=== PATIENT | female | born 1950 | race Caucasian/White ===

== ENCOUNTER 2021-10-18 13:36 | Outpatient (CLI) | payer MEDICARE, OTHER, SELFPAY ==
[2021-10-18 15:29] LABS: Basophils # 0.1 10^3/uL (0.0-0.1); Basophils % 1.8 %; Eosinophils # 0.2 10^3/uL (0.0-0.8); Eosinophils % 2.5 %; Hematocrit 45.6 % (37.0-47.0); Hemoglobin 14.1 g/dL (11.5-15.3); Lymphocytes # 1.3 10^3/uL (0.8-4.8); Lymphocytes % 17.1 %; Mean Corpuscular HGB Conc 30.9 g/dL (30.0-36.0); Mean Corpuscular Hemoglobin 31.9 pg (28.0-34.0); Mean Corpuscular Volume 103.2 fl (81-99); Mean Platelet Volume 10.1 fL (7.4-10.4); Monocytes # 0.5 10^3/uL (0.2-0.9); Monocytes % 6.7 %; Neutrophils % 71.4 %; Nucleated Red Blood Cells % 0 %; Platelet Count 576 10^3/cmm (130-400); Red Blood Count 4.42 10^6/uL (4.1-5.3); Red Cell Distribution Width 16.9 % (12.1-15.1); White Blood Count 7.3 10^3/uL (4.0-10.0)
[2021-10-18 15:57] LABS: Alanine Aminotransferase 7 U/L (0-33); Albumin Level 3.9 g/dL (3.5-5.2); Alkaline Phosphatase 90 IU/L (35-105); Blood Urea Nitrogen 27 mg/dL (8-23); Calcium 8.7 mg/dL (8.5-10.5); Carbon Dioxide 26 mmol/L (22-29); Chloride 100 mmol/L (98-107); Globulin 1.9 g/dL (1.3-4.6); Glucose 89 mg/dL (65-115); Osmolality Calculated 293 mOsm/kg (285-295); Sodium 139 mmol/L (136-145); Total Bilirubin 0.2 mg/dL (0.15-1.2); Total Protein 5.8 g/dL (6.6-8.7)
[2021-10-18 16:06] LABS: Anion Gap 18.4 (5-19); Aspartate Amino Transferase 15 U/L (0-32); Lactate Dehydrogenase 263 U/L (135-214); Potassium 5.4 mmol/L (3.5-5.1)
--- NOTE | 2021-10-18 18:36 | ONC CON_ITS ---
Dr. Mistry New Patient Note Patient: Yina Mata Unit #: [id number]: [id number] Dicatated By: Ap Mistry M.D.Date of Visit: Oct 18, 2021 Onc MED New Patient/Consult Referring Physician: Dr. TORRIE CHOI D.O. Chief Complaint: Essential thrombocythemia. History of Present Illness: This is a 71-year-old woman with a known diagnosis of essential thrombocythemia, JAK2 mutation positive. She had moved here from [place], [place] in June 2021. She had been under the care of a rehab aid for essential thrombocythemia. According to the available records, it was initially diagnosed in 2005. It appears that at that time she had pancytosis. Molecular analysis on the bone marrow confirmed presence of the JAK2 V617F mutation. It was negative for BCR/abl. She initially began treatment with hydroxyurea, but she did not tolerate it well. She was then treated with anagrelide until 2019, when it was no longer available. In December 2019 she restarted hydroxyurea. She has been able to tolerate it taking 1000 mg on Mondays, Wednesdays, and Fridays, 500 mg on Tuesdays and , and no treatment on weekends. With that dosage, she has been able to maintain a platelet count in the range of 500,000-600,000. Her history is also significant for having been hospitalized for a bleeding ulcer sometime in 2018 or early 2019. As of November 2019 she had become mildly anemic with her serum iron studies consistent with iron deficiency, and she was given parenteral iron infusion. Over the next year her hemoglobin increased from 11.2 g up to 16.7 g in November 2020. Her white blood cell count at that time was 11,100 and her platelet count was 557,000. She continued hydroxyurea at the same dosage. She says she feels pretty good generally, though she does have limited activity due to pretty severe arthritis pain in her knees. She has been reluctant to have a knee replacement due to a very complicated left total hip arthroplasty back in 2011. She is able to do light work. ECOG score is 1. She has good appetite and she has gained a little weight. She has not had fever. She occasionally has sweating at night. She occasionally has mouth sores with the hydroxyurea. She has not had sore throat or difficulty swallowing. She occasionally has cough. She says her breathing is pretty good, though she does have COPD. She does not complain of chest pain. She has occasional acid reflux symptoms. She has constipation off and on. She has no complaints. She also has joint pain in her hands and she has chronic low back pain. She does not complain of headache or dizziness. She has numbness in her feet due to peripheral neuropathy. Past Medical History: Her medical history includes anxiety, chronic obstructive pulmonary disease, degenerative arthritis, depression, dyslipidemia, history of bleeding ulcer in 2019, history of pulmonary embolism in 2018, macular degeneration, peripheral neuropathy, and valvular heart disease and congestive heart failure. Past Surgical History: Her surgical/procedural history includes left total hip arthroplasty in 2011 with multiple subsequent procedures on the left hip, ORIF for right ankle fracture in 2004, and tonsillectomy. Medications: Gabapentin 1 Capsule (of 400 mg) Oral four times a day, Hydroxyurea 1 Capsule (of 500 mg) Oral, Ibuprofen 1 - 4 Tablet (of 200 mg) Oral daily PRN, Mirtazapine 1 Tablet (of 15 mg) Oral daily, Multi Vitamin/Minerals 2 Tablet Oral daily, Omeprazole 1 Capsule (of 20 mg) Capsule Delayed Release Oral daily, oxyCODONE HCl 1 Tablet (of 15 mg) Oral four times a day PRN, Rivaroxaban 1 Tablet (of 20 mg) Oral daily, Spiriva HandiHaler 1 Capsule (of 18 mcg) Inhalation daily, Turmeric 1 Tablet (of 500 mg) Oral daily Allergies: No Known Allergies. Social History: Ms. Mata is . She has a history of smoking 1 pack of cigarettes daily for 50 years. She quit smoking in 2019. She has since then been chewing nicotine pouches. She had heavy alcohol use while she was in her 40s. Since 2019 she has been drinking just very occasionally. Family History: Ms. Mata's mother at age 95. Ms. Mata's father at age 40: cirrhosis. Father at age 40 with liver cirrhosis due to alcohol. Mother with natural causes at age 95. She has 1 sister who is in good health. Review Of Symptoms: Constitutional - Her energy is pretty good but she is a little slow and her activity is limited due to knee problems. She has good appetite and she has gained a little weight. She has not had fever. She occasionally has sweating at night. ECOG score is 1, Eyes - No change in vision, but she has glaucoma and macular degeneration, ENMT - She has hearing loss and tinnitus. No sinus congestion/drainage. No mouth sores. No sore throat or difficulty swallowing, Hematologic/Lymphatic - She bleeds easily from minor cuts. She does not have abnormal bruising, Respiratory - She says her breathing is pretty good. She has just occasional cough. No pleuritic pain or hemoptysis, Cardiovascular - No angina pain. No palpitations, Gastrointestinal - No nausea or vomiting. She occasionally has acid reflux. She has constipation off and on. No blood in the stool or black stools, Genitourinary (F) - No dysuria or hematuria. She has urinary frequency and nocturia. No urgency or incontinence, Musculoskeletal - She has pretty severe arthritis pain in her knees, left worse than right. She also has pain in her hands, and she has low back pain, Integumentary - No skin rash or other skin changes, Neurologic - No headache or dizziness. She has numbness in her feet, Psychiatric - She has had depression. No insomnia. Vital Signs: Performed on Oct 18, 2021 14:41: 3, 6, 21.86, 1.74 sq.m, 67 in, 92 % (LOW), 65 /min, 16 /min, 110/63 mm(hg), 98.2 F (LOW), and 139.6 lbs (HIGH). Physical Examination: Constitutional - She has limited mobility. She does not appear acutely ill, Eyes - Sclerae nonicteric. Conjunctivae clear, ENMT - No lesions noted in the oral cavity, Neck - No mass or thyromegaly, Hematologic/Lymphatic - No cervical, clavicular, or axillary adenopathy, Respiratory - Lungs are clear with diminished air movement bilaterally, Cardiovascular - Heart rhythm is regular. There is no murmur, gallop, or rub noted, Abdomen - Soft and non-tender. Liver is not enlarged. I am not able to palpate the spleen. There is no abdominal mass or ascites noted and there is no inguinal adenopathy, Back/Spine - No spine or CVA tenderness noted, Extremities - Slight edema. She has good dorsalis pedis pulses bilaterally, Integumentary - No rashes. No suspicious skin lesions noted, Neurologic - No focal neurologic deficits noted. Problem List: 1. Essential thrombocythemia, JAK2 mutation positive. 2. Degenerative arthritis with debilitating knee pain. 3. COPD. 4. GERD with history of bleeding ulcer in 2019. 5. History of pulmonary embolism in 2019, on chronic anticoagulation. 6. Valvular heart disease and history of congestive heart failure. 7. Dyslipidemia. 8. Peripheral neuropathy. 9. Macular degeneration. 10. Anxiety/depression. Problems Addressed with this Encounter and Plan: 1. Patient with longstanding history of essential thrombocythemia, JAK2 mutation positive. She had pancytosis at initial diagnosis, and it is unclear to me why she was labeled as essential thrombocythemia as opposed to polycythemia rubra vera. It is of no practical importance other than with polycythemia we would add phlebotomy to keep her hematocrit at 42% or less. However, as long as her other blood counts are adequately controlled and she is stable clinically, I will just have her continue the hydroxyurea at the same dosage. I will check baseline laboratory studies today to include CBC, comprehensive metabolic profile, and LDH level. Given her long-term stability, I will just plan to monitor her at 3-month intervals. 2. She has a history of pulmonary embolism in 2019. In the setting of an underlying myeloproliferative disorder, she should be on long-term anticoagulation. She will continue rivaroxaban 20 mg daily. Signed By: Ap Mistry M.D. <<Signature on File>>
== END 2021-10-18 13:37 | disposition home or self-care (01) ==
LOC: ONCMED 13:50
PROVIDERS: PCP Family Medicine; Visit Provider Internal Medicine Medical Oncology
DX: D47.3 Essential (hemorrhagic) thrombocythemia (principal); F41.9 Anxiety disorder, unspecified; J44.9 Chronic obstructive pulmonary disease, unspecified; F32.A Depression, unspecified; I50.9 Heart failure, unspecified; E78.5 Hyperlipidemia, unspecified; Z79.899 Other long term (current) drug therapy; Z86.711 Personal history of pulmonary embolism
CPT/HCPCS: 36415; 80053; 83615; 85025; 99205

== ENCOUNTER 2021-11-30 06:00 | Outpatient (RCR) | payer MEDICARE, OTHER, SELFPAY | END 2021-12-27 23:59 | disposition home or self-care (01) | LOC: SPT 06:00 | PROVIDERS: PCP Family Medicine; Referring Provider Family Medicine; Visit Provider Family Medicine | DX: M43.07 Spondylolysis, lumbosacral region (principal) | CPT/HCPCS: 97110; 97161 ==

== ENCOUNTER 2021-12-20 16:11 | Outpatient (CLI) | payer MEDICARE, OTHER, SELFPAY ==
--- NOTE | 2021-12-20 16:00 | MR_ITS ---
WS: [id number] MRI LEFT KNEE HISTORY: chronic left knee pain COMPARISON: None available. Anterior cruciate ligament: Small amount increased signal and loss of the normal contour of the dista l ACL. Suspect there is probably a partial tear which may be chronic along the distal anterior bundle . No full-thickness tear. Posterior cruciate ligament: Intact. Medial collateral ligament: Intact but mildly displaced from the joint line. Posterior lateral corner structures: Probably intact. Displaced from the joint line by osteophytes an d fluid. Medial menisci: Intact. Normal signal, size and shape. Lateral meniscus: No identifiable anterior or posterior horns of the lateral meniscus. Posterior horn location is filled with fluid. The anterior horn appears subluxed from the joint and abnormal signal . Extensor mechanism: Distal quadriceps tendon and patellar tendons are intact. Fluid and soft tissue: There is a large joint effusion. There is extensive soft tissue edema surround ing the knee. No Justice's cyst. Osseous and articular structures: Patellofemoral compartment: Moderate narrowing of the patellofemoral joint space with near complete l oss of cartilage. There is very slight lateral subluxation of the patella. No marrow edema or fractur e. Medial compartment: Mild narrowing of the medial compartment. There is complete loss of cartilage wit h osteophytes along the joint line. Lateral compartment: Marked narrowing of the lateral compartment. Complete loss of cartilage with asy mmetric widening of the joint space. The posterior joint space is widened and there is near bone upon bone involving the anterior compartment. Subchondral cystic changes and marrow edema in the femoral condyle and tibial plateau. 16 mm bone lesion at the femoral metaphysis is probably enchondroma. Margins are slightly lobulated a nd there is mixed signal on the T2 and proton density sequences. MR/MR knee LT con* [id number] IMPRESSION: 1. Moderate to severe multicompartment changes of osteoarthritis and degenerat yanely joint disease. 2. Severe lateral compartment internal degeneration with loss of cartilage, jemal ne upon bone, marrow edema and diffusely abnormal meniscus. 3. Partial tear anterior distal ACL. 4. Large joint effusion and soft tissue edema. 5. Mild narrowing medial compartment with complete loss of cartilage and joint line osteophytes. 6. Moderate patellofemoral joint space osteoarthritis and chondromalacia.
== END 2021-12-20 16:12 | disposition home or self-care (01) ==
LOC: RAD 16:15
PROVIDERS: PCP Family Medicine; Visit Provider Family Medicine
DX: S83.512A Sprain of anterior cruciate ligament of left knee, initial encounter (principal); X58.XXXA Exposure to other specified factors, initial encounter; M25.462 Effusion, left knee; R60.0 Localized edema; M94.262 Chondromalacia, left knee
CPT/HCPCS: 73721

== ENCOUNTER 2021-12-28 06:00 | Outpatient (RCR) | payer MEDICARE, OTHER, SELFPAY | END 2022-01-01 23:59 | disposition home or self-care (01) | LOC: SPT 06:00 | PROVIDERS: PCP Family Medicine; Referring Provider Family Medicine; Visit Provider Family Medicine | DX: M43.07 Spondylolysis, lumbosacral region (principal) | CPT/HCPCS: 97110 ==

== ENCOUNTER 2022-01-21 12:02 | Outpatient (CLI) | payer MEDICARE, OTHER, SELFPAY ==
[2022-01-21 12:33] LABS: Basophils # 0.1 10^3/uL (0.0-0.1); Basophils % 1.6 %; Eosinophils # 0.2 10^3/uL (0.0-0.8); Eosinophils % 2.2 %; Hematocrit 44.6 % (37.0-47.0); Hemoglobin 13.9 g/dL (11.5-15.3); Lymphocytes # 1.1 10^3/uL (0.8-4.8); Lymphocytes % 14.8 %; Mean Corpuscular HGB Conc 31.2 g/dL (30.0-36.0); Mean Corpuscular Hemoglobin 31.5 pg (28.0-34.0); Mean Corpuscular Volume 101.1 fl (81-99); Mean Platelet Volume 10.3 fL (7.4-10.4); Monocytes # 0.7 10^3/uL (0.2-0.9); Monocytes % 8.6 %; Neutrophils # 5.55 10^3/uL (1.8-7.7); Neutrophils % 71.9 %; Nucleated Red Blood Cells % 0 %; Platelet Count 657 10^3/cmm (130-400); Red Blood Count 4.41 10^6/uL (4.1-5.3); Red Cell Distribution Width 15.5 % (12.1-15.1); White Blood Count 7.7 10^3/uL (4.0-10.0)
[2022-01-21 13:06] LABS: Alanine Aminotransferase 9 U/L (0-33); Albumin Level 4.2 g/dL (3.5-5.2); Alkaline Phosphatase 99 IU/L (35-105); Anion Gap 15.9 (5-19); Aspartate Amino Transferase 13 U/L (0-32); Blood Urea Nitrogen 23 mg/dL (8-23); Calcium 8.8 mg/dL (8.5-10.5); Carbon Dioxide 29 mmol/L (22-29); Chloride 98 mmol/L (98-107); Globulin 2.3 g/dL (1.3-4.6); Glucose 110 mg/dL (65-115); Osmolality Calculated 290 mOsm/kg (285-295); Potassium 4.9 mmol/L (3.5-5.1); Sodium 138 mmol/L (136-145); Total Bilirubin 0.3 mg/dL (0.15-1.2); Total Protein 6.5 g/dL (6.6-8.7)
[2022-01-21 14:16] LABS: Lactate Dehydrogenase 424 U/L (135-214)
--- NOTE | 2022-01-24 12:47 | ONC FU_ITS ---
Lisa Bansal Progress Note Patient: Yina Mata Unit #: [id number]: [id number] Dicatated By: Lisa Bansal N.P.Date of Visit:Jan 21, 2022 Onc MED Follow-up/Prog Note Chief Complaint: Essential thrombocythemia. History of Present Illness: This is a 71-year-old woman with a known diagnosis of essential thrombocythemia, JAK2 mutation positive. She had moved here from [place], [place] in June 2021. She had been under the care of a park interpretive ranger for essential thrombocythemia. According to the available records, it was initially diagnosed in 2005. It appears that at that time she had pancytosis. Molecular analysis on the bone marrow confirmed presence of the JAK2 V617F mutation. It was negative for BCR/abl. She initially began treatment with hydroxyurea, but she did not tolerate it well. She was then treated with anagrelide until 2019, when it was no longer available. In December 2019 she restarted hydroxyurea. She has been able to tolerate it taking 1000 mg on Mondays, Wednesdays, and Fridays, 500 mg on Tuesdays and , and no treatment on weekends. With that dosage, she has been able to maintain a platelet count in the range of 500,000-600,000. Her history is also significant for having been hospitalized for a bleeding ulcer sometime in 2018 or early 2019. As of November 2019 she had become mildly anemic with her serum iron studies consistent with iron deficiency, and she was given parenteral iron infusion. Over the next year her hemoglobin increased from 11.2 g up to 16.7 g in November 2020. Her white blood cell count at that time was 11,100 and her platelet count was 557,000. She continued hydroxyurea at the same dosage. Patient presents today for follow-up. She states that she is feeling pretty good. She just has very mild fatigue. Her ECOG is 1. Her appetite has been good. No fever, chills, night sweats. No sinus drainage or mouth sores. She has some mild shortness of breath with activity. No cough or chest pain. No GI or problem did she does have bilateral knee pain that makes it a little difficult for ambulation at times. She also has peripheral neuropathy in her bilateral lower extremities. Review Of Symptoms: See above. Past Medical History: Anxiety Chronic obstructive pulmonary disease Degenerative arthritis Depression Dyslipidemia History of bleeding ulcer in 2019 History of pulmonary embolism in 2018 Macular degeneration Peripheral neuropathy Valvular heart disease and congestive heart failure Past Surgical History: Left total hip arthroplasty in 2011 with multiple subsequent procedures on the left hip ORIF for right ankle fracture in 2004 Tonsillectomy Covid vaccine booster Pfizer in 2020 Covid vaccine #2 Pfizer in 2020 Covid vaccine #1 Pfizer in 2020 Allergies: No Known Allergies. Medications: Gabapentin 1 Capsule (of 400 mg) Oral four times a day Hydroxyurea 1 Capsule (of 500 mg) Oral Ibuprofen 1 - 4 Tablet (of 200 mg) Oral daily PRN Mirtazapine 1 Tablet (of 15 mg) Oral daily Multi Vitamin/Minerals 2 Tablet Oral daily Omeprazole 1 Capsule (of 20 mg) Capsule Delayed Release Oral daily oxyCODONE HCl 1 Tablet (of 15 mg) Oral four times a day PRN Rivaroxaban 1 Tablet (of 20 mg) Oral daily Spiriva HandiHaler 1 Capsule (of 18 mcg) Inhalation daily Turmeric 1 Tablet (of 500 mg) Oral daily Family History: Ms. Mata's mother at age 95. Ms. Mata's father at age 40: cirrhosis. Father at age 40 with liver cirrhosis due to alcohol. Mother with natural causes at age 95. She has 1 sister who is in good health. Social History: Ms. Mata is . Ms. Mata no longer smokes. She has no history of drinking. She has indicated exposure to the following products: chewing tobacco. She has a history of smoking 1 pack of cigarettes daily for 50 years. She quit smoking in 2019. She has since then been chewing nicotine pouches. She had heavy alcohol use while she was in her 40s. Since 2019 she has been drinking just very occasionally. Physical Examination: Performed on Jan 21, 2022 13:36: Height - 67.00 in, Weight - 137.0 lbs (LOW), BSA - 1.72 sq.m, BMI - 21.46, Temperature - 98.6 F, Pulse - 68 /min, Respiration - 18 /min, BP - 116/75 mm(hg), O2 Sat - 99 %, Pain - 5, and Fatigue - 3. Performance Status: 1 - No physically strenuous activity, but ambulatory and able to carry out light or sedentary work (e.g. office work, light house work). (ECOG) Constitutional Alert, cooperative, oriented. Mood and affect appropriate. Appears close to chronological age. Well nourished. Well developed. Head Normocephalic; no scars. Respiratory Lungs are clear to auscultation without rhonchi or wheezing. Cardiovascular Regular rate and rhythm of heart without murmurs, gallops or rubs. Abdomen Non-tender, non-distended, no masses, ascites or hepatosplenomegaly. Good bowel sounds. No guarding or rebound tenderness. Musculoskeletal No tenderness or swelling, normal range of motion without obvious weakness. Psychiatric Alert and oriented times three. Coherent speech. Verbalizes understanding of our discussions today. Laboratory: Test performed on Jan 21, 2022 12:22 LDH (Total) 424 U/L Sodium 138 mmol/L Potassium 4.9 mmol/L Chloride 98 mmol/L CO2 29 mmol/L Anion Gap 15.9 BUN 23 mg/dL Creatinine 0.8 mg/dL Cr Clearance (Est) 61.4400 mL/min Glucose 110 mg/dL Osmolality - Calculated 290 mOsm/kg Calcium 8.8 mg/dL Protein, Total 6.5 g/dL Albumin 4.2 g/dL Globulin 2.3 g/dL Bilirubin, Total 0.3 mg/dL ALT (SGPT) 9 U/L AST (SGOT) 13 U/L Alkaline Phosphatase 99 IU/L WBC 7.7 10 3/uL RBC 4.41 10 6/uL HGB 13.9 g/dL HCT 44.6 % MCV 101.1 fl MCH 31.5 pg MCHC 31.2 g/dL RDW 15.5 % Platelet Count 657 10 3/cmm MPV 10.3 fL Neutrophils 5.55 10 3/uL Lymphocytes 1.1 10 3/uL Monocytes 0.7 10 3/uL Eosinophils 0.2 10 3/uL Basophils 0.1 10 3/uL Neutrophil % 71.9 % Lymphocyte % 14.8 % Monocyte % 8.6 % Eosinophil % 2.2 % Basophils % 1.6 % NRBC % 0 % Impression: 1. Essential thrombocythemia, JAK2 mutation positive. 2. Degenerative arthritis with debilitating knee pain. 3. COPD. 4. GERD with history of bleeding ulcer in 2019. 5. History of pulmonary embolism in 2019, on chronic anticoagulation. 6. Valvular heart disease and history of congestive heart failure. 7. Dyslipidemia. 8. Peripheral neuropathy. 9. Macular degeneration. 10. Anxiety/depression. Plan: 1. Patient with longstanding history of essential thrombocythemia, JAK2 mutation positive. She had pancytosis at initial diagnosis, and it is unclear to me why she was labeled as essential thrombocythemia as opposed to polycythemia rubra vera. It is of no practical importance other than with polycythemia we would add phlebotomy to keep her hematocrit at 42% or less. However, as long as her other blood counts are adequately controlled and she is stable clinically, we will just have her continue the hydroxyurea at the same dosage. Baseline laboratory studies were checked at last visit. Given her long-term stability, we will just plan to monitor her at 3-month intervals. She presents today for follow-up. She is currently on hydroxyurea 5 days a week. She takes 2 tabs 3 days a week and 1 tab 2 days a week. She has been on this dose for quite some time and has tolerated it well. Her labs remained stable. We will not change her dosing at this time. She will return to the clinic in 3 months with CBC CMP and LDH. 2. She has a history of pulmonary embolism in 2019. In the setting of an underlying myeloproliferative disorder, she should be on long-term anticoagulation. She will continue rivaroxaban 20 mg daily. Signed By: Lisa aBnsal N.P. <<Signature on File>>
== END 2022-01-21 12:03 | disposition home or self-care (01) ==
LOC: ONCMED 12:07
PROVIDERS: Internal Medicine Medical Oncology; Visit Provider Nurse Practitioner Family
DX: D69.3 Immune thrombocytopenic purpura (principal); Z86.711 Personal history of pulmonary embolism; Z79.01 Long term (current) use of anticoagulants
CPT/HCPCS: 36415; 80053; 83615; 85025; 99214

== ENCOUNTER → 2022-01-22 11:05 | Outpatient (BNVA) | payer MEDICARE, OTHER, SELFPAY | PROVIDERS: Referring Provider Family Medicine; Visit Provider Orthopaedic Surgery | DX: M17.12 Unilateral primary osteoarthritis, left knee (principal); F17.200 Nicotine dependence, unspecified, uncomplicated | CPT/HCPCS: 73560; 73565; 99203; 99204 ==

== ENCOUNTER → 2022-01-28 10:52 | Outpatient (BNVA) | payer MEDICARE, OTHER, SELFPAY | PROVIDERS: Visit Provider Family Medicine | DX: Z13.6 Encounter for screening for cardiovascular disorders (principal); B00.2 Herpesviral gingivostomatitis and pharyngotonsillitis; M17.12 Unilateral primary osteoarthritis, left knee; G47.00 Insomnia, unspecified; Z72.0 Tobacco use; M43.07 Spondylolysis, lumbosacral region | CPT/HCPCS: 80061 ==

== ENCOUNTER 2022-02-10 12:24 | Inpatient (IN) | payer MEDICARE, OTHER, SELFPAY ==
[2022-02-10] VITALS (8 sets, daily range): BP systolic 97–124; BP diastolic 59–80; PULSE 63–78; RESP 14–19; TEMP 36.7–37; O2SAT 90–96; BMI 21.9; BMI 21.8
--- NOTE | 2022-02-10 12:35 | XRR_ITS ---
PROCEDURE INFORMATION: Exam: XR Right Hip Exam date and time: 02/10/2022 1:05 PM Age: 71 years old Clinical indication: Injury or trauma; Blunt trauma (contusions or hematomas); Right; Patient HX: C/O R hip pain after falling 8 days ago; Additional info: Fall with R hip pain TECHNIQUE: Imaging protocol: XR Right hip. Views: 1 view hip with pelvis when performed. COMPARISON: No relevant prior studies available. FINDINGS: Bones/joints: No fracture. No dislocation. Minimal axial joint space narrowing with tiny osteophyte off of the posterior femoral head articular margin. Soft tissues: No acute soft tissue abnormality. XR/XR hip RT 2-3V wo/w pel* [id number] IMPRESSION: 1. No acute osseous abnormality. 2. Mild osteoarthritis.
[2022-02-10] MEDS: morphine 4 mg/mL SDV 1 mL IM (13:11)
--- NOTE | 2022-02-10 13:20 | ED_ITS ---
HPI - General Adult General: Chief complaint: General Medical Stated complaint: Injured right hip from fall Time Seen by Provider: 02/10/22 12:56 History of Present Illness: Patient is a 71-year-old female with history of Xarelto for PE, pression, hyperlipidemia, COPD who presents the emergency room for evaluation of right-sided hip pain x8 days. Patient tells me that he was standing a days ago while tying her shoes and fell onto her right hip. Patient denies hitting her head. Patient has since then has had right-sided hip pain. Patient reports inner groin pain and muscle pain with range of motion. Patient is a walker at home for ambulation. Because the pain has not improved patient said to come to the emergency room for further evaluation. Patient denies any other injury or pain. Denies any chest pain, shortness breath, palpitation, lightheadedness, nausea/vomiting, fever/chill, abdominal pain around the time of fall. Onset: 8 days ago Duration:8 days Location:home Severity:moderate Associated symptoms: Deny chest pain, dyspnea, nausea, rash, palpitations or vomiting Review of Systems Const: Denies: fever(s) or chills Eyes: Denies: change in vision ENMT: Denies: mouth pain Card: Denies: chest pain or palpitations Resp: Denies: dyspnea or non-productive cough GI: Denies: abdominal pain, nausea, vomiting or diarrhea : Denies: dysuria Musc: Denies: extremity pain Skin/Breast: Denies: rash or new lesions Neuro: Reports: other (+R hip pain); Denies: weakness in extremities Psych: Reports: other (Normal mood) Fidel/Lymph: Denies: easy bruising PFSH ED PFSH: Medical History Chronic pain syndrome COPD (chronic obstructive pulmonary disease) Depression Dyslipidemia Essential thrombocythemia Former smoker Heart failure Hx of pulmonary embolus Lumbosacral spondylolysis Macular degeneration of both eyes Osteoarthritis Peptic ulcer disease Pulmonary HTN Scoliosis Surgical History History of ankle surgery History of total left hip replacement Hx of tonsillectomy Family History Father Alcoholic cirrhosis of liver Social History (Updated 02/10/22 @ 17:52 by Daryl Parikh MD) Smoking and tobacco status: current every day smoker (former tobacco smoker. current vape usage) e-cigarettes E-Cigarette Details: vaporizer device Alcohol intake: never Substance/Drug Use: never Lives independently: Yes Household members: none Marital status: / Current occupational status: retired Physical Exam Const: COMMON NORMALS: alert HENMT: COMMON NORMALS: atraumatic HEAD & SCALP: atraumatic MOUTH: moist mucous membranes not abnormal Eye: COMMON NORMALS: EOMs intact bilaterally and conjunctivae normal CONJUNCTIVA: Yes conjunctivae normal Neck/C-Spine: COMMON NORMALS: full ROM and supple Resp: COMMON NORMALS: normal respiratory effort and clear to auscultation bilaterally AUSCULTATION: clear to auscultation bilaterally Cardio: COMMON NORMALS: regular rate RATE: regular rate GI: COMMON NORMALS: Soft to palpation and non-tender PALPATION: Yes Soft to palpation Extremity: COMMON NORMALS: full ROM OTHER: + Pain with range of motion of the right hip, strength 5 out 5 in the right lower extremity, sensation intact in the right lower extremity, 2+ DP/PT pulses in the right lower extremity Neuro: SENSORIUM/ORIENTATION: Yes alert MOTOR EXAM: No Abnormal motor strength present and Other motor observations present (no focal motor deficits) Psych: COMMON NORMALS: speech normal SPEECH: Yes normal speech MOOD & AFFECT: Yes euthymic mood Course Vital Signs: Vital signs: Vital Signs Temperature 97.5 F L 02/11/22 07:18 Pulse Rate 78 02/11/22 08:26 Respiratory Rate 20 H 02/11/22 09:33 Blood Pressure 103/65 02/11/22 07:18 Pulse Oximetry 93 02/11/22 08:25 MDM - General Adult Medical Decision Making 71-year-old female with a history of Xarelto use for PE, CHF, hypertension, hyperlipidemia presenting to the emergency room with concerns for persistent right-sided hip pain x8 days. Rx was given, patient has pain with range of mot ion, otherwise intact range of motion. Neurovascular exam intact in the right lower extremity. X-ray did not show any focal findings. CT of the hip showed R greater trochantric fracture non displaced. S/p morphine and dilaudid. Case was discussed with Dr. Castillo who recommended conservative management for now. She still has significant pain inability to ambulate, will admit patient for observation. Disposition: admission Lab Data : 02/10/22 15:15 02/11/22 04:29 Radiology Impressions Hip/Pelvis X-Ray 02/10/22 12:35 IMPRESSION: 1. No acute osseous abnormality. 2. Mild osteoarthritis. ADDENDUM: 02/10/22 4256 The patient had a subsequent CT scan which showed a nondisplaced fracture of the right femoral greater trochanter. See that separate report. Hip CT 02/10/22 13:48 IMPRESSION: Nondisplaced right femoral greater trochanter fracture. Imaging Data Other Imaging: Radiologist's impression: [address] [address] XRay Report Signed Patient: Yina Mata Unit #: [id number] : 1950 Age/Sex: 71 / F ADM Date: 02/10/22 Loc: ER Room/Bed: Attending Dr: Ordering Provider/Ordering MD: Keren Smith Date of Service: 02/10/22 Procedure(s): XR hip RT 2-3V wo/w pel* [id number] Accession Number(s): [id number] Report Number: [id number] PROCEDURE INFORMATION: Exam: XR Right Hip Exam date and time: 02/10/2022 1:05 PM Age: 71 years old Clinical indication: Injury or trauma; Blunt trauma (contusions or hematomas); Right; Patient HX: C/O R hip pain after falling 8 days ago; Additional info: Fall with R hip pain TECHNIQUE: Imaging protocol: XR Right hip. Views: 1 view hip with pelvis when performed. COMPARISON: No relevant prior studies available. FINDINGS: Bones/joints: No fracture. No dislocation. Minimal axial joint space narrowing with tiny osteophyte off of the posterior femoral head articular margin. Soft tissues: No acute soft tissue abnormality. XR/XR hip RT 2-3V wo/w pel* [id number] IMPRESSION: 1. No acute osseous abnormality. 2. Mild osteoarthritis. ? Dictated By: Issac George Signed By: Issac George Signed Date/Time: 02/10/22 1345 DD/ [address] [address] [address] Scan Report Signed Patient: Yina Mata Unit #: [id number] : 1950 Age/Sex: 71 / F ADM Date: 02/10/22 Loc: ER Room/Bed: Attending Dr: Ordering Provider/Ordering MD: Torin Haynes MD Date of Service: 02/10/22 Procedure(s): CT hip RT wo con* [id number] Accession Number(s): [id number] Report Number: [id number] PROCEDURE INFORMATION: Exam: CT Right Lower Extremity Without Contrast, Hip Exam date and time: 02/10/2022 2:02 PM Age: 71 years old Clinical indication: Injury or trauma; Fall; Blunt trauma; Hip; Right; Additional info: Hip pain TECHNIQUE: Imaging protocol: CT of the Right lower extremity without contrast was performed. Exam focused on the hip. Radiation optimization: All CT scans at this facility use at least one of these dose optimization techniques: automated exposure control; mA and/or kV adjustment per patient size (includes targeted exams where dose is matched to clinical indication); or iterative reconstruction. COMPARISON: CR (PELVIS, ) 02/10/2022 1:05 PM RADIATION DOSE METRICS: Total DLP (mGy-cm): 1360.62 FINDINGS: Bones/joints: There is a nondisplaced fracture of the right femoral greater trochanter. No femoral neck fracture. No hip dislocation. Minimal hip joint degeneration. Soft tissues: There is increased attenuation and stranding in the subcutaneous fat lateral to the proximal right femur compatible with a superficial soft tissue contusion. CT/CT hip RT wo con* [id number] IMPRESSION: Nondisplaced right femoral greater trochanter fracture. ? Dictated By: Issac George Signed By: Issac George Signed Date/Time: 02/10/22 1434 DD/ 1402 Discharge Plan Discharge Patient Disposition: Admitted As Inpatient Admit Provider: Daryl Parikh Clinical Impression: Acute hip pain, Closed trochanteric fracture of hip Condition: Stable Discharge Diet: Advance as tolerated Discharge Activity: Increase activity as tolerated Coding Level of Care Code ED Transliterator for [place] Fwd Exam Comprehensive
[2022-02-10] MEDS: acetaminophen 500 mg Tablet PO (13:45)
[2022-02-10] MEDS: lidocaine 5% Patch 1 PATCH TOPICAL ×2 (13:46→20:52)
--- NOTE | 2022-02-10 13:48 | CTR_ITS ---
PROCEDURE INFORMATION: Exam: CT Right Lower Extremity Without Contrast, Hip Exam date and time: 02/10/2022 2:02 PM Age: 71 years old Clinical indication: Injury or trauma; Fall; Blunt trauma; Hip; Right; Additional info: Hip pain TECHNIQUE: Imaging protocol: CT of the Right lower extremity without contrast was performed. Exam focused on the hip. Radiation optimization: All CT scans at this facility use at least one of these dose optimization techniques: automated exposure control; mA and/or kV adjustment per patient size (includes targeted exams where dose is matched to clinical indication); or iterative reconstruction. COMPARISON: CR (PELVIS, ) 02/10/2022 1:05 PM RADIATION DOSE METRICS: Total DLP (mGy-cm): 1360.62 FINDINGS: Bones/joints: There is a nondisplaced fracture of the right femoral greater trochanter. No femoral neck fracture. No hip dislocation. Minimal hip joint degeneration. Soft tissues: There is increased attenuation and stranding in the subcutaneous fat lateral to the proximal right femur compatible with a superficial soft tissue contusion. CT/CT hip RT wo con* [id number] IMPRESSION: Nondisplaced right femoral greater trochanter fracture.
--- NOTE | 2022-02-10 14:59 | ECG_ITS ---
[facility] Test Date: 2022-02-10 Pat Name: Yina Mata Department: Room: Gender: Female Manager Organizational: : 1950 Requested By: Torin Haynes Order Number: [id number] Yashira MD: Renate Sanchez M.D. Measurements Intervals [place] Rate: 64 P: 54 UT: 180 QRS: 55 QRSD: 82 T: 45 QT: 411 QTc: 425 Interpretive Statements SINUS RHYTHM No previous ECG available for comparison Electronically Signed On 02-11-2022 17:39:31 CDT by Renate Sanchez M.D. [id number]
[2022-02-10 15:23] LABS: Basophils # 0.1 10^3/uL (0.0-0.1); Basophils % 1.4 %; Eosinophils # 0.1 10^3/uL (0.0-0.8); Eosinophils % 1.4 %; Hematocrit 43.1 % (37.0-47.0); Hemoglobin 13.6 g/dL (11.5-15.3); Lymphocytes # 1.4 10^3/uL (0.8-4.8); Lymphocytes % 16.4 %; Mean Corpuscular HGB Conc 31.6 g/dL (30.0-36.0); Mean Corpuscular Hemoglobin 31.5 pg (28.0-34.0); Mean Corpuscular Volume 99.8 fl (81-99); Mean Platelet Volume 10.6 fL (7.4-10.4); Monocytes # 0.6 10^3/uL (0.2-0.9); Monocytes % 7.5 %; Neutrophils # 6.08 10^3/uL (1.8-7.7); Neutrophils % 72.6 %; Nucleated Red Blood Cells % 0 %; Platelet Count 565 10^3/cmm (130-400); Red Blood Count 4.32 10^6/uL (4.1-5.3); Red Cell Distribution Width 15.9 % (12.1-15.1); White Blood Count 8.4 10^3/uL (4.0-10.0)
[2022-02-10] MEDS: HYDROmorphone 1 mg/mL INJ 1 mL 0.5 MG IVP (15:30)
[2022-02-10 15:45] LABS: Blood Urea Nitrogen 26 mg/dL (8-23); Calcium 9.6 mg/dL (8.5-10.5); Carbon Dioxide 26 mmol/L (22-29); Chloride 102 mmol/L (98-107); Creatinine Clr Calc Pharmacy 61.6575; Glucose 94 mg/dL (65-115); Osmolality Calculated 293 mOsm/kg (285-295); Sodium 139 mmol/L (136-145)
[2022-02-10 15:48] LABS: Partial Thromboplastin Time 33.3 SECONDS (23.9-36.7)
[2022-02-10 16:08] LABS: Anion Gap 16.6 (5-19)
[2022-02-10 16:09] LABS: Potassium 5.6 mmol/L (3.5-5.1)
--- NOTE | 2022-02-10 17:50 | PM.HP ---
Providers/Chief Complaint Admitting Physician: Daryl Parikh Chief Complaint: Injured right hip from fall History of Present Illness Very pleasant 71-year-old lady presented to the hospital after tripping on a loose rug and falling down, with persistent pain in the right hip, despite outpatient medications, limiting movement. Hip CT showed nondisplaced right femoral greater trochanteric fracture. Orthopedic surgery is consulted in ER. Request is made for observation for pain management, initiation of conservative measures, and assessment and discussion with orthopedics. Review of Systems Const: Denies: fever(s), chills, body aches or malaise Eyes: Denies: change in vision, eye discomfort or eye redness ENMT: Denies: throat pain, oral sores or ear or mastoid pain Card: Denies: chest pain, edema, pre-syncope or dyspnea on exertion Resp: Denies: dyspnea, productive cough, change in phlegm color or hemoptysis GI: Denies: abdominal pain, nausea, vomiting, diarrhea, constipation, hematochezia or melena : Denies: flank pain, urinary frequency or hematuria Musc: Reports: joint pain (R hip); Denies: back pain, joint swelling or joint redness Skin/Breast: Denies: rash or new lesions Neuro: Denies: headache(s), numbness in extremities, weakness in extremities, dizziness, confusion or seizure-like activity Endo: Denies: polyuria or polydipsia Fidel/Lymph: Denies: easy bleeding or tender lymph nodes All/Imm: Denies: urticaria or tongue swelling Medications/Allergies Home Medications Medication Instructions Recorded Confirmed Last Taken Type cholecalciferol (vitamin D3) 25 25 mcg PO DAILY 08/20/21 02/10/22 02/10/22 History mcg (1,000 unit) capsule magnesium carb,citrate,oxide 300 mg PO DAILY 08/20/21 02/10/22 02/10/22 History (Magnesium Complex) milk thistle seed extract 300 mg PO DAILY 08/20/21 02/10/22 02/10/22 History htntaovqmpvp-qwdgugib-ikygod tablet 1 tab PO DAILY tab 08/20/21 02/10/22 02/10/22 History vitamins A,C,P-jvnq-uxaqbh 14,320 1 cap PO BID 08/20/21 02/10/22 02/10/22 History unit-226 mg-200 unit capsule (PreserVision AREDS) hydroxyurea 500 mg capsule 500 mg PO .COMPLEX 90 Days #96 cap 11/05/21 02/10/22 02/08/22 Rx 500 mg oxycodone 15 mg tablet 15 mg PO QID PRN 30 Days #120 tab 11/05/21 02/10/22 Unknown Rx rivaroxaban 20 mg tablet (Xarelto) 20 mg PO DAILY 90 Days #90 tab 12/06/21 02/10/22 02/10/22 Rx tiotropium bromide 18 mcg capsule 1 cap INHALATION DAILY 30 Days #30 12/10/21 02/10/22 02/10/22 Rx with inhalation device (Spiriva inh with HandiHaler) omeprazole 20 mg capsule,delayed 20 mg PO DAILY #30 cap 01/15/22 02/10/22 02/10/22 Rx release acyclovir 800 mg tablet 800 mg PO TID PRN 02/10/22 02/10/22 Unknown History gabapentin 400 mg capsule 400 mg PO .5 TIMES DAILY 02/10/22 02/10/22 02/10/22 History mirtazapine 30 mg tablet 15 mg PO BEDTIME 02/10/22 02/10/22 02/09/22 History Allergies Allergy/AdvReac Type Severity Reaction Status Date / Time No Known Allergies Allergy Verified 01/28/22 10:12 PFSH Acute PFSH: Medical History Chronic pain syndrome COPD (chronic obstructive pulmonary disease) Depression Dyslipidemia Essential thrombocythemia Former smoker Heart failure Hx of pulmonary embolus Lumbosacral spondylolysis Macular degeneration of both eyes Osteoarthritis Peptic ulcer disease Pulmonary HTN Scoliosis Surgical History History of ankle surgery History of total left hip replacement Hx of tonsillectomy Family History Father Alcoholic cirrhosis of liver Social History (Updated 02/10/22 @ 17:52 by Daryl Parikh MD) Smoking and tobacco status: current every day smoker (former tobacco smoker. current vape usage) e-cigarettes E-Cigarette Details: vaporizer device Alcohol intake: never Substance/Drug Use: never Lives independently: Yes Household members: none Marital status: / Current occupational status: retired Vitals/I&O/Wt Last Vital Signs Temp 98.0 F 02/10/22 12:38 Pulse 68 02/10/22 16:05 Resp 16 02/10/22 16:05 BP 109/72 02/10/22 16:05 Pulse Ox 90 02/10/22 16:05 Weight last 48 hrs Weight 63.14 kg Weight 63.503 kg Physical Exam Narrative: Antalgic positioning in bed, has difficulty repositioning for examination due to pain Const: COMMON NORMALS: alert GENERAL APPEARANCE: cooperative ORIENTATION/CONSCIOUSNESS: Yes awake HENMT: COMMON NORMALS: normocephalic, EAC's normal, Normal external nose present and moist oral mucous membranes HEAD & SCALP: normocephalic NOSE: Normal external nose present EXTERNAL AUDITORY CANAL: EAC's normal Neck/C-Spine: COMMON NORMALS: no meningeal signs Chest: CHEST: Yes Symmetrical chest wall rise Resp: COMMON NORMALS: clear to auscultation bilaterally AUSCULTATION: clear to auscultation bilaterally Cardio: COMMON NORMALS: regular rate, regular rhythm and No murmurs present (Cardio) RATE: regular rate RHYTHM: regular rhythm GI: COMMON NORMALS: Normal to inspection, nondistended, normoactive bowel sounds present, Soft to palpation and non-tender PALPATION: Yes Soft to palpation Extremity: COMMON NORMALS: no pedal edema OTHER: No swelling or fluactuance R hip. Limb perfused, no loss of sensation. Neuro: COMMON NORMALS: moves all extremities SENSORIUM/ORIENTATION: Yes alert MENINGEAL SIGNS: Yes no meningeal signs Psych: COMMON NORMALS: mental status grossly normal Skin: COMMON NORMALS: no wounds RASHES: no rashes Data : 02/10/22 15:15 02/10/22 15:15 A&P Assessment and plan (1) Acute hip pain: Severe pain limiting repositioning, transfers, ambulation. Close greater trochanteric fracture of right hip after a mechanical fall. Pain control, add lidocaine patch, continue oxycodone, morphine for breakthrough, adjust depending on response. PT. Attempted mobilization with walker. Orthopedic assessment. Disposition planning depending on response. Status: Acute (2) Closed trochanteric fracture of hip: Pending additional orthopedic assessment. Prescription for now continue Xarelto. Status: Acute (3) Hyperkalemia: Low potassium diet, follow-up chemistry. Status: Acute Plan History of PE: On chronic anticoagulation Essential thrombocythemia COPD CHF Pulmonary hypertension Initially PUD Chronic pain Depression Other comorbidities Attestations Medical Necessity Statement*: Place in observation due to severe pain without improvement in right hip with greater trochanteric fracture, limiting repositioning, transfers, ambulation. Coding Level of Care Code Acute Catapult And Arresting Gear Officer for [facility] Fwd Exam Comprehensive Diagnoses Acute hip pain M25.559 Closed trochanteric fracture of hip S72.109A Hyperkalemia E87.5
[2022-02-10] MEDS: gabapentin 400 mg Capsule PO ×2 (19:02→21:39)
[2022-02-10] MEDS: oxyCODONE 5 mg IR Tab/Cap 15 MG PO (20:51)
[2022-02-10] MEDS: mirtazapine 30 mg Tablet 15 MG PO (21:39)
[2022-02-11] VITALS (12 sets, daily range): BP systolic 103–118; BP diastolic 64–73; PULSE 70–93; RESP 13–20; TEMP 36.1–36.9; O2SAT 90–97
[2022-02-11] MEDS: oxyCODONE 5 mg IR Tab/Cap 15 MG PO ×4 (03:29→22:14)
[2022-02-11 05:08] LABS: Anion Gap 13.3 (5-19); Blood Urea Nitrogen 25 mg/dL (8-23); Calcium 9.5 mg/dL (8.5-10.5); Carbon Dioxide 28 mmol/L (22-29); Chloride 103 mmol/L (98-107); Glucose 108 mg/dL (65-115); Osmolality Calculated 295 mOsm/kg (285-295); Potassium 4.3 mmol/L (3.5-5.1); Sodium 140 mmol/L (136-145)
[2022-02-11] MEDS: gabapentin 400 mg Capsule PO ×5 (05:49→22:12)
--- NOTE | 2022-02-11 08:35 | PM.CONSULT ---
Providers/Reason For Consult Consulting Physician/Specialty*: Neyda Castillo MD Reason for Consult*: Right hip pain and greater trochanteric fracture Requesting Physician: Dr. Rob Haynes Attending Physician: Daryl Parikh History of Present Illness History of Present Illness Yina Mata is a 71 year old female who was in her usual state of health when she tripped on a throw rug at her home. This caused her to fall onto her right hip. This injury occurred approximately 8 days ago. She states that she decided to come to the ER yesterday as it did not seem to be getting better. It was not however getting any worse. I was requested to give opinion as to appropriate treatment and also to see the patient in consultation. Upon my initial discussion with the patient, she notes that she has been having pain in the hip, and queries proceeding directly to total hip arthroplasty. I advised her that this would not be an appropriate plan as she would need to have her fracture healed first. Review of Systems Const: Denies: fever(s), chills, body aches or malaise Eyes: Denies: change in vision, eye discomfort or eye redness ENMT: Denies: throat pain, mouth pain, oral sores or ear or mastoid pain Card: Denies: chest pain, palpitations, edema, pre-syncope or dyspnea on exertion Resp: Denies: dyspnea, productive cough, non-productive cough, change in phlegm color or hemoptysis GI: Denies: abdominal pain, nausea, vomiting, diarrhea, constipation, hematochezia or melena : Denies: flank pain, dysuria, urinary frequency or hematuria Musc: Reports: joint pain (R hip); Denies: back pain, extremity pain, joint swelling or joint redness Skin/Breast: Denies: rash or new lesions Neuro: Reports: other (+R hip pain); Denies: headache(s), numbness in extremities, weakness in extremities, dizziness, confusion or seizure-like activity Psych: Reports: other (Normal mood) Endo: Denies: polyuria or polydipsia Fidel/Lymph: Denies: easy bruising, easy bleeding or tender lymph nodes All/Imm: Denies: urticaria or tongue swelling Medications/Allergies Home Medications Medication Instructions Recorded Confirmed Last Taken Type cholecalciferol (vitamin D3) 25 25 mcg PO DAILY 08/20/21 02/10/22 02/10/22 History mcg (1,000 unit) capsule magnesium carb,citrate,oxide 300 mg PO DAILY 08/20/21 02/10/22 02/10/22 History (Magnesium Complex) milk thistle seed extract 300 mg PO DAILY 08/20/21 02/10/22 02/10/22 History onogcdhsehwr-zsmckdbx-ndnssb tablet 1 tab PO DAILY tab 08/20/21 02/10/22 02/10/22 History vitamins A,C,I-niql-dzpjdc 14,320 1 cap PO BID 08/20/21 02/10/22 02/10/22 History unit-226 mg-200 unit capsule (PreserVision AREDS) hydroxyurea 500 mg capsule 500 mg PO .COMPLEX 90 Days #96 cap 11/05/21 02/10/22 02/08/22 Rx 500 mg oxycodone 15 mg tablet 15 mg PO QID PRN 30 Days #120 tab 11/05/21 02/10/22 Unknown Rx rivaroxaban 20 mg tablet (Xarelto) 20 mg PO DAILY 90 Days #90 tab 12/06/21 02/10/22 02/10/22 Rx tiotropium bromide 18 mcg capsule 1 cap INHALATION DAILY 30 Days #30 12/10/21 02/10/22 02/10/22 Rx with inhalation device (Spiriva inh with HandiHaler) omeprazole 20 mg capsule,delayed 20 mg PO DAILY #30 cap 01/15/22 02/10/22 02/10/22 Rx release acyclovir 800 mg tablet 800 mg PO TID PRN 02/10/22 02/10/22 Unknown History gabapentin 400 mg capsule 400 mg PO .5 TIMES DAILY 02/10/22 02/10/22 02/10/22 History mirtazapine 30 mg tablet 15 mg PO BEDTIME 02/10/22 02/10/22 02/09/22 History Allergies Allergy/AdvReac Type Severity Reaction Status Date / Time No Known Allergies Allergy Verified 01/28/22 10:12 Current Medications Generic Name Dose Route Start Last Admin Trade Name Freq PRN Reason Stop Dose Admin Gabapentin 400 mg 02/10/22 17:45 02/11/22 05:49 Gabapentin 400 Mg Capsule PO 400 mg 5XD KIMBERLY Administration Lidocaine 1 patch 02/10/22 21:00 02/10/22 20:52 Lidocaine 5% Patch TOPICAL 1 patch [id number] KIMBERLY Administration Mirtazapine 15 mg 02/10/22 21:00 02/10/22 21:39 Mirtazapine 30 Mg Tablet PO 15 mg BEDTIME KIMBERLY Administration Oxycodone HCl 15 mg 02/10/22 17:41 02/11/22 03:29 Oxycodone 5 Mg Ir Tab/Cap PO 15 mg QID PRN Administration pain Rivaroxaban 20 mg 02/10/22 18:00 02/10/22 19:03 Rivaroxaban 10 Mg Tablet PO Not Given SUPPER KIMBERLY Tiotropium [place] 18 mcg 02/11/22 09:00 02/11/22 08:23 Tiotropium 18 Mcg Mdi INHALATION 1 inhalation DAILY KIMBERLY Administration PFSH Acute PFSH: Medical History Chronic pain syndrome COPD (chronic obstructive pulmonary disease) Depression Dyslipidemia Essential thrombocythemia Former smoker Heart failure Hx of pulmonary embolus Lumbosacral spondylolysis Macular degeneration of both eyes Osteoarthritis Peptic ulcer disease Pulmonary HTN Scoliosis Surgical History History of ankle surgery History of total left hip replacement Hx of tonsillectomy Family History Father Alcoholic cirrhosis of liver Social History (Updated 02/10/22 @ 17:52 by Daryl Parikh MD) Smoking and tobacco status: current every day smoker (former tobacco smoker. current vape usage) e-cigarettes E-Cigarette Details: vaporizer device Alcohol intake: never Substance/Drug Use: never Lives independently: Yes Household members: none Marital status: / Current occupational status: retired Vitals/I&O/Wt Last Vital Signs Temp 97.5 F L 02/11/22 07:18 Pulse 78 02/11/22 08:26 Resp 18 02/11/22 08:25 BP 103/65 02/11/22 07:18 Pulse Ox 93 02/11/22 08:25 02/10/22 02/11/22 02/11/22 22:59 06:59 14:59 Intake Total 240 / 240 Output Total 1200 / 1200 Balance 240 / 240 -1200 / -960 Weight last 48 hrs Weight 139 lb 3.2 oz Weight 140 lb Physical Exam Const: COMMON NORMALS: no acute distress, average body habitus, patient oriented x3 and alert GENERAL APPEARANCE: cooperative and comfortable ORIENTATION/CONSCIOUSNESS: Yes awake HENMT: COMMON NORMALS: normocephalic and atraumatic HEAD & SCALP: normocephalic and atraumatic Eye: GENERAL EYE: appearance normal, both eyes and all related structures Chest: COMMONS NORMALS: normal inspection of the chest Resp: COMMON NORMALS: normal respiratory effort EFFORT & INSPECTION: Yes able to speak in complete sentences and Yes symmetric chest movement Extremity: RIGHT LOWER EXTREMITY: Yes hip joint Right hip: Yes inspection (No ecchymosis over the greater trochanter), Yes palpation (Tender), Yes ROM (Not evaluated due to fracture) and Yes neurovascular exam (Intact distally) Neuro: COMMON NORMALS: patient oriented x3 SENSORIUM/ORIENTATION: Yes alert Psych: COMMON NORMALS: mental status grossly normal APPEARANCE: Yes grossly normal ATTITUDE: Yes calm and Yes engaged ATTENTION/CONCENTRATION: Yes attention grossly intact Skin: COMMON NORMALS: no rashes or lesions noted GENERAL SKIN EXAM: no rashes or lesions noted Data : 02/10/22 15:15 02/11/22 04:29 Xray Ortho: My impression: Patient's right hip imaging demonstrates a comminuted greater trochanteric hip fracture with no obvious extension. There is no displacement. Other CT: My impression: CT scan of the right hip was obtained. I have personally reviewed these imaging studies. There is the previously noted comminuted greater trochanteric hip fracture with minimal to no displacement. I do have concern of possible extension into the intertrochanteric area and will recommend an MRI A&P Assessment and plan (1) Fracture of greater trochanter of right femur: On both x-ray and CT, the patient has an obvious greater trochanteric fracture with no displacement. There is significant comminution. She suffered this injury approximately 8 days ago in her home. She elected to come to the emergency department for further evaluation as she states the hip was not getting any better. She does note it was not getting any worse. Upon evaluation in the emergency department she was found to have a comminuted greater trochanteric fracture. On CT imaging there is question of a possible extension into the intertrochanteric area. For this reason, I have ordered an MRI. If the MRI is negative for extension into the intertrochanteric area, the patient may be discharged home with touchdown weightbearing. If there is extension into the intertrochanteric area, this would require open reduction internal fixation. I have discussed this with the hospitalist team. They will hold Eliquis in case we need to proceed with a surgical intervention. The patient notes that she might want to go straight to total hip arthroplasty, and I advised her that that is not appropriate treatment for this fracture. Status: Acute Qualifiers: Encounter type: initial encounter Fracture type: closed Fracture alignment: nondisplaced Qualified Code(s): S72.114A - Nondisplaced fracture of greater trochanter of right femur, initial encounter for closed fracture Consult Attestations Medical Necessity Statement: Ongoing right hip pain following a fall. 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
[2022-02-11] MEDS: pantoprazole DR 40 mg Tablet PO (08:38)
--- NOTE | 2022-02-11 09:03 | MR_ITS ---
WS: [id number] MRI RIGHT HIP without CONTRAST. COMPARISON: RIGHT hip radiograph 02/10/[address] 02/10/2022. Multiplanar, multisequence imaging is performed without contrast. There is a large amount of edema in the muscle surrounding the RIGHT hip including the gluteus medius , veronique and minimus. There is also increased fluid signal involving the distal psoas muscle. There is a soft tissue hematoma in the gluteus medius. Again noted is a mildly comminuted but nondisplaced fracture through the greater and lesser trochante rs. There is also edema extending through the intertrochanteric portion of the femur. There is low si gnal on the T1 sequences and mildly increased on the T2 sequence. After reviewing the CT I do believe there is very minimally and probably impacted fracture extending intertrochanteric. Intertrochanteri c is where the greatest amount of edema is and abnormal T1 signal. MR/MR hip RT wo con* [id number] IMPRESSION: 1. Abnormal signal extending intertrochanteric through the RIGHT hip. Also abn ormal signal in the subcapital region. I had the recent CT reformatted with thi nner cuts and I do believe there is a subcapital hip fracture also. 2. Nondisplaced fractures through the greater and lesser trochanters are uncha nged. 3. Large amount of edema in the soft tissues surrounding the hip. Notified Neyda Castillo MD at 02/11/2022 2:13 PM. Message was left with nursing in the office for Dr. Castillo.
--- NOTE | 2022-02-11 13:31 | P.PN_ITS ---
Subjective Subjective: Patient was seen this morning, she sitting up beside the bed, she is awaiting her MRI, tells me that the pain is well controlled, currently her pain is a 6 out of 10 she is waiting for her morphine Vitals/I&O/Wt Last Vital Signs Temp 98.5 F 02/11/22 11:30 Pulse 73 02/11/22 11:30 Resp 16 02/11/22 11:30 BP 111/67 02/11/22 11:30 Pulse Ox 91 02/11/22 11:30 02/10/22 02/11/22 02/11/22 22:59 06:59 14:59 Intake Total 240 / 240 Output Total 1200 / 1200 Balance 240 / 240 -1200 / -960 Weight last 48 hrs Weight 63.14 kg Weight 63.503 kg Physical Exam Const: COMMON NORMALS: no acute distress and patient oriented x3 Resp: COMMON NORMALS: normal respiratory effort, No retractions, No use of accessory muscles and clear to auscultation bilaterally AUSCULTATION: clear to auscultation bilaterally Cardio: COMMON NORMALS: regular rate, regular rhythm, S1 normal heart sound present and S2 normal heart sound present RATE: regular rate RHYTHM: regular rhythm HEART SOUNDS: S1 normal heart sound present and S2 normal heart sound present GI: COMMON NORMALS: Normal to inspection, nondistended, normoactive bowel sounds present, Soft to palpation and non-tender PALPATION: Yes Soft to palpation Extremity: COMMON NORMALS: no pedal edema Neuro: COMMON NORMALS: patient oriented x3 Psych: COMMON NORMALS: mental status grossly normal Data : 02/10/22 15:15 02/11/22 04:29 A&P Assessment and plan (1) Acute hip pain: Severe pain limiting repositioning, transfers, ambulation. Close greater trochanteric fracture of right hip after a mechanical fall. Pain control, add lidocaine patch, continue oxycodone, morphine for breakthrough, adjust depending on response. PT. Attempted mobilization with walker. Orthopedic assessment. Awaiting MRI to see if extends into intertrochanteric area Hold Xarelto just in case she needs surgical intervention Disposition planning depending on response. Status: Acute (2) Closed trochanteric fracture of hip: Pending additional orthopedic assessment. Prescription for now continue Xarelto. Status: Acute (3) Hyperkalemia: Resolved Status: Acute Plan History of PE: On chronic anticoagulation Essential thrombocythemia COPD CHF Pulmonary hypertension Initially PUD Chronic pain Depression Other comorbidities Attestations Medical Necessity Statement*: Patient requires hospitalization for hip pain Coding Level of Care Code Acute Data Acquisition Technician for [facility] Diagnoses Acute hip pain M25.559 Closed trochanteric fracture of hip S72.109A Hyperkalemia E87.5
[2022-02-11] MEDS: HYDROmorphone 1 mg/mL INJ 1 mL 0.4 MG IVP (15:00)
[2022-02-11] MEDS: hydroxyurea 500 mg Capsule 1000 MG PO (16:30)
--- NOTE | 2022-02-11 17:27 | PM.MISC ---
Miscellaneous Note Purpose of Documentation: Documentation for Surgery Note: Patient had MRI which demonstrated Intertrochanteric extension of her greater trochanteric fracture. There may also be a subcapital nondisplaced fracture. Plan is for ORIF intertrochanteric fracture right hip tomorrow. Due to rivaroxaban use, surgery will be in the afternoon to allow maximum time following her last dose. Further discussion of surgery will be had with the patient tomorrow.
--- NOTE | 2022-02-11 18:22 | PC.PT ---
PT evaluation on hold awaiting patient to have hip surgery. Will follow
[2022-02-11] MEDS: lidocaine 5% Patch 1 PATCH TOPICAL (22:12)
[2022-02-11] MEDS: mirtazapine 30 mg Tablet 15 MG PO (22:13)
[2022-02-12] VITALS (30 sets, daily range): BP systolic 86–156; BP diastolic 48–133; PULSE 66–95; RESP 16–22; TEMP 36.3–37; O2SAT 90–98
--- NOTE | 2022-02-12 | SCC_ITS ---
Procedure done: Internal fixation of right intertrochanteric hip fracture with associated subcapital hip fracture utilizing the Gaby gamma nail 122.5 seconds of fluoroscopic guidance, for a cumulative dose of 12.05 mGy, was provided to Dr. Castillo by the radiology department. C-arm images of the RIGHT hip were saved for the patient's permanent record. [facility]
--- NOTE | 2022-02-12 | XR_ITS ---
WS: [id number] C-ARM RADIOGRAPHS RIGHT HIP; 3 IMAGES HISTORY: injured right hip from fall COMPARISON: 02/10/2022 Intraoperative fixation of an intertrochanteric hip fracture. There is a gamma nail and a short intra medullary yaritza in good position. No displacement of the fracture. Normal alignment. XR/XR hip RT 2-3V wo/w pel* [id number] IMPRESSION: Intraoperative ORIF RIGHT intertrochanteric hip fracture.
[2022-02-12 05:25] LABS: Basophils # 0.1 10^3/uL (0.0-0.1); Eosinophils # 0.1 10^3/uL (0.0-0.8); Eosinophils % 1.3 %; Hematocrit 42.4 % (37.0-47.0); Hemoglobin 13.2 g/dL (11.5-15.3); Lymphocytes % 12.7 %; Mean Corpuscular HGB Conc 31.1 g/dL (30.0-36.0); Mean Corpuscular Hemoglobin 31.3 pg (28.0-34.0); Mean Corpuscular Volume 100.5 fl (81-99); Mean Platelet Volume 10.4 fL (7.4-10.4); Monocytes # 0.7 10^3/uL (0.2-0.9); Monocytes % 7.9 %; Neutrophils # 6.27 10^3/uL (1.8-7.7); Neutrophils % 76.7 %; Nucleated Red Blood Cells % 0 %; Platelet Count 404 10^3/cmm (130-400); Red Blood Count 4.22 10^6/uL (4.1-5.3); White Blood Count 8.2 10^3/uL (4.0-10.0)
[2022-02-12 05:50] LABS: Alanine Aminotransferase 6 U/L (0-33); Albumin Level 3.7 g/dL (3.5-5.2); Alkaline Phosphatase 115 IU/L (35-105); Anion Gap 15.1 (5-19); Aspartate Amino Transferase 9 U/L (0-32); Blood Urea Nitrogen 26 mg/dL (8-23); Calcium 9.6 mg/dL (8.5-10.5); Carbon Dioxide 23 mmol/L (22-29); Chloride 104 mmol/L (98-107); Globulin 2.2 g/dL (1.3-4.6); Glucose 105 mg/dL (65-115); Osmolality Calculated 291 mOsm/kg (285-295); Phosphorus 4.7 mg/dL (2.5-4.5); Potassium 4.1 mmol/L (3.5-5.1); Sodium 138 mmol/L (136-145); Total Bilirubin 0.3 mg/dL (0.15-1.2); Total Protein 5.9 g/dL (6.6-8.7)
[2022-02-12] MEDS: gabapentin 400 mg Capsule PO ×3 (05:57→21:48)
[2022-02-12] MEDS: oxyCODONE 5 mg IR Tab/Cap 15 MG PO ×3 (05:58→20:35)
[2022-02-12] MEDS: CELEcoxib 200 mg Capsule 400 MG PO (10:11)
[2022-02-12] MEDS: sodium chloride 0.9% 1,000 ML 30 ML IV (10:12)
--- NOTE | 2022-02-12 10:21 | ANES.PREANE2 ---
Pre-Anesthetic Assessment Height/Weight: Height 1.7 m Weight 63.14 kg Temp Pulse Resp BP Pulse Ox 97.6 F 71 18 104/67 93 02/12/22 04:00 02/12/22 08:18 02/12/22 08:17 02/12/22 07:25 02/12/22 08:17 Preop Diagnosis: Right intertrochanteric hip fracture Operation Date: 02/12/22 11:00 Proposed Procedures p Trochanteric Femoral Nail (short nail)(Right) - Neyda Castillo MD Familial anesthetic complications: None Was Beta Liane taken within 24 hours: N/A Was Clonidine taken within 24 hours: N/A Last intake: Intake Last Liquid Date 02/11/22 Last Liquid Time 23:30 Last Solid Date 02/11/22 Last Solid Time 17:30 Social Tobacco (Vapes) and No alcohol Exam alert, oriented x 3, clear to auscultation bilaterally and regular rate & rhythm Airway Submandibular: within normal limits Cervical ROM: within normal limits Mallampati: Class II Dentition: chipped Pulmonary Chronic Obstructive Pulmonary Disease CV/HEM Deep Vein Thrombosis DVT/PE--Xeralto (last taken on 02/09) GI Gastroesophageal Reflux Disease Anesthetic Plan ASA status: 2 Anesthesia: Regional (specify below) (SAB) Medications/Allergies Home Medications Medication Instructions Recorded Confirmed Last Taken Type cholecalciferol (vitamin D3) 25 25 mcg PO DAILY 08/20/21 02/10/22 02/10/22 History mcg (1,000 unit) capsule magnesium carb,citrate,oxide 300 mg PO DAILY 08/20/21 02/10/22 02/10/22 History (Magnesium Complex) milk thistle seed extract 300 mg PO DAILY 08/20/21 02/10/22 02/10/22 History bilqokdkeglr-eerpjqzk-irmfuw tablet 1 tab PO DAILY tab 08/20/21 02/10/22 02/10/22 History vitamins A,C,T-kigl-xnrpiq 14,320 1 cap PO BID 08/20/21 02/10/22 02/10/22 History unit-226 mg-200 unit capsule (PreserVision AREDS) hydroxyurea 500 mg capsule 500 mg PO .COMPLEX 90 Days #96 cap 11/05/21 02/10/22 02/08/22 Rx 500 mg oxycodone 15 mg tablet 15 mg PO QID PRN 30 Days #120 tab 02/07/22 05/15/22 Unknown Rx rivaroxaban 20 mg tablet (Xarelto) 20 mg PO DAILY 90 Days #90 tab 12/06/21 02/10/22 02/10/22 Rx tiotropium bromide 18 mcg capsule 1 cap INHALATION DAILY 30 Days #30 12/10/21 02/10/22 02/10/22 Rx with inhalation device (Spiriva inh with HandiHaler) omeprazole 20 mg capsule,delayed 20 mg PO DAILY #30 cap 01/15/22 02/10/22 02/10/22 Rx release acyclovir 800 mg tablet 800 mg PO TID PRN 02/10/22 02/10/22 Unknown History gabapentin 400 mg capsule 400 mg PO .5 TIMES DAILY 02/10/22 02/10/22 02/10/22 History mirtazapine 30 mg tablet 15 mg PO BEDTIME 02/10/22 02/10/22 02/09/22 History oxycodone 5 mg tablet 5 mg PO Q6H PRN 7 Days #28 tab 02/11/22 Unknown Rx Allergies Allergy/AdvReac Type Severity Reaction Status Date / Time No Known Allergies Allergy Verified 01/28/22 10:12 Current Medications Generic Name Dose Route Start Last Admin Trade Name Freq PRN Reason Stop Dose Admin Gabapentin 400 mg 02/10/22 17:45 02/12/22 09:21 Gabapentin 400 Mg Capsule PO Not Given 5XD KIMBERLY Hydromorphone HCl 0.4 mg 02/11/22 14:21 02/11/22 15:00 Hydromorphone 1 Mg/Ml Inj 1 Ml IVP 0.4 mg Q4H PRN Administration PAIN Hydroxyurea 1,000 mg 02/11/22 14:00 02/11/22 16:30 Hydroxyurea 500 Mg Capsule PO 1,000 mg QMWF KIMBERLY Administration Sodium Chloride 1,000 mls @ 30 mls/hr 02/12/22 10:00 02/12/22 10:12 Sodium Chloride 0.9% IV 02/13/22 09:59 30 mls/hr .Q24H KIMBERLY Administration Lidocaine 1 patch 02/10/22 21:00 02/11/22 22:12 Lidocaine 5% Patch TOPICAL 1 patch [id number] KIMBERLY Administration Mirtazapine 15 mg 02/10/22 21:00 02/11/22 22:13 Mirtazapine 30 Mg Tablet PO 15 mg BEDTIME KIMBERLY Administration Oxycodone HCl 15 mg 02/10/22 17:41 02/12/22 05:58 Oxycodone 5 Mg Ir Tab/Cap PO 15 mg QID PRN Administration pain Pantoprazole Sodium 40 mg 02/11/22 09:00 02/12/22 09:[address] 40 Mg Tablet PO Not Given DAILY KIMBERLY Rivaroxaban 20 mg 02/10/22 18:00 02/10/22 19:03 Rivaroxaban 10 Mg Tablet PO Not Given SUPPER KIMBERLY Tiotropium [place] 18 mcg 02/11/22 09:00 02/12/22 08:11 Tiotropium 18 Mcg Mdi INHALATION 1 inhalation DAILY KIMBERLY Administration [facility] Anesthesia Medical History Chronic pain syndrome COPD (chronic obstructive pulmonary disease) Depression Dyslipidemia Essential thrombocythemia Former smoker Heart failure Hx of pulmonary embolus Lumbosacral spondylolysis Macular degeneration of both eyes Osteoarthritis Peptic ulcer disease Pulmonary HTN Scoliosis Surgical History History of ankle surgery History of total left hip replacement Hx of tonsillectomy Family History Father Alcoholic cirrhosis of liver Social History (Updated 02/10/22 @ 17:52 by Daryl Parikh MD) Smoking and tobacco status: current every day smoker (former tobacco smoker. current vape usage) e-cigarettes E-Cigarette Details: vaporizer device Alcohol intake: never Substance/Drug Use: never Lives independently: Yes Household members: none Marital status: / Current occupational status: retired Data Anesthesia : 02/12/22 04:59 02/12/22 04:59 Short CBC 02/10/22 02/12/22 Range/Units 15:15 04:59 WBC 8.4 8.2 (4.0-10.0) 10^3/uL Hgb 13.6 13.2 (11.5-15.3) g/dL Hct 43.1 42.4 (37.0-47.0) % MCV 99.8 H 100.5 H (81-99) fl Plt Count 565 H 404 H (130-400) 10^3/cmm Neut % (Auto) 72.6 76.7 % Neut # (Auto) 6.08 6.27 (1.8-7.7) 10^3/uL BMP 02/10/22 02/11/22 02/12/22 15:15 04:29 04:59 Sodium 139 140 138 Potassium 5.6 H 4.3 4.1 Chloride 102 103 104 Carbon Dioxide 26 28 23 BUN 26 H 25 H 26 H Creatinine 0.7 0.8 0.7 Glucose 94 108 105 Calcium 9.6 9.5 9.6 Liver Function 02/12/22 Range/Units 04:59 Total Bilirubin 0.3 (0.15-1.2) mg/dL AST 9 (0-32) U/L ALT 6 (0-33) U/L Alkaline Phosphatase 115 H (35-105) IU/L Albumin 3.7 (3.5-5.2) g/dL Coags 02/10/22 15:25 PT 14.50 INR 1.10 APTT 33.3 Cardiac Studies: No Data to Display
[2022-02-12] MEDS: acetaminophen 1,000 MG/100 ML PIGGYBACK 400 MG IV (10:32)
[2022-02-12] MEDS: vancomycin 1,000 MG in sodium chloride 0.9% 250 ML 250 MG IV (11:04)
[2022-02-12] MEDS: ceFAZolin 1,000 mg SDV 1000 MG (12:43)
[2022-02-12] MEDS: ceFAZolin 1,000 mg SDV 1000 MG IRRIGATION (13:30)
--- NOTE | 2022-02-12 14:51 | PM.DCS ---
Discharge Providers Date of Admission: 02/12/22 08:53 Date of Discharge: February 12, 2022 Attending Provider at Admission: Daryl Parikh Attending Provider at Discharge: Rogelio Castaneda MD Diagnoses at Discharge Discharge Diagnosis (1) Acute hip pain: Status: Acute (2) Closed trochanteric fracture of hip: Status: Acute (3) Hyperkalemia: Status: Acute Reason for Visit Reason for Visit: Injured right hip from fall Hospital Course Hospital Course This is a 71-year-old female with a past medical history of essential thrombocythemia, history of pulmonary embolus on Xarelto, osteoarthritis, depression, dyslipidemia who presents to [facility] after falling Patient was found to have a intertrochanteric extension of her greater trochanteric fracture was on Xarelto which was held, underwent open reduction internal fixation, discharged on 5 mg twice daily for breakthrough pain in addition to her home 15 mg 4 times daily as needed, discussed respiratory depression, risk of overdose, advised to use oxycodone sparingly, she voices any, all questions answered, discharged on Xarelto for DVT prophylaxis, follow-up with Dr. aGrcia as outpatient Physical Exam Const: COMMON NORMALS: no acute distress and patient oriented x3 Resp: COMMON NORMALS: normal respiratory effort, No retractions, No use of accessory muscles and clear to auscultation bilaterally AUSCULTATION: clear to auscultation bilaterally Cardio: COMMON NORMALS: regular rate, regular rhythm, S1 normal heart sound present and S2 normal heart sound present RATE: regular rate RHYTHM: regular rhythm HEART SOUNDS: S1 normal heart sound present and S2 normal heart sound present GI: COMMON NORMALS: Normal to inspection, nondistended, normoactive bowel sounds present, Soft to palpation, non-tender and No hepatosplenomegaly present PALPATION: Yes Soft to palpation and Yes No hepatosplenomegaly present Extremity: COMMON NORMALS: no pedal edema Neuro: COMMON NORMALS: patient oriented x3 Psych: COMMON NORMALS: mental status grossly normal Urinary Catheter Management: Melendez: Cath Placed During This Visit: yes Urinary Catheter Date of Insertion: 02/12/22 Urinary Catheter Time of Insertion: 13:00 Discharge Data Studies Completed and Pending Completed Studies During Hospitalization Category Date Time Status CT hip RT wo con* [id number] Urgent Cat Scan 02/10/22 13:48 Completed XR hip RT 2-3V wo/w pel* [id number] Stat Exams 02/10/22 12:35 Completed MR hip RT wo con* [id number] Urgent MRI 02/11/22 09:03 Completed Pending at discharge Category Date Time Status C-arm Fluoroscopy [id number] Routine Exams 02/12/22 09:56 Taken XR hip RT 2-3V wo/w pel* [id number] Routine Exams 02/12/22 Taken Complete Blood Count w/Auto AM LABS Lab 02/13/22 04:00 Ordered Complete Blood Count w/Auto AM LABS Lab 02/14/22 04:00 Ordered Comprehensive Metabolic Panel AM LABS Lab 02/13/22 04:00 Ordered Comprehensive Metabolic Panel AM LABS Lab 02/14/22 04:00 Ordered Magnesium AM LABS Lab 02/13/22 04:00 Ordered Magnesium AM LABS Lab 02/14/22 04:00 Ordered Phosphorus AM LABS Lab 02/13/22 04:00 Ordered Phosphorus AM LABS Lab 02/14/22 04:00 Ordered Radiology Impressions Hip CT 02/10/22 13:48 IMPRESSION: Nondisplaced right femoral greater trochanter fracture. Hip MRI 02/11/22 09:03 IMPRESSION: 1. Abnormal signal extending intertrochanteric through the RIGHT hip. Also abnormal signal in the subcapital region. I had the recent CT reformatted with thinner cuts and I do believe there is a subcapital hip fracture also. 2. Nondisplaced fractures through the greater and lesser trochanters are unchanged. 3. Large amount of edema in the soft tissues surrounding the hip. Notified Neyda Castillo MD at 02/11/2022 2:13 PM. Message was left with nursing in the office for Dr. Castillo. Laboratory Results WBC 8.2 10^3/uL (4.0-10.0) 02/12/22 04:59 RBC 4.22 10^6/uL (4.1-5.3) 02/12/22 04:59 Hgb 13.2 g/dL (11.5-15.3) 02/12/22 04:59 Hct 42.4 % (37.0-47.0) 02/12/22 04:59 MCV 100.5 fl (81-99) H 02/12/22 04:59 MCH 31.3 pg (28.0-34.0) 02/12/22 04:59 MCHC 31.1 g/dL (30.0-36.0) 02/12/22 04:59 RDW 16.0 % (12.1-15.1) H 02/12/22 04:59 Plt Count 404 10^3/cmm (130-400) H 02/12/22 04:59 MPV 10.4 fL (7.4-10.4) 02/12/22 04:59 Neut % (Auto) 76.7 % 02/12/22 04:59 Lymph % (Auto) 12.7 % 02/12/22 04:59 [place] % (Auto) 7.9 % 02/12/22 04:59 Eos % (Auto) 1.3 % 02/12/22 04:59 Baso % (Auto) 1.0 % 02/12/22 04:59 Neut # (Auto) 6.27 10^3/uL (1.8-7.7) 02/12/22 04:59 Lymph # (Auto) 1.0 10^3/uL (0.8-4.8) 02/12/22 04:59 [place] # (Auto) 0.7 10^3/uL (0.2-0.9) 02/12/22 04:59 Eos # (Auto) 0.1 10^3/uL (0.0-0.8) 02/12/22 04:59 Baso # (Auto) 0.1 10^3/uL (0.0-0.1) 02/12/22 04:59 Nucleated RBC % (auto) 0 % 02/12/22 04:59 Nucleated RBCs # 0.0 /100WBC 02/12/22 04:59 PT 14.50 SECONDS (12.1-14.9) 02/10/22 15:25 INR 1.10 (0.8-1.2) 02/10/22 15:25 APTT 33.3 SECONDS (23.9-36.7) 02/10/22 15:25 Sodium 138 mmol/L (136-145) 02/12/22 04:59 Potassium 4.1 mmol/L (3.5-5.1) 02/12/22 04:59 Chloride 104 mmol/L (98-107) 02/12/22 04:59 Carbon Dioxide 23 mmol/L (22-29) 02/12/22 04:59 Anion Gap 15.1 (5-19) 02/12/22 04:59 BUN 26 mg/dL (8-23) H 02/12/22 04:59 Creatinine 0.7 mg/dL (0.5-0.9) 02/12/22 04:59 GFR Calculation Not Reportable 02/12/22 04:59 Glucose 105 mg/dL (65-115) 02/12/22 04:59 Calculated Osmolality 291 mOsm/kg (285-295) 02/12/22 04:59 Calcium 9.6 mg/dL (8.5-10.5) 02/12/22 04:59 Phosphorus 4.7 mg/dL (2.5-4.5) H 02/12/22 04:59 Magnesium 2.0 mg/dL (1.7-2.3) 02/12/22 04:59 Total Bilirubin 0.3 mg/dL (0.15-1.2) 02/12/22 04:59 AST 9 U/L (0-32) 02/12/22 04:59 ALT 6 U/L (0-33) 02/12/22 04:59 Alkaline Phosphatase 115 IU/L (35-105) H 02/12/22 04:59 Total Protein 5.9 g/dL (6.6-8.7) L 02/12/22 04:59 Albumin 3.7 g/dL (3.5-5.2) 02/12/22 04:59 Globulin 2.2 g/dL (1.3-4.6) 02/12/22 04:59 Vitals Last Vital Signs Temp 98.6 F 02/12/22 10:27 Pulse 77 02/12/22 10:27 Resp 18 02/12/22 10:27 BP 112/73 02/12/22 10:27 Pulse Ox 94 02/12/22 10:27 Discharge Plan Discharge Patient Disposition: Home Condition: Stable Prescriptions: New oxycodone 5 mg tablet 5 mg PO BID PRN (Reason: pain) 7 Days Qty: 14 0RF Continued ggmnfncsdxjc-fchfomfi-[id number] Tablet 1 tab PO DAILY 0RF Magnesium Complex 300 mg magnesium tablet 300 mg PO DAILY 0RF cholecalciferol (vitamin D3) 25 mcg (1,000 unit) capsule 25 mcg PO DAILY 0RF milk thistle seed extract 300 mg PO DAILY 0RF PreserVision AREDS [id number] jsut-zz-[id number] capsule 1 cap PO BID 0RF hydroxyurea 500 mg capsule 500 mg PO .COMPLEX 90 Days Qty: 96 0RF Rx Instructions: 500 mg PO 2 caps on Mon, Weds, Fri 1 caps on Tu, Thurs None on Fri and Friday oxycodone 15 mg tablet 15 mg PO QID PRN (Reason: pain) 30 Days Qty: 120 0RF Rx Instructions: Do not fill before 11/25/2021 Xarelto 20 mg tablet 20 mg PO DAILY 90 Days Qty: 90 1RF Rx Instructions: must administer with evening meal Spiriva with HandiHaler 18 mcg capsule, w/inhalation device 1 cap inhalation DAILY 30 Days Qty: 30 2RF Rx Instructions: puncture 1 cap using device; one dose = 2 inhalations 340B omeprazole 20 mg capsule,delayed release(DR/EC) 20 mg PO DAILY Qty: 30 2RF gabapentin 400 mg capsule 400 mg PO .5 TIMES DAILY 0RF acyclovir 800 mg tablet 800 mg PO TID PRN (Reason: Cold Sores) 0RF mirtazapine 30 mg tablet 15 mg PO BEDTIME 0RF Discharge Orders: Discharge Order (Routine); Ordered 02/13/22 Ordered By: Rogelio Castaneda Referrals: [facility] ([facility]) [Outside] Neyda Castillo MD [Physician] - 2 weeks Discharge Diet: Advance as tolerated Discharge Activity: Increase activity as tolerated, Limit activity as instructed, Use walker/crutches as instructed and As per PT/OT instructions Patient Instructions: Opioid Safety Activity Restrictions/Additional Instructions: You may be weightbearing as tolerated on your right leg. Please use crutches or a walker as per physical therapy instruction. Range of motion and gait training per physical therapy. Please keep dressing in place until it peels off on its own. Follow-up with me, Dr. Castillo, in approximately 2 weeks. -Please use 5 mg oxycodone sparingly for pain, use for breakthrough pain, in addition to your home oxycodone 15 mg, do not drive or operate heavy machinery or drink while taking medication Discharge Attestations Time Spent in Discharge Care*: less than 30 min Quality Metrics Clinical Quality Measures [ No reported AMI, CVA or VTE this stay] Coding Level of Care Code Acute Chg FW DC note Exam Detailed Diagnoses Acute hip pain M25.559 Closed trochanteric fracture of hip S72.109A Hyperkalemia E87.5
[2022-02-12] MEDS: fentaNYL 50 mcg/mL INJ 2mL IVP ×2 (14:52→15:15)
--- NOTE | 2022-02-12 15:54 | PM.OP ---
Operative Report Date of procedure: February 12, 2022 Pre-op diagnosis: Right intertrochanteric hip fracture with associated subcapital hip fracture Post-op diagnosis: Right intertrochanteric hip fracture with associated subcapital hip fracture Procedure done: Internal fixation of right intertrochanteric hip fracture with associated subcapital hip fracture utilizing the Gaby gamma nail Implants: The Gaby gamma nail system with a size 11 mm x 180 mm x 125 degree gamma 3 trochanteric nail, a 10.5 mm x 90 mm lag screw into the femoral head, and a 5 mm x 32.5 mm distal locking screw Pathology: none sent Surgeon: Neyda Castillo Medical Imaging Technologist: None Anesthesia: General (Per LMA, ASA 3) Estimated blood loss (mL): 50 IV fluids (mL): 800 Urine output (mL): 300 (Melendez removed at end of case) Complications: None Condition: stable Disposition: PACU (Then to floor for postoperative rehabilitation and pain management) Brief History: Yina Mata is a 71 year old female who was in her usual state of health when she tripped on a throw rug at her home.? This caused her to fall onto her right hip.? This injury occurred approximately 8 days ago.? She states that she decided to come to the ER yesterday as it did not seem to be getting better.? It was not however getting any worse.? I was requested to give opinion as to appropriate treatment and also to see the patient in consultation.? Upon my initial discussion with the patient, she notes that she has been having pain in the hip, and queries proceeding directly to total hip arthroplasty.? I advised her that this would not be an appropriate plan as she would need to have her fracture healed first. Procedure: Patient is brought to the operating theater. After undergoing adequate general anesthesia with LMA, the patient was transferred to the fracture table, positioned on the table and fluoroscopic guidance obtained throughout the surgical procedure. Prior to the commencement of the surgical procedure, a surgical pause was performed. At the time of the surgical pause, we confirmed the site and side of surgery as well as preoperative surgical markings and appropriate and timely administration of IV antibiotics, Ancef 2 g. Availability of equipment was also confirmed. Fluoroscopy was used to confirm the fracture was appropriately reduced in both AP and lateral planes. An incision was then made slightly above the greater trochanter to allow access to the greater trochanter. An awl was used to enter the greater trochanter and a guidewire was subsequently placed. Once the guidewire was confirmed to be in appropriate position in AP and lateral planes, reaming was accomplished over this to allow for the proximal diameter of the nail. Guidewire was then removed. An 11 mm x 180 mm x 125 degree gamma 3 trochanteric nail was placed into appropriate position with positioning being confirmed in AP and lateral planes on the x-ray. It passed without difficulty. Guidewire was then passed through the jigging system into the femoral head. We wanted to be center or slightly inferior and posterior to center. Guidewire was placed into appropriate position. Once the guidewire was in appropriate position and this position was confirmed by x-ray. This was then measured and we chose a 90 mm lag screw. We reamed to allow for the lag screw to be placed. The 90 mm lag screw was then passed into the femoral head through the trochanteric nail. This was passed uneventfully and again position was confirmed in AP and lateral planes. Compression was obtained under fluoroscopic guidance. The set screw was then placed in position, tightened completely, and subsequently backed off one-eighth turn. The construct was left in position and attention was directed distally. Cannulas were again used to determine appropriate placement for the distal screw. This was placed in position without difficulty. It was measured off of the drill. The appropriate length screw was then obtained and placed in position without difficulty. Once the screw was in position, we confirmed appropriate placement of the components, and we removed the jigging system. Attention was then directed to closure. The hip was copiously irrigated with normal saline with antibiotics. Following this it was dried and closed. Tensor fascia chase was closed proximally with 0 Vicryl in an interrupted fashion. Subcutaneous tissues were closed with 2-0 Monocryl, and the skin was closed with a continuous 3-0 Monocryl subcuticular stitch. This was then covered with Dermabond, Steri-Strips, and OpSite's. The patient was removed from the fracture table and returned to recovery in satisfactory condition. The patient will be discharged to the floor for postoperative rehabilitation and pain management. There were no specimens obtained. Related Problem List Diagnoses (1) Closed intertrochanteric fracture of right hip: (2) Closed subcapital fracture of right femur:
--- NOTE | 2022-02-12 16:32 | ANE.PACU2 ---
Inpatient post-anesthesia follow up: Airway intact: Yes Vital signs: Temperature 97.4 F Pulse Rate 80 Respiratory Rate 18 Blood Pressure 117/66 Pulse Oximetry 98 Oxygen Delivery Me thod Nasal Cannula Oxygen Flow Rate 3 Fraction of Inspir ed Oxygen Hydration adequate: Yes Nausea and vomiting: No Pain level: 3 Mental status: Baseline
[2022-02-12] MEDS: CELEcoxib 200 mg Capsule PO (17:17)
[2022-02-12] MEDS: rivaroxaban 10 mg Tablet 20 MG PO (17:17)
--- NOTE | 2022-02-12 18:50 | P.PN_ITS ---
Subjective Subjective: Patient was seen this morning, she has multiple questions about her surgery, her pain is well controlled Vitals/I&O/Wt Last Vital Signs Temp 98.1 F 02/12/22 16:15 Pulse 77 02/12/22 16:44 Resp 20 H 02/12/22 16:44 BP 115/74 02/12/22 16:15 Pulse Ox 96 02/12/22 16:44 02/12/22 02/12/22 02/12/22 06:59 14:59 22:59 Intake Total 700 / 700 150 / 850 Output Total 300 / 2240 350 / 350 300 / 650 Balance -300 / -1480 350 / 350 -150 / 200 Physical Exam Const: COMMON NORMALS: no acute distress and patient oriented x3 Resp: COMMON NORMALS: normal respiratory effort, No retractions, No use of accessory muscles and clear to auscultation bilaterally AUSCULTATION: clear to auscultation bilaterally Cardio: COMMON NORMALS: regular rate, regular rhythm, S1 normal heart sound present and S2 normal heart sound present RATE: regular rate RHYTHM: regular rhythm HEART SOUNDS: S1 normal heart sound present and S2 normal heart sound present GI: COMMON NORMALS: Normal to inspection, nondistended, normoactive bowel sounds present and Soft to palpation PALPATION: Yes Soft to palpation Extremity: COMMON NORMALS: no pedal edema Neuro: COMMON NORMALS: patient oriented x3 Psych: COMMON NORMALS: mental status grossly normal Urinary Catheter Management: Melendez: Cath Placed During This Visit: yes, but has since been removed by the nurse Reason for Continuing Indwelling Catheter: Decision to DC Catheter Urinary Catheter Date of Insertion: 02/12/22 Urinary Catheter Time of Insertion: 13:00 Date Urinary Catheter Removed: 02/12/22 Time Urinary Catheter Discontinued: 15:00 Data : 02/12/22 04:59 02/12/22 04:59 A&P Assessment and plan (1) Acute hip pain: Severe pain limiting repositioning, transfers, ambulation. Close greater trochanteric fracture of right hip after a mechanical fall. Pain control, add lidocaine patch, continue oxycodone, morphine for breakthrough, adjust depending on response. PT. Attempted mobilization with walker. Orthopedic assessment. MRI shows extension to the intertrochanteric area Resume Xarelto Undergoing surgery today Status: Acute (2) Closed trochanteric fracture of hip: Pending additional orthopedic assessment. Prescription for now continue Xarelto. Status: Acute (3) Hyperkalemia: Resolved Status: Acute Plan History of PE: On chronic anticoagulation Essential thrombocythemia COPD CHF Pulmonary hypertension Initially PUD Chronic pain Depression Other comorbidities Attestations Medical Necessity Statement*: Patient requires right hip surgery Coding Level of Care Code Acute Electronic Console Display Operator for Davon Chavez Diagnoses Acute hip pain M25.559 Closed trochanteric fracture of hip S72.109A Hyperkalemia E87.5
[2022-02-12] MEDS: acetaminophen 325 mg Tablet 650 MG PO (19:26)
[2022-02-12] MEDS: mirtazapine 30 mg Tablet 15 MG PO (21:48)
[2022-02-13] VITALS (8 sets, daily range): BP systolic 85–96; BP diastolic 48–62; PULSE 75–82; RESP 16–18; TEMP 36.4–36.7; O2SAT 92–99
[2022-02-13] MEDS: oxyCODONE 5 mg IR Tab/Cap 15 MG PO ×2 (02:21→08:44)
[2022-02-13] MEDS: gabapentin 400 mg Capsule PO ×2 (05:07→09:42)
[2022-02-13] MEDS: acetaminophen 325 mg Tablet 650 MG PO (05:13)
[2022-02-13 06:10] LABS: Basophils # 0.1 10^3/uL (0.0-0.1); Eosinophils # 0.1 10^3/uL (0.0-0.8); Eosinophils % 0.5 %; Hematocrit 41.1 % (37.0-47.0); Hemoglobin 12.7 g/dL (11.5-15.3); Lymphocytes # 0.8 10^3/uL (0.8-4.8); Lymphocytes % 7.9 %; Mean Corpuscular HGB Conc 30.9 g/dL (30.0-36.0); Mean Corpuscular Hemoglobin 31.4 pg (28.0-34.0); Mean Corpuscular Volume 101.5 fl (81-99); Mean Platelet Volume 10.2 fL (7.4-10.4); Monocytes # 0.8 10^3/uL (0.2-0.9); Monocytes % 7.3 %; Neutrophils # 8.45 10^3/uL (1.8-7.7); Neutrophils % 82.7 %; Nucleated Red Blood Cells % 0 %; Platelet Count 477 10^3/cmm (130-400); Red Blood Count 4.05 10^6/uL (4.1-5.3); Red Cell Distribution Width 16.2 % (12.1-15.1); White Blood Count 10.2 10^3/uL (4.0-10.0)
[2022-02-13 06:24] LABS: Alanine Aminotransferase 7 U/L (0-33); Alkaline Phosphatase 126 IU/L (35-105); Anion Gap 16.7 (5-19); Aspartate Amino Transferase 13 U/L (0-32); Blood Urea Nitrogen 24 mg/dL (8-23); Calcium 8.5 mg/dL (8.5-10.5); Carbon Dioxide 24 mmol/L (22-29); Chloride 103 mmol/L (98-107); Globulin 1.7 g/dL (1.3-4.6); Glucose 120 mg/dL (65-115); Magnesium 1.8 mg/dL (1.7-2.3); Osmolality Calculated 293 mOsm/kg (285-295); Phosphorus 4.4 mg/dL (2.5-4.5); Potassium 4.7 mmol/L (3.5-5.1); Sodium 139 mmol/L (136-145); Total Bilirubin 0.4 mg/dL (0.15-1.2); Total Protein 5.7 g/dL (6.6-8.7)
[2022-02-13] MEDS: aspirin 325 mg EC Tablet PO (08:39)
[2022-02-13] MEDS: CELEcoxib 200 mg Capsule PO (08:40)
[2022-02-13] MEDS: pantoprazole DR 40 mg Tablet PO (08:40)
[2022-02-13] MEDS: oxyCODONE 5 mg IR Tab/Cap PO (09:29)
--- NOTE | 2022-02-13 10:53 | P.PN_ITS ---
Subjective Subjective: Patient is seen and evaluated this morning, and she is in great spirits doing well. She has minimal complaints of pain. She feels ready for discharge to home at this point in time. Medications: Reviewed: Yes Vitals/I&O/Wt Last Vital Signs Temp 97.8 F 02/13/22 07:35 Pulse 82 02/13/22 07:38 Resp 18 02/13/22 09:29 BP 94/57 02/13/22 07:35 Pulse Ox 92 02/13/22 07:38 02/12/22 02/13/22 02/13/22 22:59 06:59 14:59 Intake Total 450 / 1150 300 / 1450 Output Total 300 / 650 750 / 1400 Balance 150 / 500 -450 / 50 Physical Exam Const: COMMON NORMALS: no acute distress, average body habitus, patient oriented x3 and alert GENERAL APPEARANCE: cooperative and comfortable ORIENTATION/CONSCIOUSNESS: Yes awake HENMT: COMMON NORMALS: normocephalic and atraumatic HEAD & SCALP: normocephalic and atraumatic Eye: GENERAL EYE: appearance normal, both eyes and all related structures Chest: COMMONS NORMALS: normal inspection of the chest Resp: COMMON NORMALS: normal respiratory effort EFFORT & INSPECTION: Yes able to speak in complete sentences and Yes symmetric chest movement Extremity: RIGHT LOWER EXTREMITY: Yes hip joint (Dressing is intact. There is no drainage.) Right hip: Yes inspection (No swelling or significant ecchymosis.), Yes palpation (Minimal tenderness.), Yes ROM (Not evaluated.) and Yes neurovascular exam (Intact distally.) Neuro: COMMON NORMALS: patient oriented x3 SENSORIUM/ORIENTATION: Yes alert Psych: COMMON NORMALS: mental status grossly normal APPEARANCE: Yes grossly normal ATTITUDE: Yes calm and Yes engaged ATTENTION/CONCENTRATION: Yes attention grossly intact Skin: COMMON NORMALS: no rashes or lesions noted GENERAL SKIN EXAM: no rashes or lesions noted Urinary Catheter Management: Melendez: Cath Placed During This Visit: yes, but has since been removed by the nurse Reason for Continuing Indwelling Catheter: Decision to DC Catheter Urinary Catheter Date of Insertion: 02/12/22 Urinary Catheter Time of Insertion: 13:00 Date Urinary Catheter Removed: 02/12/22 Time Urinary Catheter Discontinued: 15:00 Data : 02/13/22 05:36 02/13/22 05:36 A&P Assessment and plan (1) Closed intertrochanteric fracture of right hip: Patient is postop day 1 following open reduction internal fixation of her right intertrochanteric hip fracture with associated subcapital fracture as well. She tolerated the procedure nicely, and today, she is not complaining of significant pain and is ready for discharge to home. She is neurologically intact with no evidence of DVT. Dressings are dry and intact with no evidence of drainage. Discharge instructions are discussed with her. She will be weightbearing as tolerated. She will follow-up with me in approximately 2 weeks. Status: Acute Qualifiers: Encounter type: initial encounter Fracture alignment: nondisplaced Qualified Code(s): S72.144A - Nondisplaced intertrochanteric fracture of right femur, initial encounter for closed fracture (2) Closed subcapital fracture of right femur: Status: Acute Qualifiers: Encounter type: initial encounter Qualified Code(s): S72.011A - Unspecified intracapsular fracture of right femur, initial encounter for closed fracture Attestations Medical Necessity Statement*: Inpatient hospitalization required secondary to right hip fracture. Coding Level of Care Code Acute Line Construction Engineer for Davon Chavez Diagnoses Closed intertrochanteric fracture of right hip S72.144A Encounter type: initial encounter Fracture alignment: nondisplaced Closed subcapital fracture of right femur S72.011A Encounter type: initial encounter
--- NOTE | 2022-02-13 10:59 | PC.CHAP ---
Pastoral Care Encounter/Spiritual Assessment Type of Contact [] Declined boiler water tester visit [] Patient/Family/Request visit [] Outpatient visit [] Follow-up visit [] Physician referral [] Code/Alert [x] Routine visit [] Staff referral [] Actively dying [] Patient sleeping [] Family support [] [] Out of room [] Palliative care [] [] Receiving care in room [] Pre-surgical visit [] Trauma [] Long length of stay [] ICU visit [] Other: Relational/Emotional Strength [x] Patient feels connected with others/family/visitors/staff [] Distress [] Loneliness/isolation [] Abandonment Spirituality of Patient [x] Person of Nidhi [] Attends Sikh of their Nidhi [] Believes in Prayer [] Reads Bible or Zoroastrian materials [] There are Spiritual issues to be addressed Print Line Inspector Interventions [x] Prayer [x] Active listening [] Non-anxious presence [] Spiritual/emotional support [] Crisis/trauma care [] Spiritual counseling [] Bereavement support [] Provided bereavement packet [] Provided Bible/devotional materials [] Provided toy/stuffed animal, coloring book to patient or family member [] Provided Communion [] Anointing/Burr [] Salvation [x] Completed spiritual assessment [] Other: Impact on Illness or Injury [] Angry [] Fearful [] Anxious [] Often cries [] Exhaustion [] Unable to work [] Unable to attend sabianist [] Unable to walk/stand [] Unable to read [] Unable to drive [] Unable to eat/drink [] Unable to sleep [] Unable to be with family [] Patient intubated [] Other: Summary Time spent with patient 10 min
== END 2022-02-13 14:49 | disposition home health service (06) | DRG 481 ==
LOC: ER 15:08 → MEDSURG 15:52
PROVIDERS: Specialist; Admitting Provider Internal Medicine; Emergency Provider Emergency Medicine; Visit Provider Family Medicine
PROC: 0QH606Z Insertion of Intramedullary Internal Fixation Device into Right Upper Femur, Open Approach (ICD-10-PCS; CPT 27245; principal; 2022-02-12 11:00)
DX: S72.144A Nondisplaced intertrochanteric fracture of right femur, initial encounter for closed fracture (principal); D69.3 Immune thrombocytopenic purpura; W01.0XXA Fall on same level from slipping, tripping and stumbling without subsequent striking against object, initial encounter; Z86.711 Personal history of pulmonary embolism; Z79.01 Long term (current) use of anticoagulants; F32.9 Major depressive disorder, single episode, unspecified; E78.5 Hyperlipidemia, unspecified; J44.9 Chronic obstructive pulmonary disease, unspecified; G89.4 Chronic pain syndrome; F17.290 Nicotine dependence, other tobacco product, uncomplicated; M47.817 Spondylosis without myelopathy or radiculopathy, lumbosacral region; I27.20 Pulmonary hypertension, unspecified; Z96.642 Presence of left artificial hip joint; M19.90 Unspecified osteoarthritis, unspecified site; E87.5 Hyperkalemia; Z79.51 Long term (current) use of inhaled steroids; Z79.891 Long term (current) use of opiate analgesic
CPT/HCPCS: 36415; 51702; 73502; 73700; 73721; 76000; 80048; 80053; 83735; 84100; 85025; 85610; 85730; 93005; 94640; 96372; 96374; 97110; 97116; 97161; 97165; 97530; 99285; C1713; G0378; J0690; J1100; J1170; J2270; J2405; J2704; J3010; J3370; J7030; J7050; J8999

== ENCOUNTER → 2022-02-27 10:38 | Outpatient (BNVA) | payer MEDICARE, OTHER, SELFPAY | PROVIDERS: Visit Provider Specialist | DX: S72.144A Nondisplaced intertrochanteric fracture of right femur, initial encounter for closed fracture (principal); X58.XXXA Exposure to other specified factors, initial encounter; S72.011A Unspecified intracapsular fracture of right femur, initial encounter for closed fracture | CPT/HCPCS: 73502 ==

== ENCOUNTER 2022-04-24 13:05 | Oncology outpatient (recurring) (ONCR) | payer MEDICARE, OTHER, SELFPAY ==
[2022-04-24 14:07] LABS: Basophils # 0.1 10^3/uL (0.0-0.1); Basophils % 1.6 %; Eosinophils # 0.2 10^3/uL (0.0-0.8); Eosinophils % 2.4 %; Hemoglobin 13.2 g/dL (11.5-15.3); Lymphocytes # 1.3 10^3/uL (0.8-4.8); Lymphocytes % 15.1 %; Mean Corpuscular Hemoglobin 29.9 pg (28.0-34.0); Mean Corpuscular Volume 99.8 fl (81-99); Mean Platelet Volume 10.4 fL (7.4-10.4); Monocytes # 0.7 10^3/uL (0.2-0.9); Neutrophils # 6.01 10^3/uL (1.8-7.7); Neutrophils % 72.2 %; Nucleated Red Blood Cells % 0 %; Platelet Count 653 10^3/cmm (130-400); Red Blood Count 4.41 10^6/uL (4.1-5.3); Red Cell Distribution Width 16.9 % (12.1-15.1); White Blood Count 8.3 10^3/uL (4.0-10.0)
[2022-04-24 14:47] LABS: Albumin Level 3.8 g/dL (3.5-5.2); Alkaline Phosphatase 84 IU/L (35-105); Blood Urea Nitrogen 28 mg/dL (8-23); Calcium 9.2 mg/dL (8.5-10.5); Carbon Dioxide 31 mmol/L (22-29); Chloride 102 mmol/L (98-107); Globulin 2.6 g/dL (1.3-4.6); Glucose 83 mg/dL (65-115); Osmolality Calculated 293 mOsm/kg (285-295); Sodium 139 mmol/L (136-145); Total Bilirubin 0.3 mg/dL (0.15-1.2); Total Protein 6.4 g/dL (6.6-8.7)
[2022-04-24 14:50] LABS: Anion Gap 13.2 (5-19); Potassium 7.2 mmol/L (3.5-5.1)
[2022-04-24 15:00] LABS: Alanine Aminotransferase < 5 U/L (0-33); Aspartate Amino Transferase 68 U/L (0-32)
== END 2022-04-28 23:59 | disposition home or self-care (01) ==
PROVIDERS: Nurse Practitioner Family; PCP Family Medicine; Referring Provider Family Medicine; Visit Provider Internal Medicine Medical Oncology
DX: D47.3 Essential (hemorrhagic) thrombocythemia (principal); Z79.899 Other long term (current) drug therapy; Z98.890 Other specified postprocedural states
CPT/HCPCS: 80053; 85025; 99214

== ENCOUNTER 2022-05-02 13:40 | Oncology outpatient (recurring) (ONCR) | payer MEDICARE, OTHER, SELFPAY ==
[2022-05-02 14:45] LABS: Anion Gap 13.7 (5-19); Blood Urea Nitrogen 29 mg/dL (8-23); Calcium 9.5 mg/dL (8.5-10.5); Carbon Dioxide 29 mmol/L (22-29); Chloride 100 mmol/L (98-107); Glucose 101 mg/dL (65-115); Osmolality Calculated 290 mOsm/kg (285-295); Potassium 5.7 mmol/L (3.5-5.1); Sodium 137 mmol/L (136-145)
== END 2022-05-29 23:59 | disposition home or self-care (01) ==
LOC: ONCMED 13:41
PROVIDERS: PCP Family Medicine; Visit Provider Internal Medicine Medical Oncology
DX: E87.5 Hyperkalemia (principal)
CPT/HCPCS: 36415; 80048

== ENCOUNTER → 2022-06-05 09:47 | Outpatient (BNVA) | payer MEDICARE, OTHER, SELFPAY | PROVIDERS: PCP Family Medicine; Visit Provider Specialist | DX: M17.12 Unilateral primary osteoarthritis, left knee (principal); M21.062 Valgus deformity, not elsewhere classified, left knee | CPT/HCPCS: 73560; 73565; 99214 ==

== ENCOUNTER → 2022-06-24 10:36 | Outpatient (BNVA) | payer MEDICARE, OTHER, SELFPAY | PROVIDERS: PCP Family Medicine; Visit Provider Specialist | DX: M17.12 Unilateral primary osteoarthritis, left knee (principal) | CPT/HCPCS: 99214 ==

== ENCOUNTER 2022-07-05 15:36 | Outpatient (CLI) | payer MEDICARE, OTHER, SELFPAY ==
--- NOTE | 2022-07-05 15:00 | CT_ITS ---
WS: [id number] NONCONTRAST CT LEFT LOWER LEG TECHNIQUE: Noncontrast CT LEFT lower leg with [facility] preoperative protocol CLINICAL INFORMATION: knee pain COMPARISON: Radiograph June 05, 2022 DLP: 987.[address] scans at [facility] use at least one of these dose optimization techniques: automated e xposure control; mA and/or kV adjustment per patient size (includes targeted exams where dose is matc hed to clinical indication); or iterative reconstruction. FINDINGS: Osteopenia. Advanced degenerative arthritis LEFT knee with [id number] articulation worse in the lat eral joint compartment with marginal sclerosis. Hypertrophic patella. Small to moderate suprapatellar effusion. Previous postoperative changes LEFT YO. CT/CT lower leg LT wo con* [id number] IMPRESSION: Noncontrast CT images obtained for [facility] preoperative protocol
== END 2022-07-05 15:37 | disposition home or self-care (01) ==
PROVIDERS: PCP Family Medicine; Visit Provider Specialist
DX: M25.562 Pain in left knee (principal)
CPT/HCPCS: 73700

== ENCOUNTER 2022-07-09 06:25 | Outpatient (CLI) | payer MEDICARE, OTHER, SELFPAY | END 2022-07-09 06:26 | disposition home or self-care (01) | LOC: RT 07-16 06:28 | PROVIDERS: PCP Family Medicine; Visit Provider Specialist | DX: Z01.818 Encounter for other preprocedural examination (principal) | CPT/HCPCS: 93005 ==

== ENCOUNTER 2022-07-16 14:51 | Observation (INO) | payer MEDICARE, OTHER, SELFPAY ==
[2022-07-09 10:18] VITALS: BMI 22.7
[2022-07-09 10:44] LABS: Basophils # 0.1 10^3/uL (0.0-0.1); Basophils % 1.9 %; Eosinophils # 0.1 10^3/uL (0.0-0.8); Eosinophils % 1.9 %; Hematocrit 42.9 % (37.0-47.0); Hemoglobin 13.1 g/dL (11.5-15.3); Lymphocytes # 1.2 10^3/uL (0.8-4.8); Lymphocytes % 19.3 %; Mean Corpuscular HGB Conc 30.5 g/dL (30.0-36.0); Mean Corpuscular Hemoglobin 28.1 pg (28.0-34.0); Mean Corpuscular Volume 91.9 fl (81-99); Mean Platelet Volume 10.5 fL (7.4-10.4); Monocytes # 0.5 10^3/uL (0.2-0.9); Monocytes % 7.9 %; Neutrophils # 4.25 10^3/uL (1.8-7.7); Neutrophils % 68.4 %; Nucleated Red Blood Cells % 0 %; Platelet Count 610 10^3/cmm (130-400); Red Blood Count 4.67 10^6/uL (4.1-5.3); Red Cell Distribution Width 17.3 % (12.1-15.1); White Blood Count 6.2 10^3/uL (4.0-10.0)
--- NOTE | 2022-07-09 10:44 | ANES.PREANE2 ---
Pre-Anesthetic Assessment Height/Weight: Height 1.7 m Weight 65.771 kg Preop Diagnosis: Right intertrochanteric hip fracture Operation Date: 07/16/22 07:00 Proposed Procedures p Total Knee Arthoplasty With Clovis 75983,M17.10(Left) - Neyda Castillo MD Familial anesthetic complications: None Social No alcohol and No tobacco Vapes Exam alert, oriented x 3, clear to auscultation bilaterally and regular rate & rhythm Airway Mallampati: Class II Dentition: full Pulmonary Chronic Obstructive Pulmonary Disease pulmonary HTN listed CV/HEM Hx pulmonary embolism in 2019 - now on blood thinners patient has essential thrombocythemia takes hydroxyurea GI Gastroesophageal Reflux Disease Anesthetic Plan ASA status: 3 Anesthesia: Regional (specify below) Other: Adductor Risk of > 500 ml blood loss (7ml/kg in children): Yes, adequate IV access and fluids planned Medications/Allergies Home Medications Medication Instructions Recorded Confirmed Last Taken Type cholecalciferol (vitamin D3) 25 25 mcg PO DAILY 08/20/21 07/09/22 02/10/22 History mcg (1,000 unit) capsule magnesium carb,citrate,oxide 300 mg PO DAILY 08/20/21 07/09/22 02/10/22 History (Magnesium Complex) milk thistle seed extract 300 mg PO DAILY 08/20/21 07/09/22 02/10/22 History dexmmliqifrl-mkpzxcsy-nunbkt tablet 1 tab PO DAILY 08/20/21 07/09/22 02/10/22 History vitamins A,C,K-hlsm-rljpau 14,320 1 cap PO BID 08/20/21 07/09/22 02/10/22 History unit-226 mg-200 unit capsule (PreserVision AREDS) rivaroxaban 20 mg tablet (Xarelto) 20 mg PO DAILY 90 days #90 tabs 12/06/21 07/09/22 02/10/22 Rx acyclovir 800 mg tablet 800 mg PO TID PRN Cold Sores #30 02/20/22 07/09/22 Unknown Rx tabs tiotropium bromide 18 mcg capsule 1 cap inhalation DAILY 30 days #30 04/18/22 07/09/22 Unknown Rx with inhalation device (Spiriva inhalations with HandiHaler) hydroxyurea 500 mg capsule 500 mg PO .COMPLEX 90 days #96 caps 04/24/22 07/09/22 Unknown Rx citalopram 20 mg tablet (Celexa) 20 mg PO DAILY #30 tabs 05/16/22 07/09/22 Unknown Rx mirtazapine 15 mg tablet 22.5 mg PO BEDTIME #45 tabs 05/16/22 07/09/22 Unknown Rx oxybutynin chloride 5 mg tablet See Rx Instructions PO BID #90 tabs 05/16/22 07/09/22 Unknown Rx oxycodone 10 mg tablet 10 mg PO Q6H PRN pain 30 days #120 05/16/22 07/09/22 Unknown Rx tabs gabapentin 400 mg capsule 400 mg PO .5 TIMES DAILY #150 caps 05/28/22 07/09/22 Unknown Rx famotidine 20 mg tablet (Pepcid) 20 mg PO DAILY 06/05/22 07/09/22 Unknown History omeprazole 20 mg capsule,delayed See Rx Instructions .Route 06/17/22 07/09/22 Unknown Rx release .COMPLEX #30 caps aripiprazole 2 mg tablet (Abilify) 2 mg PO DAILY #30 tabs 07/03/22 07/09/22 Unknown Rx Allergies Allergy/AdvReac Type Severity Reaction Status Date / Time No Known Allergies Allergy Verified 07/09/22 10:11 [facility] Anesthesia Medical History Chronic pain syndrome Congestive heart failure COPD (chronic obstructive pulmonary disease) Depression Dyslipidemia Essential thrombocythemia Hx of pulmonary embolus Lumbosacral spondylolysis Macular degeneration of both eyes Osteoarthritis Peptic ulcer disease Pulmonary HTN Scoliosis Valvular heart disease Surgical History History of ankle surgery ORIF for right ankle fracture History of total left hip replacement Hx of tonsillectomy S/P ORIF (open reduction internal fixation) fracture (02/12/22) ORIF for right intertrochanteric hip fracture with associated subcapital hip fracture Family History Father Alcoholic cirrhosis of liver Other Dementia Hyperlipidemia Denies family history of Diabetes CAD (coronary artery disease) Clotting disorder Psychiatric illness Chronic kidney disease (CKD) Suicide Anesthesia complication Bleeding disorder Lung disease Cancer Hypertension Stroke Social History Smoking and tobacco status: former smoker Alcohol intake: never Lives independently: Yes Household members: none Marital status: / Current occupational status: retired Data Anesthesia : 07/09/22 10:31 07/09/22 10:31 Cardiac Studies: No Data to Display
--- NOTE | 2022-07-09 10:53 | ECG_ITS ---
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 Measurements Intervals [place] Rate: 60 P: 47 AR: 167 QRS: 16 QRSD: 115 T: 38 QT: 439 QTc: 440 Interpretive Statements SINUS RHYTHM LOW QRS VOLTAGE IN PRECORDIAL LEADS [QRS DEFLECTION < 1.0 mV IN CHEST LEADS] MODERATE INTRAVENTRICULAR CONDUCTION DELAY [110+ ms QRS DURATION] Compared to ECG 02/10/2022 15:20:06 Low QRS voltage now present Intraventricular conduction delay now present Electronically Signed On 07-10-2022 8:20:36 CDT by Herman Chaney M.D. [id number]
[2022-07-09 11:10] LABS: Add Urine Microscopic? YES; Bilirubin Urine Neg (Negative); Blood Urine Neg (Negative); Glucose Urine UA Norm (Normal); Ketones Urine Negative (Negative); Leukocyte Esterase Urine 2+ (Negative); Nitrate Urine Negative (Negative); Protein Urine Neg (Negative); Urine Appearance Turbid (CLEAR); Urine Color Yellow (Yellow); Urobilinogen Urine Norm (Negative); pH Urine 7 (5-7)
[2022-07-09 11:11] LABS: Add Urine Culture? Yes; Bacteria Urine TRACE /hpf; RBC Urine 0-4 /hpf (0-2); Squamous Epithelial Cell Urine 0-4 /hpf (0-5); WBC Urine 40-55 /hpf (0-5)
[2022-07-09 11:50] LABS: Alanine Aminotransferase 9 U/L (0-33); Alkaline Phosphatase 93 U/L (35-105); Aspartate Amino Transferase 13 U/L (0-32); Blood Urea Nitrogen 22 mg/dL (8-23); Calcium 9.5 mg/dL (8.5-10.5); Carbon Dioxide 28 mmol/L (22-29); Chloride 99 mmol/L (98-107); Creatinine Clr Calc Pharmacy 61.6208; Globulin 2.3 g/dL (1.3-4.6); Glucose 74 mg/dL (65-115); Osmolality Calculated 288 mOsm/kg (285-295); Sodium 138 mmol/L (136-145); Total Bilirubin 0.3 mg/dL (0.15-1.2); Total Protein 6.3 g/dL (6.6-8.7)
[2022-07-16] VITALS (25 sets, daily range): BP systolic 90–149; BP diastolic 50–92; PULSE 67–95; RESP 12–18; TEMP 36.4–37.2; O2SAT 84–98; BMI 22.2
[2022-07-16] MEDS: CELEcoxib 200 mg Capsule 400 MG PO (06:11)
[2022-07-16] MEDS: sodium chloride 0.9% 1,000 ML 30 ML IV ×2 (06:13→10:00)
[2022-07-16] MEDS: acetaminophen 1,000 MG/100 ML PIGGYBACK 400 MG IV ×3 (06:15→22:05)
--- NOTE | 2022-07-16 06:50 | P.ANESUD_ITS ---
Pre-Anesthetic Update Pre-Anesthetic Assessment: Date of Surgery/Procedure: 07/16/22 Preop Alison gnosis: Degenerative osteoarthritis left knee Proposed Procedure: Operation Date: 07/16/22 07:00 Proposed Procedures p Total Knee Arthoplasty With Clovis 02133,M17.10(Left) - Neyda Castillo MD Any changes to Pre-Anesthetic Assessment?: No Last Intake: Intake Last Liquid Date 07/15/22 Last Liquid Time 22:00 Last Solid Date 07/15/22 Last Solid Time 20:30 Vitals: Temperature 98.8 F 07/16/22 06:03 Temperature Source Temporal Artery S can 07/16/22 06:03 Pulse Rate 82 07/16/22 06:03 Pulse Rhythm 07/16/22 05:51 Pulse Strength 3+ Normal 07/16/22 05:51 Respiratory Rate 18 07/16/22 06:03 Blood Pressure 135/72 07/16/22 06:03 Blood Pressure Yadira n 93 07/16/22 06:03 Pulse Oximetry 93 07/16/22 06:03 Oxygen Delivery Me thod 07/16/22 06:03 Exam: Pre-Anes Outpt Exam: alert, oriented x 3, clear to auscultation bilaterally and regular rate & rhythm Other Pertinent Information: Other Pertinent Information: Patient spoke with Dr Mistry regarding platelet function. He told her that platelets are functional. 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 This does not appear to be the case. Cardiac Studies: No Data to Display
--- NOTE | 2022-07-16 06:52 | ANES.PROC ---
Anesthesia Procedures Procedure/Date: 07/16/22 Nerve Block ^: Nerve Block 1: Main Anesthesia: spinal anesthesia block Time Out Performed: Yes Consent: requested by attending/covering physician, from patient, risks and benefits reviewed and patient agrees to proceed Nerve block location: adductor canal (L) Anesthesia monitors applied: pulse oximetry, EKG and BP cuff Nerve block position: supine Anesthetic Used: ropivicaine 0.5% (30) and with decadron (4 mg) Ultrasound used to: recognize landmarks and visualize and ID femerol nerve Nerve Stimulator Used?: No Interscalene/Femoral BLK: 4 stimuplex 21 g needle used for position and inplane approach, visualize local anesthetic spread and no vascular puncture identified Injection: neg aspiration of heme Patient Tolerated Procedure: well and no complications Complications: none
--- NOTE | 2022-07-16 06:56 | P.HPUD_ITS ---
Surgery/Procedure H&P Update DATE OF PROCEDURE: July 16, 2022 DATE H&P PERFORMED: 06/24/22 H&P UPDATE INFORMATION: I have reviewed H&P completed within last 30 days, I have examined patient prior to procedure, No changes to prior documentation and H[place] is [place] [facility] [place] date indicated PREOP DIAGNOSIS: Degenerative osteoarthritis left knee PLANNED PROCEDURE: Operation Date: 07/16/22 07:00 Proposed Procedures p Total Knee Arthoplasty With Clovis 75411,M17.10(Left) - Neyda Castillo MD Related Problem List Diagnoses (1) Osteoarthritis of left knee: Qualifiers: Osteoarthritis type: primary Qualified Code(s): M17.12 - Unilateral primary osteoarthritis, left knee (2) Valgus deformity, not elsewhere classified, left knee:
[2022-07-16] MEDS: ceFAZolin 2,000 MG in sodium chloride 0.9% (plus) 50 ML 100 MG IV ×3 (07:21→23:22)
[2022-07-16] MEDS: ceFAZolin 1,000 mg SDV 1000 MG IRRIGATION (08:16)
[2022-07-16] MEDS: vancomycin 1,000 MG SDV 1000 MG XX (08:16)
[2022-07-16] MEDS: sodium chloride 0.9% 100 mL Bag 50 ML XX (08:17)
[2022-07-16] MEDS: tranexamic acid 1,000 mg/10mL SDV 1000 MG IRRIGATION (08:19)
--- NOTE | 2022-07-16 10:44 | P.OP_ITS ---
Operative Report Date of procedure: July 16, 2022 Pre-op diagnosis: Severe degenerative osteoarthritis left knee with valgus deformity and slight flexion contracture Post-op diagnosis: Severe degenerative osteoarthritis left knee with valgus deformity and slight flexion contracture Post-op findings: Severe degenerative osteoarthritic in osteophytes. Procedure done: Clovis assisted left total knee arthroplasty Implants: The Gaby total knee system with a size 3 triathlon beaded cruciate retaining femur left, a triathlon titanium tibial component size 3 beaded, a triathlon X3 tibial bearing CS insert size 3 X 13 mm and a beaded triathlon titanium asymmetric patella size 35 x 10 mm Specimens removed/disposition: Bone, disposed of Surgeon: Neyda Castillo Youth Coordinator: Aden Shen Youth Coordinator: Surgeon financial planning assistant was required for use of the Clovis, including positioning, facilitating surgical visualization, retracting, and input of Clovis experience. Anesthesia: MAC (With spinal and adductor block, ASA 3) Estimated blood loss (mL): 25 Tourniquet time (min): 95 (At 250 mmHg) IV fluids (mL): 1,100 Urine output (mL): 900 Complications: None Findings: Severe degenerative osteoarthritis with valgus deformity, slight flexion contracture, large osteophytes, and significant cartilage loss Condition: stable Disposition: PACU (Then to floor for postop and pain management) Brief History: This is an established 72 year old female patient here today for left total knee Ean valgus deformity and severe degenerative osteoarthritis. Patient states that she has had pain to the knee for years. Patient describes the pain to the anterior knee. Patient states that the knee snaps, pop, grinds, gives out, feels unstable. Patient states that the pain and instability keeps her from doing her daily activities. Patient utilizes a cane for ambulation.? Preoperatively, consents were signed and questions were answered. Procedure: The patient was brought to the operating theater, and after undergoing adequate spinal anesthesia supplemented with adductor canal block and MAC, ASA 3, the left lower extremity was prepped with Dura-Prep and draped in usual fashion following placement of a tourniquet high on the leg. The leg was then draped free. Following prepping and draping, the leg was exsanguinated, and the tourniquet was elevated to 250 mmHg for a total tourniquet time of 95 minutes.? Prior to elevation of the tourniquet, but following exposure of the site of surgery, a surgical pause was performed. At the time of the surgical pause, we confirmed the site and side of surgery. Additionally, we confirmed the appropriate and timely administration of preoperative antibiotics, Ancef 2 g and Transexemic acid 1 g.? The availability of equipment was confirmed, and the patient's identity was verbalized as well.? An additional transexemic acid 1 g was given at the end of the surgical procedure as well. Following the surgical pause, an incision was made centering over the patella continuing proximally and distally as necessary to allow access to the knee joint. Dissection continued through skin and soft tissues using a scalpel. Hemostasis was obtained using electrocautery. The skin incision was followed by a median parapatellar arthrotomy. The leg was extended and the patella was able to be displaced laterally.? Appropriate arrays and markers were placed in approp riate position for use of the Clovis.? Preoperative planning had been accomplished and was discussed in detail between the 2 surgeons in this case and also the [facility] primary care sales representative.? Intraoperative mapping of the femur and tibia was accomplished after the arrays were placed.? Internal markers were also placed.? Once we had accomplished the Clvois mapping, we began the appropriate resections for placement of the prosthesis.? The plan was for a cruciate retaining left total knee arthroplasty. Once appropriate mapping had been accomplished retraction was established using manual retraction by Dr. Shen and also the [facility] leg positioner and retractors.? The knee was evaluated.? There was a significant valgus deformity with slight flexion contracture. There is also osteopenic changes.? There were large osteophytes circumferentially about the trochlear groove as well as the patella and medial tibial plateau.? Appropriate bone resection was accomplished using the Clovis.? This started with the femur and subsequently tibial resection was accomplished.? Osteophytes were removed prior to this portion of the procedure.? We had performed a minimal medial release at the beginning of the procedure to allow for placement of the array.? Proximal tibia was evaluated and it was felt that appropriate size for the tibia was a size 3 which matched the femoral component. A trial reduction was accomplished after osteophytes have been removed as well as the medial and lateral menisci.? We had removed the anterior cruciate ligament at the beginning of the case and preserved the posterior cruciate ligament.? Trial reduction was accomplished with a size 3 femoral cruciate retaining component and a size 3 CS tibial bearing insert which was 13 mm in thickness.? With this, we had excellent stability, full extension, and appropriate alignment.? Trial components were removed after the femur had been drilled.? Prior to removal of the tibial tray which had been pinned in position with appropriate rotation as determined by the Clovis plan, we broached the tibia.? Subsequently, the 4 drill holes were made for the prosthetic component.? All trial components had been removed, and the wound was irrigated.? Plans were made for insertion of the prosthetic components.? Prior to this, the patella was manually prepared.? After resection of the articular surface with the jogging system, it was measured and measured a 35 mm patella.? We resected approximately 9 mm of patella and patellar height was restored with the patellar component. Once again, the wound was irrigated.? The Tritanium tibia was impacted into position.? The beaded femur was then impacted into position in a cementless fashion. The CS tibial insert was placed prior to placement of the femoral component. The patella was pressed into position with a patellar clamp.? Exparel was injected about the components deep and superficially.? The knee was then copiously irrigated with betadine and saline and suctioned dry. Attention was then directed to closure. Closure was accomplished with 0 Vicryl in the fascial tissues.? This was followed by Surgiflo and vancomycin powder.? Following this, a 2-0 Monocryl was used in the subcutaneous tissues, and the skin was closed with skin keagan.? Care was taken to assure an excellent subcutaneous as well as skin closure.? A sterile dressing was then placed consisting of Dermabond Prineo, Telfa, OpSite, sterile soft roll including over the foot, and an Hubert wrap. The patient was returned the Recovery Room in a satisfactory condition. X- rays were obtained and reviewed there.? The patient will be discharged to the floor for postoperative rehabilitation and pain management. Related Problem List Diagnoses (1) Osteoarthritis of left knee: (2) Valgus deformity, not elsewhere classified, left knee:
--- NOTE | 2022-07-16 10:54 | XRR_ITS ---
PROCEDURE INFORMATION: Exam: XR Left Knee Exam date and time: 07/16/2022 10:59 AM Age: 72 years old Clinical indication: Device placement; Joint replacement hardware; Prior surgery; Surgery date: Post-operative (0-2 days); Surgery type: Knee replacement; Additional info: Status post total knee arthroplasty TECHNIQUE: Imaging protocol: Radiologic exam of the Left knee. Views: 1 or 2 views. COMPARISON: CR XR knees AP WB w LT lmt ORTH 06/05/2022 9:58 AM FINDINGS: Bones/joints: There has been a left knee replacement. Alignment appears anatomic. Soft tissues: There is gas in the soft tissues of the anterior left knee. There are anterior skin keagan. XR/XR knee LT 1-2V [id number] IMPRESSION: There has been a left knee replacement. Alignment appears anatomic.
[2022-07-16] MEDS: fentaNYL 50 mcg/mL INJ 2mL IVP (11:06)
[2022-07-16] MEDS: oxyCODONE 5 mg IR Tab/Cap 10 MG PO ×2 (12:14→18:24)
[2022-07-16] MEDS: citric acid-sodium citrate 30 mL UDC PO (14:12)
--- NOTE | 2022-07-16 14:29 | ANE.PACU2 ---
Inpatient post-anesthesia follow up: Airway intact: Yes Vital signs: Temperature 98.2 F Pulse Rate 71 Respiratory Rate 17 Blood Pressure 100/65 Pulse Oximetry 94 Oxygen Delivery Me thod Room Air Oxygen Flow Rate 2 Fraction of Inspir ed Oxygen Hydration adequate: Yes Nausea and vomiting: No Pain level: 1 Mental status: Baseline
--- NOTE | 2022-07-16 14:48 | SUR.EXTENDED ---
patient transported to 258. nurse livingston in room on arrival. patient transported in floor bed, awake and alert. patient on room air with sat at 94%. dressing to left knee dry and intact. patient has audelia hose and foot pump to right foot/leg. patient able to move both legs and toes and feet.
[2022-07-16] MEDS: TRAMadol 50 mg Tablet PO ×2 (15:31→20:58)
[2022-07-16] MEDS: ondansetron 2 mg/ML SDV 2 mL 4 MG IVP (15:31)
[2022-07-16] MEDS: chlorhexidine gluconate 0.12% Btl 473 mL 30 ML MUCOUS MEM ×3 (15:32→21:04)
[2022-07-16] MEDS: gabapentin 400 mg Capsule PO ×3 (15:46→20:59)
[2022-07-16] MEDS: calcium carbonate 500 mg Chew Tablet 1000 MG PO (17:59)
[2022-07-16] MEDS: iron polysaccharide complex 150 mg Capsule PO (18:00)
[2022-07-16] MEDS: mupirocin oint 22 gm 1 APPLIC NASAL (18:00)
[2022-07-16] MEDS: sennosides-docusate Tablet 2 TAB PO (18:00)
[2022-07-16] MEDS: oxybutynin 5 mg Tablet PO (20:59)
[2022-07-16] MEDS: mirtazapine 15 mg Tablet 22.5 MG PO (21:00)
[2022-07-16] MEDS: oxybutynin 5 mg Tablet 10 MG PO (21:01)
[2022-07-17] VITALS (7 sets, daily range): BP systolic 92–112; BP diastolic 56–61; PULSE 65–78; RESP 16–20; TEMP 36.4–36.8; O2SAT 93–97
[2022-07-17] MEDS: oxyCODONE 5 mg IR Tab/Cap 10 MG PO ×3 (00:28→13:02)
[2022-07-17] MEDS: TRAMadol 50 mg Tablet PO ×2 (03:40→11:18)
[2022-07-17] MEDS: gabapentin 400 mg Capsule PO ×2 (03:40→11:06)
[2022-07-17 03:45] LABS: Basophils # 0.1 10^3/uL (0.0-0.1); Basophils % 1.1 %; Eosinophils # 0.1 10^3/uL (0.0-0.8); Eosinophils % 0.9 %; Hematocrit 40.9 % (37.0-47.0); Hemoglobin 12.1 g/dL (11.5-15.3); Lymphocytes # 0.5 10^3/uL (0.8-4.8); Lymphocytes % 5.2 %; Mean Corpuscular HGB Conc 29.6 g/dL (30.0-36.0); Mean Corpuscular Volume 94.7 fl (81-99); Mean Platelet Volume 10.3 fL (7.4-10.4); Monocytes # 0.8 10^3/uL (0.2-0.9); Neutrophils # 7.43 10^3/uL (1.8-7.7); Neutrophils % 83.1 %; Nucleated Red Blood Cells % 0 %; Platelet Count 516 10^3/cmm (130-400); Red Blood Count 4.32 10^6/uL (4.1-5.3); White Blood Count 8.9 10^3/uL (4.0-10.0)
[2022-07-17 04:15] LABS: Chloride 103 mmol/L (98-107); Glucose 108 mg/dL (65-115); Sodium 140 mmol/L (136-145)
--- NOTE | 2022-07-17 04:47 | PC.NURSE ---
Melendez catheter removed, patient tolerated well.
[2022-07-17 04:59] LABS: Blood Urea Nitrogen 20 mg/dL (8-23); Calcium 9.2 mg/dL (8.5-10.5); Carbon Dioxide 28 mmol/L (22-29); Osmolality Calculated 293 mOsm/kg (285-295)
[2022-07-17 05:07] LABS: Anion Gap 14.4 (5-19); Potassium 5.4 mmol/L (3.5-5.1)
[2022-07-17] MEDS: acetaminophen 1,000 MG/100 ML PIGGYBACK 400 MG IV (06:09)
[2022-07-17] MEDS: ceFAZolin 2,000 MG in sodium chloride 0.9% (plus) 50 ML 100 MG IV (06:36)
[2022-07-17] MEDS: cholecalciferol (vitamin D3) 1,000 unit Tablet 1000 UNIT PO (09:02)
[2022-07-17] MEDS: calcium carbonate 500 mg Chew Tablet 1000 MG PO (09:02)
[2022-07-17] MEDS: ARIPiprazole 2 mg Tablet PO (09:03)
[2022-07-17] MEDS: rivaroxaban 10 mg Tablet 20 MG PO (09:03)
[2022-07-17] MEDS: CELEcoxib 200 mg Capsule PO (09:03)
[2022-07-17] MEDS: multivitamin therapeutic Tablet 1 TAB PO (09:03)
[2022-07-17] MEDS: citalopram 20 mg Tablet PO (09:03)
[2022-07-17] MEDS: famotidine 20 mg Tablet PO (09:03)
[2022-07-17] MEDS: pantoprazole DR 40 mg Tablet PO (09:03)
[2022-07-17] MEDS: iron polysaccharide complex 150 mg Capsule PO (09:04)
[2022-07-17] MEDS: chlorhexidine gluconate 0.12% Btl 473 mL 30 ML MUCOUS MEM ×2 (09:04→13:03)
[2022-07-17] MEDS: mupirocin oint 22 gm 1 APPLIC NASAL (09:06)
--- NOTE | 2022-07-17 10:22 | PC.CHAP ---
Pastoral Care Encounter/Spiritual Assessment Type of Contact [] Declined orthotic and prosthetic technician visit [] Patient/Family/Request visit [] Outpatient visit [] Follow-up visit [] Physician referral [] Code/Alert [x] Routine visit [] Staff referral [] Actively dying [] Patient sleeping [] Family support [] [] Out of room [] Palliative care [] [] Receiving care in room [] Pre-surgical visit [] Trauma [] Long length of stay [] ICU visit [] Other: Relational/Emotional Strength [] Patient feels connected with others/family/visitors/staff [] Distress [] Loneliness/isolation [] Abandonment Spirituality of Patient [x] Person of Nidhi [] Attends Zoroastrian of their Nidhi [x] Believes in Prayer [] Reads Bible or Jewish materials [] There are Spiritual issues to be addressed Tool And Die Maker Apprentice Interventions [x] Prayer [] Active listening [] Non-anxious presence [] Spiritual/emotional support [] Crisis/trauma care [] Spiritual counseling [] Bereavement support [] Provided bereavement packet [] Provided Bible/devotional materials [] Provided toy/stuffed animal, coloring book to patient or family member [] Provided Communion [] Anointing/Lindsay [] Salvation [x] Completed spiritual assessment [] Other: Impact on Illness or Injury [] Angry [] Fearful [] Anxious [] Often cries [] Exhaustion [] Unable to work [] Unable to attend mandaeism [] Unable to walk/stand [] Unable to read [] Unable to drive [] Unable to eat/drink [] Unable to sleep [] Unable to be with family [] Patient intubated [] Other: Summary Time spent with patient 10 min
--- NOTE | 2022-07-17 13:43 | PM.DCS ---
Discharge Providers Date of Admission: 07/16/22 14:51 Date of Discharge: July 17, 2022 Attending Provider at Admission: Neyda Castillo MD Attending Provider at Discharge: Neyda Castillo MD Primary Care Provider: Luli Anna DO Diagnoses at Discharge Discharge Diagnosis (1) Status post total left knee replacement not using cement: Status: Acute Permanent problem details: Diagnosis: Severe degenerative osteoarthritis left knee with valgus deformity and slight flexion contracture Procedure done: Clovis assisted left total knee arthroplasty Implants: The [employer]ractApps total knee system with a size 3 triathlon beaded cruciate retaining femur left, a triathlon titanium tibial component size 3 beaded, a triathlon X3 tibial bearing CS insert size 3 X 13 mm and a beaded triathlon titanium asymmetric patella size 35 x 10 mm (2) Osteoarthritis of left knee: Status: Acute Qualifiers: Osteoarthritis type: primary Qualified Code(s): M17.12 - Unilateral primary osteoarthritis, left knee (3) Valgus deformity, not elsewhere classified, left knee: Status: Acute Reason for Visit Reason for Visit: surgery Brief History: This is an established 72 year old female patient presenting for left total knee arthroplasty due to valgus deformity and severe degenerative osteoarthritis. Patient states that she has had pain to the knee for years. Patient describes the pain to the anterior knee. Patient states that the knee snaps, pop, grinds, gives out, feels unstable. Patient states that the pain and instability keeps her from doing her daily activities. Patient utilizes a cane for ambulation.? Preoperatively, consents were signed and questions were answered. Hospital Course Hospital Course The patient was admitted under observation status following her total knee arthroplasty for the left knee. The patient had a Clovis assisted total knee arthroplasty which was well-tolerated. She was brought to the floor postoperatively and had physical therapy. On the first postoperative day, she was up and walking in the falcon with minimal complaints of pain. Her wound was benign. Dressings were intact. There is no evidence of DVT. Physical therapy and nursing felt comfortable for her discharge home. The patient also felt comfortable and therefore was discharged home. She has a pain management physician, and he currently has her on oxycodone 10 mg 4/day. This is a decrease from having her take 15 mg tablets. She is not interested in increasing her oxycodone amount. She will be sent with tramadol to supplement for breakthrough pain as this is worked for her here in the hospital. Additionally, she is advised to continue her Bactrim which was prescribed prehospitalization. I have also given her some tramadol for breakthrough. Physical Exam Const: COMMON NORMALS: no acute distress, average body habitus, patient oriented x3 and alert GENERAL APPEARANCE: cooperative and comfortable ORIENTATION/CONSCIOUSNESS: Yes awake HENMT: COMMON NORMALS: normocephalic and atraumatic HEAD & SCALP: normocephalic and atraumatic Eye: GENERAL EYE: appearance normal, both eyes and all related structures Chest: COMMONS NORMALS: normal inspection of the chest Resp: COMMON NORMALS: normal respiratory effort EFFORT & INSPECTION: Yes able to speak in complete sentences and Yes symmetric chest movement Extremity: LEFT LOWER EXTREMITY: Yes knee joint (Dressing removed, wound benign) Left knee: Yes inspection (Minimal bruising), Yes palpation (Nontender), Yes ROM (Not evaluated) and Yes neurovascular exam (Intact with no evidence of DVT) Neuro: COMMON NORMALS: patient oriented x3 SENSORIUM/ORIENTATION: Yes alert Psych: COMMON NORMALS: mental status grossly normal APPEARANCE: Yes grossly normal ATTITUDE: Yes calm and Yes engaged ATTENTION/CONCENTRATION: Yes attention grossly intact Skin: COMMON NORMALS: no rashes or lesions noted GENERAL SKIN EXAM: no rashes or lesions noted Urinary Catheter Management: Melendez: Cath Placed During This Visit: yes, but has since been removed by the nurse Reason for Continuing Indwelling Catheter: Not indwelling catheter Urinary Catheter Date of Insertion: 07/16/22 Urinary Catheter Time of Insertion: 07:40 Date Urinary Catheter Removed: 07/17/22 Time Urinary Catheter Discontinued: 04:45 Discharge Data Studies Completed and Pending Completed Studies During Hospitalization Category Date Time Status XR knee LT 1-2V 03131 Urgent Exams 07/16/22 10:54 Completed Radiology Impressions Knee X-Ray 07/16/22 10:54 IMPRESSION: There has been a left knee replacement. Alignment appears anatomic. Laboratory Results WBC 8.9 10^3/uL (4.0-10.0) 07/17/22 03:01 RBC 4.32 10^6/uL (4.1-5.3) 07/17/22 03:01 Hgb 12.1 g/dL (11.5-15.3) 07/17/22 03:01 Hct 40.9 % (37.0-47.0) 07/17/22 03:01 MCV 94.7 fl (81-99) 07/17/22 03:01 MCH 28.0 pg (28.0-34.0) 07/17/22 03:01 MCHC 29.6 g/dL (30.0-36.0) L 07/17/22 03:01 RDW 18.0 % (12.1-15.1) H 07/17/22 03:01 Plt Count 516 10^3/cmm (130-400) H 07/17/22 03:01 MPV 10.3 fL (7.4-10.4) 07/17/22 03:01 Neut % (Auto) 83.1 % 07/17/22 03:01 Lymph % (Auto) 5.2 % 07/17/22 03:01 [place] % (Auto) 9.0 % 07/17/22 03:01 Eos % (Auto) 0.9 % 07/17/22 03:01 Baso % (Auto) 1.1 % 07/17/22 03:01 Neut # (Auto) 7.43 10^3/uL (1.8-7.7) 07/17/22 03:01 Lymph # (Auto) 0.5 10^3/uL (0.8-4.8) L 07/17/22 03:01 [place] # (Auto) 0.8 10^3/uL (0.2-0.9) 07/17/22 03:01 Eos # (Auto) 0.1 10^3/uL (0.0-0.8) 07/17/22 03:01 Baso # (Auto) 0.1 10^3/uL (0.0-0.1) 07/17/22 03:01 Nucleated RBC % (auto) 0 % 07/17/22 03:01 Nucleated RBCs # 0.0 /100WBC 07/17/22 03:01 Sodium 140 mmol/L (136-145) 07/17/22 03:01 Potassium 5.4 mmol/L (3.5-5.1) H 07/17/22 03:01 Chloride 103 mmol/L (98-107) 07/17/22 03:01 Carbon Dioxide 28 mmol/L (22-29) 07/17/22 03:01 Anion Gap 14.4 (5-19) 07/17/22 03:01 BUN 20 mg/dL (8-23) 07/17/22 03:01 Creatinine 1.1 mg/dL (0.5-0.9) H 07/17/22 03:01 GFR Calculation Not Reportable 07/17/22 03:01 Glucose 108 mg/dL (65-115) 07/17/22 03:01 Calculated Osmolality 293 mOsm/kg (285-295) 07/17/22 03:01 Calcium 9.2 mg/dL (8.5-10.5) 07/17/22 03:01 Total Bilirubin 0.3 mg/dL (0.15-1.2) 07/09/22 10:31 AST 13 U/L (0-32) 07/09/22 10:31 ALT 9 U/L (0-33) 07/09/22 10:31 Alkaline Phosphatase 93 U/L (35-105) 07/09/22 10:31 Total Protein 6.3 g/dL (6.6-8.7) L 07/09/22 10:31 Albumin 4.0 g/dL (3.5-5.2) 07/09/22 10:31 Globulin 2.3 g/dL (1.3-4.6) 07/09/22 10:31 Urine Color Yellow (Yellow) 07/09/22 10:35 Urine Appearance Turbid (CLEAR) A 07/09/22 10:35 Urine pH 7 (5-7) 07/09/22 10:35 Ur Specific [place] 1.000 (1.005-1.030) L 07/09/22 10:35 Urine Protein Neg (Negative) 07/09/22 10:35 Urine Glucose (UA) Norm (Normal) 07/09/22 10:35 Urine Ketones Negative (Negative) 07/09/22 10:35 Urine Blood Neg (Negative) 07/09/22 10:35 Urine Nitrate Negative (Negative) 07/09/22 10:35 Urine Bilirubin Neg (Negative) 07/09/22 10:35 Urine Urobilinogen Norm mg/dL (Negative) 07/09/22 10:35 Ur Leukocyte Esterase 2+ (Negative) H 07/09/22 10:35 Urine RBC 0-4 /hpf (0-2) H 07/09/22 10:35 Urine WBC 40-55 /hpf (0-5) H 07/09/22 10:35 Ur Squamous Epith Cells 0-4 /hpf (0-5) H 07/09/22 10:35 Amorphous Sediment Not Reportable 07/09/22 10:35 Urine Bacteria Trace /hpf (NONE) 07/09/22 10:35 Vitals Last Vital Signs Temp 98.3 F 07/17/22 10:59 Pulse 65 07/17/22 10:59 Resp 17 07/17/22 13:02 BP 92/56 07/17/22 10:59 Pulse Ox 94 07/17/22 10:59 O2 Del Method 07/17/22 10:59 O2 Flow Rate 2 07/16/22 12:24 Discharge Plan Discharge Patient Disposition: Home Health Service Condition: Stable Prescriptions: New celecoxib 200 mg Capsule 200 mg PO DAILY 30 Days Qty: 30 0RF tramadol 50 mg Tablet 50 - 100 mg PO Q6H PRN (Reason: Mild To Moderate Pain) 7 Days Qty: 56 0RF acetaminophen 500 mg Tablet 1,000 mg PO Q8H 15 Days Qty: 90 0RF Continued oozruwtgoaly-veyhrnoz-djggns Tablet 1 tab PO DAILY Magnesium Complex 300 mg magnesium tablet 300 mg PO DAILY cholecalciferol (vitamin D3) 25 mcg (1,000 unit) capsule 25 mcg PO DAILY milk thistle seed extract 300 mg PO DAILY PreserVision AREDS [id number],[id number] ktsm-xg-hixu capsule 1 cap PO BID acyclovir 800 mg tablet 800 mg PO TID PRN (Reason: Cold Sores) Qty: 30 2RF hydroxyurea 500 mg capsule 500 mg PO .COMPLEX 90 Days Qty: 96 0RF Rx Instructions: 500 mg PO 2 caps on Mon, Weds, Fri 1 caps on , Th None on Fri and Friday Spiriva with HandiHaler 18 mcg capsule, w/inhalation device 1 cap inhalation DAILY 30 Days Qty: 30 5RF Rx Instructions: puncture 1 cap using device; one dose = 2 inhalations 340B oxycodone 10 mg tablet 10 mg PO Q6H PRN (Reason: pain) 30 Days Qty: 120 0RF Rx Instructions: Do not fill until 05/24/2022 oxybutynin chloride 5 mg tablet See Rx Instructions PO BID Qty: 90 3RF Rx Instructions: Take one in the AM and 2 at night famotidine [Pepcid] 20 mg tablet 20 mg PO DAILY Xarelto 20 mg tablet 20 mg PO DAILY 90 Days Qty: 90 1RF Rx Instructions: must administer with evening meal gabapentin 400 mg capsule 400 mg PO .5 TIMES DAILY Qty: 150 2RF omeprazole 20 mg capsule,delayed release(DR/EC) See Rx Instructions .ROUTE .COMPLEX Qty: 30 2RF Dose Instruction: Take 1 capsule by mouth once daily Rx Instructions: Take 1 capsule by mouth once daily aripiprazole [Abilify] 2 mg tablet 2 mg PO DAILY Qty: 30 1RF sulfamethoxazole-trimethoprim [Bactrim DS] 800-160 mg tablet 1 tab PO BID Qty: 28 0RF citalopram [Celexa] 20 mg tablet 20 mg PO DAILY Qty: 30 1RF mirtazapine 15 mg tablet 22.5 mg PO BEDTIME Qty: 45 1RF Discharge Orders: Discharge Order (Routine); Ordered 07/17/22 Ordered By: Neyda Castillo Referrals: [facility] [place] Home Care ([facility]) [Outside] Neyda Castillo MD [Physician] - 07/31/22 8:30 am (This will be with nurse practitioner Farida Alvarez. You will see me at the following visit.) Discharge Diet: Advance as tolerated and Usual diet Discharge Activity: Increase activity as tolerated, Limit activity as instructed, Use walker/crutches as instructed and As per PT/OT instructions Patient Instructions: Tramadol (By mouth), Celecoxib (By mouth), Knee Replacement (DC), Opioid Safety Activity Restrictions/Additional Instructions: Ice to left knee. Elevation of left lower extremity. You may shower, but do not soak your knee. Maintain dressing, and if dressing is in place, cover wound. Home physical therapy for gait training, ambulation, strengthening, and range of motion. Discharge Attestations Time Spent in Discharge Care*: greater than 30 min Specific Discharge Activities: educating patient, educating and/or supporting family/caregiver, documenting/other paperwork and evaluating patient/reviewing data Quality Metrics Clinical Quality Measures [ No reported AMI, CVA or VTE this stay] Coding Level of Care Code Acute Chg FW DC note Diagnoses Status post total left knee replacement not using cement Z96.652 Osteoarthritis of left knee M17.12 Osteoarthritis type: primary Valgus deformity, not elsewhere classified, left knee M21.062
--- NOTE | 2022-07-17 14:21 | PC.NURSE ---
Addendum entered by Tay Toscano RN 07/17/22 14:22: Patient has them on bilaterally at this time. Original Note: This nurse just applied knee high audelia hose at this time.
--- NOTE | 2022-07-17 16:13 | PC.NURSE ---
Discharge Note Patient discharged to home via private vehicle accompanied by sister in law. Discharge instructions reviewed with patient and/or marketing sales representative. Mobile pharmacy medications and/or prescriptions provided. Belongings/home medications returned.
--- NOTE | 2022-07-17 16:18 | PC.NURSE ---
Iv removed at time of d/c completely intact.
== END 2022-07-17 14:35 | disposition home health service (06) ==
LOC: MEDSURG 14:51
PROVIDERS: Admitting Provider Specialist; PCP Family Medicine; Visit Provider Specialist
PROC: 8E0Y0CZ Robotic Assisted Procedure of Lower Extremity, Open Approach (ICD-10-PCS; CPT 27447; principal; 2022-07-16 07:00)
DX: M17.12 Unilateral primary osteoarthritis, left knee (principal); M21.062 Valgus deformity, not elsewhere classified, left knee; J44.9 Chronic obstructive pulmonary disease, unspecified; Z86.711 Personal history of pulmonary embolism; K21.9 Gastro-esophageal reflux disease without esophagitis; G89.29 Other chronic pain; Z79.891 Long term (current) use of opiate analgesic; F32.A Depression, unspecified; E78.5 Hyperlipidemia, unspecified; Z87.11 Personal history of peptic ulcer disease; Z87.891 Personal history of nicotine dependence
CPT/HCPCS: 27447; 36415; 51702; 73560; 80048; 80053; 81001; 85025; 87086; 94640; 97110; 97116; 97161; 97165; 97530; C1776; C9290; G0378; J0690; J1100; J2405; J2704; J2795; J3010; J3370; J3490; J7030

== ENCOUNTER 2022-07-29 14:33 | Oncology outpatient (recurring) (ONCR) | payer MEDICARE, OTHER, SELFPAY ==
[2022-07-29 15:34] LABS: Basophils # 0.1 10^3/uL (0.0-0.1); Basophils % 1.9 %; Eosinophils # 0.1 10^3/uL (0.0-0.8); Eosinophils % 1.1 %; Hematocrit 38.2 % (37.0-47.0); Hemoglobin 11.6 g/dL (11.5-15.3); Lymphocytes % 15.8 %; Mean Corpuscular HGB Conc 30.4 g/dL (30.0-36.0); Mean Corpuscular Hemoglobin 27.9 pg (28.0-34.0); Mean Corpuscular Volume 91.8 fl (81-99); Mean Platelet Volume 9.9 fL (7.4-10.4); Monocytes # 0.6 10^3/uL (0.2-0.9); Monocytes % 8.8 %; Neutrophils # 4.48 10^3/uL (1.8-7.7); Neutrophils % 71.3 %; Nucleated Red Blood Cells % 0 %; Platelet Count 606 10^3/cmm (130-400); Red Blood Count 4.16 10^6/uL (4.1-5.3); Red Cell Distribution Width 18.4 % (12.1-15.1); White Blood Count 6.3 10^3/uL (4.0-10.0)
[2022-07-29 16:00] LABS: Alanine Aminotransferase 6 U/L (0-33); Albumin Level 3.6 g/dL (3.5-5.2); Alkaline Phosphatase 137 U/L (35-105); Anion Gap 11.8 (5-19); Aspartate Amino Transferase 10 U/L (0-32); Blood Urea Nitrogen 22 mg/dL (8-23); Calcium 9.2 mg/dL (8.5-10.5); Carbon Dioxide 28 mmol/L (22-29); Chloride 94 mmol/L (98-107); Globulin 2.8 g/dL (1.3-4.6); Glucose 86 mg/dL (65-115); Lactate Dehydrogenase 288 U/L (135-214); Osmolality Calculated 271 mOsm/kg (285-295); Potassium 4.8 mmol/L (3.5-5.1); Sodium 129 mmol/L (136-145); Total Bilirubin 0.2 mg/dL (0.15-1.2); Total Protein 6.4 g/dL (6.6-8.7)
[2022-07-29] MEDS: pneumococcal (23 valent) SDV 0.5 mL IM (16:22)
== END 2022-07-29 23:59 | disposition home or self-care (01) ==
PROVIDERS: PCP Family Medicine; Referring Provider Family Medicine; Visit Provider Internal Medicine Medical Oncology
DX: D47.3 Essential (hemorrhagic) thrombocythemia (principal); D64.9 Anemia, unspecified; Z79.64 Long term (current) use of myelosuppressive agent; R19.7 Diarrhea, unspecified; Z23 Encounter for immunization; Z79.01 Long term (current) use of anticoagulants
CPT/HCPCS: 36415; 80053; 83615; 85025; 90471; 90732; 99214

== ENCOUNTER → 2022-07-31 08:33 | Outpatient (BNVA) | payer MEDICARE, OTHER, SELFPAY | PROVIDERS: PCP Family Medicine; Visit Provider Nurse Practitioner Family | DX: Z96.652 Presence of left artificial knee joint (principal) | CPT/HCPCS: 73560; 73565; 99024 ==

== ENCOUNTER 2022-08-07 13:33 | Outpatient (CLI) | payer MEDICARE, OTHER, SELFPAY | END 2022-08-07 13:34 | disposition home or self-care (01) | LOC: LAB 13:38 | PROVIDERS: PCP Family Medicine; Visit Provider Internal Medicine Medical Oncology | DX: R19.7 Diarrhea, unspecified (principal) | CPT/HCPCS: 87493 ==

== ENCOUNTER → 2022-08-28 15:26 | Outpatient (BNVA) | payer MEDICARE, OTHER, SELFPAY | PROVIDERS: PCP Family Medicine; Visit Provider Specialist | DX: Z96.652 Presence of left artificial knee joint (principal) | CPT/HCPCS: 73560; 73565; 99024 ==

== ENCOUNTER 2022-08-30 12:29 | Outpatient (CLI) | payer MEDICARE, OTHER, SELFPAY | END 2022-08-30 12:30 | disposition home or self-care (01) | LOC: LAB 12:32 | PROVIDERS: PCP Family Medicine; Visit Provider Family Medicine | DX: R19.7 Diarrhea, unspecified | CPT/HCPCS: 87493; 87506 ==

== ENCOUNTER 2022-09-04 14:58 | Outpatient (CLI) | payer MEDICARE, OTHER, SELFPAY ==
--- NOTE | 2022-09-04 14:30 | XR_ITS ---
WS: [id number] DEXA (DUAL ENERGY X-RAY ABSORPTIOMETRY) Bone mineral density was performed using a Entasso machine. HISTORY: post-menopausal COMPARISON: None available. Lumbar spine BMD (L1-L4): 1.363 g/cm2 T score: 1.5 Z score: 3.2 Left forearm BMD: 0.570 g/cm2. T score: -3.5 Z score: -1.3 Increased T score within the lumbar spine is probably falsely elevated due to the sclerosis. XR/XR DEXA axial skeleton* 14508 IMPRESSION: OSTEOPOROSIS based upon the WHO classification for females.
== END 2022-09-04 14:59 | disposition home or self-care (01) ==
LOC: RAD 15:00
PROVIDERS: PCP Family Medicine; Visit Provider Family Medicine
DX: Z78.0 Asymptomatic menopausal state (principal); M81.0 Age-related osteoporosis without current pathological fracture
CPT/HCPCS: 77080

== ENCOUNTER → 2022-10-30 11:09 | Outpatient (BNVA) | payer MEDICARE, OTHER, SELFPAY | PROVIDERS: PCP Family Medicine; Visit Provider Specialist | DX: M17.11 Unilateral primary osteoarthritis, right knee (principal); N39.41 Urge incontinence; M21.061 Valgus deformity, not elsewhere classified, right knee; Z96.652 Presence of left artificial knee joint | CPT/HCPCS: 73560; 73565; 99214 ==

== ENCOUNTER → 2022-11-01 11:51 | Outpatient (BNVA) | payer MEDICARE, OTHER, SELFPAY | PROVIDERS: PCP Family Medicine; Visit Provider Family Medicine | DX: N39.41 Urge incontinence (principal); J43.1 Panlobular emphysema | CPT/HCPCS: 81000 ==

== ENCOUNTER 2022-11-11 12:35 | Oncology outpatient (recurring) (ONCR) | payer MEDICARE, OTHER, SELFPAY ==
[2022-11-11 13:12] LABS: Basophils # 0.2 10^3/uL (0.0-0.1); Basophils % 1.9 %; Eosinophils # 0.1 10^3/uL (0.0-0.8); Eosinophils % 1.1 %; Hematocrit 40.2 % (37.0-47.0); Hemoglobin 11.9 g/dL (11.5-15.3); Lymphocytes # 1.5 10^3/uL (0.8-4.8); Lymphocytes % 13.9 %; Mean Corpuscular HGB Conc 29.6 g/dL (30.0-36.0); Mean Corpuscular Hemoglobin 26.9 pg (28.0-34.0); Mean Platelet Volume 10.5 fL (7.4-10.4); Monocytes # 0.8 10^3/uL (0.2-0.9); Monocytes % 6.9 %; Neutrophils # 8.25 10^3/uL (1.8-7.7); Neutrophils % 75.2 %; Nucleated Red Blood Cells % 0 %; Platelet Count 899 10^3/cmm (130-400); Red Blood Count 4.42 10^6/uL (4.1-5.3); Red Cell Distribution Width 18.6 % (12.1-15.1)
[2022-11-11 13:33] LABS: Alanine Aminotransferase 6 U/L (0-33); Albumin Level 4.1 g/dL (3.5-5.2); Alkaline Phosphatase 92 U/L (35-105); Anion Gap 16.4 (5-19); Aspartate Amino Transferase 19 U/L (0-32); Blood Urea Nitrogen 16 mg/dL (8-23); Calcium 9.1 mg/dL (8.5-10.5); Carbon Dioxide 25 mmol/L (22-29); Chloride 101 mmol/L (98-107); Globulin 2.2 g/dL (1.3-4.6); Glucose 84 mg/dL (65-115); Lactate Dehydrogenase 344 U/L (135-214); Osmolality Calculated 284 mOsm/kg (285-295); Potassium 5.4 mmol/L (3.5-5.1); Sodium 137 mmol/L (136-145); Total Bilirubin 0.3 mg/dL (0.15-1.2); Total Protein 6.3 g/dL (6.6-8.7)
[2022-11-11 17:27] LABS: Charge for UA Resulting for Rev
[2022-11-11 17:43] LABS: Bilirubin Urine Neg (Negative); Blood Urine Neg (Negative); Glucose Urine UA Norm (Normal); Ketones Urine Negative (Negative); Nitrate Urine Negative (Negative); Protein Urine Neg (Negative); Urine Appearance Clear (CLEAR); Urine Color Yellow (Yellow); pH Urine 8 (5-7)
[2022-11-11 17:44] LABS: Leukocyte Esterase Urine Negative (Negative); Urobilinogen Urine Neg (Negative)
[2022-11-11 18:10] LABS: Add Urine Microscopic? NO; Sulfosalicylic Acid Urine Negative (Negative)
== END 2022-11-26 23:59 | disposition home or self-care (01) ==
LOC: ONCMED 12:35
PROVIDERS: Nurse Practitioner Family; PCP Family Medicine; Visit Provider Internal Medicine Medical Oncology
DX: D47.3 Essential (hemorrhagic) thrombocythemia (principal); R30.0 Dysuria; R19.7 Diarrhea, unspecified; R12 Heartburn; J44.9 Chronic obstructive pulmonary disease, unspecified; M25.561 Pain in right knee; M54.50 Low back pain, unspecified; G89.29 Other chronic pain; K13.79 Other lesions of oral mucosa; Z87.891 Personal history of nicotine dependence; Z79.64 Long term (current) use of myelosuppressive agent; T45.1X5A Adverse effect of antineoplastic and immunosuppressive drugs, initial encounter
CPT/HCPCS: 36415; 80053; 81003; 83615; 85025; 99214

== ENCOUNTER 2022-11-12 11:34 | Outpatient (CLI) | payer MEDICARE, OTHER, SELFPAY ==
--- NOTE | 2022-11-12 11:30 | CT_ITS ---
WS: [id number] CT RIGHT KNEE, NONCONTRAST TECHNIQUE: Noncontrast CT of the RIGHT knee to include the RIGHT hip and ankle. [facility] CLINICAL INFORMATION: surgery DLP: 972.[address] scans at [facility] use at least one of these dose optimization techniques: automated e xposure control; mA and/or kV adjustment per patient size (includes targeted exams where dose is matc hed to clinical indication); or iterative reconstruction. FINDINGS: Intramedullary yaritza and screw fixation RIGHT hip. Plate and screw fixation distal RIGHT fibula. LEFT T NARANJO. LEFT TKA. Moderate degenerative arthritis RIGHT hip. Normal visualized RIGHT pubic rami. Advanced degenerative narrowing medial joint compartment with zskq-ol-baqf articulation. Hypertrophic changes along the christin nt line. Small moderate suprapatellar effusion. Vascular calcification. Hypertrophic patella. CT/CT knee RT wo con* 12917 IMPRESSION: Images obtained for preoperative purposes.
== END 2022-11-12 11:35 | disposition home or self-care (01) ==
LOC: RAD 11:35
PROVIDERS: PCP Family Medicine; Visit Provider Specialist
DX: M17.11 Unilateral primary osteoarthritis, right knee (principal)
CPT/HCPCS: 73700

== ENCOUNTER 2022-11-14 05:50 | Outpatient (CLI) | payer MEDICARE, OTHER, SELFPAY | END 2022-11-14 05:51 | disposition home or self-care (01) | LOC: RT 11-20 05:52 | PROVIDERS: PCP Family Medicine; Visit Provider Specialist | DX: Z13.6 Encounter for screening for cardiovascular disorders (principal); R94.31 Abnormal electrocardiogram [ECG] [EKG] | CPT/HCPCS: 93005 ==

== ENCOUNTER 2022-11-20 12:03 | Observation (INO) | payer MEDICARE, OTHER, SELFPAY ==
--- NOTE | 2022-11-14 13:17 | ECG_ITS ---
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 Measurements Intervals [place] Rate: 71 P: 64 NM: 158 QRS: 32 QRSD: 84 T: 48 QT: 405 QTc: 441 Interpretive Statements SINUS RHYTHM WITH FREQUENT SUPRAVENTRICULAR PREMATURE COMPLEXES LOW QRS VOLTAGE IN PRECORDIAL LEADS [QRS DEFLECTION < 1.0 mV IN CHEST LEADS] ABNORMAL RHYTHM ECG Compared to ECG 07/09/2022 10:53:52 Intraventricular conduction delay no longer present Electronically Signed On 11-14-2022 20:15:14 ARC CUTTER by William Ruffin M.D. [id number]
[2022-11-14 13:28] VITALS: BMI 22.7
--- NOTE | 2022-11-14 14:03 | P.ANESASSM_ITS ---
Pre-Anesthetic Assessment Height/Weight: Height 1.7 m Weight 65.771 kg Preop Diagnosis: Degenerative osteoarthritis left knee Operation Date: 11/20/22 07:00 Proposed Procedures p RIGHT TOTAL KNEE ARTHROPLAST WITH CLOVIS GUIDANCE 48212,M17.10(Right) - Neyda Castillo MD Familial anesthetic complications: none Was Beta Liane taken within 24 hours: N/A Was Clonidine taken within 24 hours: N/A Social No alcohol and No tobacco Exam alert, oriented x 3, clear to auscultation bilaterally and regular rate & rhythm Airway Submandibular: within normal limits Cervical ROM: within normal limits Mallampati: Class II Dentition: chipped Pulmonary Chronic Obstructive Pulmonary Disease PulmHTN CV/HEM Deep Vein Thrombosis (PE) Anticoagulated GI Gastroesophageal Reflux Disease and Peptic Ulcer Disease Metabolic Hyperlipidemia [facility] [place] Osteoarthritis/DJD Neuropsych Anxiety and Depression Anesthetic Plan ASA status: 3 Anesthesia: Regional (specify below) (SAB with adductor blk) Medications/Allergies Home Medications Medication Instructions Recorded Confirmed Last Taken Type cholecalciferol (vitamin D3) 25 25 mcg PO DAILY 08/20/21 11/14/22 11/14/22 H istory mcg (1,000 unit) capsule magnesium carb,citrate,oxide 300 mg PO DAILY 08/20/21 11/14/22 11/14/22 History (Magnesium Complex) milk thistle seed extract 300 mg PO DAILY 08/20/21 11/14/22 11/14/22 History utnwhejdabwp-qinrgsop-njtazh tablet 1 tab PO DAILY 08/20/21 11/14/22 11/14/22 History vitamins A,C,O-bqus-hgopvy 14,320 1 cap PO BID 08/20/21 11/14/22 11/14/22 History unit-226 mg-200 unit capsule (PreserVision AREDS) rivaroxaban 20 mg tablet (Xarelto) 20 mg PO DAILY 90 days #90 tabs 12/06/21 11/14/22 11/14/22 Rx tiotropium bromide 18 mcg capsule 1 cap inhalation DAILY 30 days #30 04/18/22 11/14/22 11/14/22 Rx with inhalation device (Spiriva inhalations with HandiHaler) hydroxyurea 500 mg capsule 500 mg PO .COMPLEX 90 days #96 caps 04/24/22 11/14/22 11/14/22 Rx oxycodone 10 mg tablet 10 mg PO Q6H PRN pain 30 days #120 05/16/22 11/14/22 11/14/22 Rx tabs DME: Jose #1 ea 07/31/22 11/01/22 Unknown Rx denosumab 60 mg/mL subcutaneous 60 mg SUBCUT .every 6 months #1 mL 09/06/22 11/14/22 Unknown Rx syringe (Prolia) bupropion HCl 150 mg 24 hr tablet, 150 mg PO QAM #90 tabs 09/12/22 11/14/22 11/14/22 Rx extended release (Wellbutrin XL) calcium carbonate 600 mg calcium 600 mg PO BID 09/12/22 11/14/22 11/14/22 History (1,500 mg) tablet (Calcium) citalopram 20 mg tablet (Celexa) 30 mg PO DAILY #45 tabs 10/01/22 11/14/22 11/14/22 Rx oxybutynin chloride 5 mg tablet See Rx Instructions PO BID #90 tabs 10/07/22 11/14/22 11/14/22 Rx mirtazapine 15 mg tablet See Rx Instructions .Route 10/30/22 11/14/22 11/13/22 Rx .COMPLEX #45 tabs fluticasone propionate 230 2 puff inhalation Q12H #12 grams 11/05/22 11/14/22 11/14/22 Rx mcg-salmeterol 21 mcg/actuation HFA inhaler (Advair HFA) acyclovir 800 mg tablet See Rx Instructions .Route 11/08/22 11/14/22 Unknown Rx .COMPLEX #30 tabs budesonide 3 mg 6 mg PO DAILY 11/11/22 11/14/22 11/14/22 History capsule,delayed,extended release gabapentin 400 mg capsule 400 mg PO TID 11/14/22 11/14/22 11/14/22 History pantoprazole 40 mg tablet,delayed 40 mg PO DAILY 11/14/22 11/14/22 11/14/22 History release Allergies Allergy/AdvReac Type Severity Reaction Status Date / Time No Known Allergies Allergy Verified 11/11/22 14:19 PFSH Anesthesia Medical History Chronic pain syndrome Congestive heart failure COPD (chronic obstructive pulmonary disease) Depression Dyslipidemia Essential thrombocythemia Hx of pulmonary embolus Lumbosacral spondylolysis Macular degeneration of both eyes Osteoarthritis Peptic ulcer disease Pulmonary HTN Scoliosis Valvular heart disease Surgical History History of ankle surgery ORIF for right ankle fracture History of total left hip replacement Hx of tonsillectomy S/P ORIF (open reduction internal fixation) fracture (02/12/22) ORIF for right intertrochanteric hip fracture with associated subcapital hip fracture Status post total left knee replacement not using cement Diagnosis: Severe degenerative osteoarthritis left knee with valgus deformity and slight flexion contracture Procedure done: Clovis assisted left total knee arthroplasty Implants: The Osper total knee system with a size 3 triathlon beaded cruciate retaining femur left, a triathlon titanium tibial component size 3 beaded, a triathlon X3 tibial bearing CS insert size 3 X 13 mm and a beaded triathlon titanium asymmetric patella size 35 x 10 mm Family History Father Alcoholic cirrhosis of liver Other Dementia Hyperlipidemia Denies family history of Diabetes CAD (coronary artery disease) Clotting disorder Psychiatric illness Chronic kidney disease (CKD) Suicide Anesthesia complication Bleeding disorder Lung disease Cancer Hypertension Stroke Social History Smoking and tobacco status: former smoker Alcohol intake: never Lives independently: Yes Household members: none Marital status: / Current occupational status: retired Data Anesthesia 11/14/22 13:42 11/14/22 13:42 Cardiac Studies: No Data to Display
[2022-11-14 14:06] LABS: Basophils # 0.2 10^3/uL (0.0-0.1); Basophils % 1.7 %; Eosinophils # 0.1 10^3/uL (0.0-0.8); Eosinophils % 1.2 %; Hematocrit 41.2 % (37.0-47.0); Hemoglobin 12.2 g/dL (11.5-15.3); Lymphocytes % 9.3 %; Mean Corpuscular HGB Conc 29.6 g/dL (30.0-36.0); Mean Corpuscular Hemoglobin 27.5 pg (28.0-34.0); Mean Corpuscular Volume 92.8 fl (81-99); Mean Platelet Volume 10.4 fL (7.4-10.4); Monocytes # 0.7 10^3/uL (0.2-0.9); Monocytes % 6.3 %; Neutrophils # 8.91 10^3/uL (1.8-7.7); Neutrophils % 80.7 %; Nucleated Red Blood Cells % 0 %; Platelet Count 808 10^3/cmm (130-400); Red Blood Count 4.44 10^6/uL (4.1-5.3)
[2022-11-14 14:31] LABS: Alanine Aminotransferase 7 U/L (0-33); Albumin Level 4.4 g/dL (3.5-5.2); Alkaline Phosphatase 91 U/L (35-105); Anion Gap 14.6 (5-19); Aspartate Amino Transferase 10 U/L (0-32); Blood Urea Nitrogen 23 mg/dL (8-23); Calcium 9.4 mg/dL (8.5-10.5); Carbon Dioxide 28 mmol/L (22-29); Chloride 98 mmol/L (98-107); Globulin 2.2 g/dL (1.3-4.6); Glucose 81 mg/dL (65-115); Osmolality Calculated 285 mOsm/kg (285-295); Potassium 4.6 mmol/L (3.5-5.1); Sodium 136 mmol/L (136-145); Total Bilirubin 0.4 mg/dL (0.15-1.2); Total Protein 6.6 g/dL (6.6-8.7)
[2022-11-20] VITALS (25 sets, daily range): BP systolic 86–124; BP diastolic 43–78; PULSE 60–78; RESP 14–18; TEMP 36.5–37.1; O2SAT 90–99; BMI 23.3
[2022-11-20] MEDS: acetaminophen 1,000 MG/100 ML PIGGYBACK 400 MG IV ×3 (06:12→22:18)
[2022-11-20] MEDS: sodium chloride 0.9% 1,000 ML 30 ML IV (06:12)
[2022-11-20] MEDS: CELEcoxib 200 mg Capsule 400 MG PO (06:13)
--- NOTE | 2022-11-20 06:37 | P.ANESUD_ITS ---
Pre-Anesthetic Update Pre-Anesthetic Assessment: Date of Surgery/Procedure: 11/20/22 Preop Alison gnosis: Primary osteoarthritis right knee with valgus Proposed Procedure: Operation Date: 11/20/22 07:00 Proposed Procedures p RIGHT TOTAL KNEE ARTHROPLAST WITH GURINDER GUIDANCE 28012,M17.10(Right) - Neyda Castillo MD Any changes to Pre-Anesthetic Assessment?: No Last Intake: Intake Last Liquid Date 11/19/22 Last Liquid Time 23:00 Last Solid Date 11/19/22 Last Solid Time 20:00 Vitals: Temperature 98.7 F 11/20/22 05:51 Temperature Source Temporal Artery S can 11/20/22 05:51 Pulse Rate 67 11/20/22 05:51 Pulse Rhythm 11/20/22 05:59 Pulse Strength 3+ Normal 11/20/22 05:59 Respiratory Rate 18 11/20/22 05:51 Blood Pressure 124/78 11/20/22 05:51 Blood Pressure Yadira n 93 11/20/22 05:51 Pulse Oximetry 95 11/20/22 05:51 Oxygen Delivery Me thod 11/20/22 05:59 Exam: Pre-Anes Outpt Exam: alert, oriented x 3, clear to auscultation bilaterally and regular rate & rhythm Cardiac Studies: No Data to Display
--- NOTE | 2022-11-20 07:00 | P.HPUD_ITS ---
Surgery/Procedure H&P Update DATE OF PROCEDURE: November 20, 2022 DATE H&P PERFORMED: 10/30/22 H&P UPDATE INFORMATION: I have reviewed H&P completed within last 30 days, I have examined patient prior to procedure, No changes to prior documentation and H&P is in [facility] EMR on date indicated PREOP DIAGNOSIS: Primary osteoarthritis right knee with valgus PLANNED PROCEDURE: Operation Date: 11/20/22 07:00 Proposed Procedures p RIGHT TOTAL KNEE ARTHROPLAST WITH GURINDER GUIDANCE 62945,M17.10(Right) - Neyda Castillo MD Related Problem List Diagnoses (1) Osteoarthritis of right knee: Qualifiers: Osteoarthritis type: primary Qualified Code(s): M17.11 - Unilateral primary osteoarthritis, right knee (2) Valgus deformity, not elsewhere classified, right knee:
--- NOTE | 2022-11-20 07:20 | ANES.PROC ---
Anesthesia Procedures Procedure/Date: 11/20/22 Nerve Block ^: Nerve Block 1: Main Anesthesia: spinal anesthesia block Time Out Performed: Yes Consent: requested by attending/covering physician, from patient, risks and benefits reviewed and patient agrees to proceed Nerve block location: adductor canal (R) Anesthesia monitors applied: pulse oximetry, EKG, BP cuff and oxygen Nerve block position: supine Anesthetic Used: ropivicaine 0.5% (30 ml) and with decadron ( 4 mg) Ultrasound used to: recognize landmarks and visualize and ID femerol nerve Nerve Stimulator Used?: No Interscalene/Femoral BLK: 4 stimuplex 21 g needle used for position and inplane approach, visualize local anesthetic spread and no vascular puncture identified Injection: neg aspiration of heme Patient Tolerated Procedure: well Complications: none Additional Comments: Performed by Salma Fuller CRNA
[2022-11-20] MEDS: ceFAZolin 2,000 MG in sodium chloride 0.9% (plus) 50 ML 100 MG IV ×3 (07:24→22:47)
--- NOTE | 2022-11-20 07:24 | ANES.PROC ---
Anesthesia Procedures Procedure/Date: 11/20/22 genicular, pop plexus nerve blocks Procedure Narrative: verbal communication maintained thrughout procedure. direct needle visualization via ultrasound. no injection resistance. patient tolerated well. Nerve Block ^: Nerve Block 1: Main Anesthesia: spinal anesthesia block Time Out Performed: Yes Consent: requested by attending/covering physician, risks and benefits reviewed and patient agrees to proceed Nerve block location: other (pop plexus, genicular) Anesthesia monitors applied: pulse oximetry, EKG and BP cuff Nerve block position: semi sitting Anesthetic Used: ropivicaine 0.5% and other (20 ml for pop plexus, 15 ml geniculars) Amount of anesthesia used (mL): 40 Ultrasound used to: recognize landmarks and visualize and ID femerol nerve Nerve Stimulator Used?: No Interscalene/Femoral BLK: 4 stimuplex 21 g needle used for position and inplane approach, visualize local anesthetic spread and no vascular puncture identified Injection: neg aspiration of heme Patient Tolerated Procedure: well and no complications Complications: none
[2022-11-20] MEDS: vancomycin 1,000 MG SDV 1000 MG XX (08:14)
[2022-11-20] MEDS: ceFAZolin 1,000 mg SDV 2000 MG IRRIGATION (08:16)
[2022-11-20] MEDS: tranexamic acid 1,000 mg/10mL SDV 1000 MG IV (09:41)
--- NOTE | 2022-11-20 09:56 | XR_ITS ---
WS: [id number] Exam: XR knee RT 1-2V [id number] Date/Time of Exam: 11/20/2022 9:56 AM Reason For Exam: S/P Right TKA Comparison 10/30/2022. Right total knee prosthesis is in place in excellent position. Postoperative changes in the adjacent soft tissues. Anterior surgical skin clips. XR/XR knee RT 1-2V [id number] IMPRESSION: 1. Right total knee replacement in excellent position.
--- NOTE | 2022-11-20 09:56 | PM.OP ---
Operative Report Date of procedure: November 20, 2022 Pre-op diagnosis: Severe degenerative osteoarthritis right knee with valgus deformity and slight flexion contracture Post-op diagnosis: Severe degenerative osteoarthritis right knee with valgus deformity and slight flexion contracture Post-op findings: Severe degenerative osteoarthritis with valgus and large osteophytes Procedure done: Clovis assisted left total knee arthroplasty Implants: The [place] total knee system with a size 3 triathlon beaded cruciate retaining femur right, a triathlon titanium tibial component size 3 beaded, a triathlon X3 tibial bearing CS insert size 3 X 11 mm and a beaded triathlon titanium asymmetric patella size 32 x 10 mm Pathology: Bone, disposed of Surgeon: Neyda Castillo Signal Operator Linguist[facility] Anesthesia: MAC (With spinal, ASA 3. Supplemental adductor and geniculate blocks.) Estimated blood loss (mL): 350 Tourniquet time (min): 0 IV fluids (mL): 1,200 Urine output (mL): 1,000 Complications: None Findings: Severe degenerative osteoarthritis with valgus deformity, slight flexion contracture, large osteophytes, and significant cartilage loss Condition: stable Disposition: PACU (Then to floor for postoperative rehabilitation and pain management) Brief History: This is an established 72 year old female patient here today for right total knee arthroplasty secondary to valgus deformity and severe degenerative osteoarthritis. Patient states that she has had pain to the knee for years. Patient describes the pain to the anterior knee. Patient states that the knee snaps, pop, grinds, gives out, feels unstable. Patient states that the pain and instability keeps her from doing her daily activities. Patient utilizes a cane for ambulation.? Patient previously had her left knee arthroplasty in June of last year. She is doing well from this and wishes to proceed. Questions were answered and consents were signed.. Procedure: The patient was brought to the operating theater, and after undergoing adequate spinal anesthesia supplemented with adductor canal and geniculate block and MAC, ASA 3, the right lower extremity was prepped with Dura-Prep and draped in usual fashion following placement of a tourniquet high on the leg. The leg was then draped free. Decision was made not to elevate tourniquet, but it was available.? A surgical pause was performed. At the time of the surgical pause, we confirmed the site and side of surgery. Additionally, we confirmed the appropriate and timely administration of preoperative antibiotics, Ancef 2 g and Transexemic acid 1 g.? The availability of equipment was confirmed, and the patient's identity was verbalized as well.? An additional transexemic acid 1 g was given at the end of the surgical procedure as well. Following the surgical pause, an incision was made centering over the patella continuing proximally and distally as necessary to allow access to the knee joint. Dissection continued through skin and soft tissues using a scalpel. Hemostasis was obtained using electrocautery. The skin incision was followed by a median parapatellar arthrotomy. The leg was extended and the patella was able to be displaced laterally.? Appropriate arrays and markers were placed in appropriate position for use of the Clovis.? Preoperative planning had been accomplished and discussed in detail with the [facility] home office representative.? Intraoperative mapping of the femur and tibia was accomplished after the arrays were placed.? Internal markers were also placed.? Once we had accomplished the Clovis mapping, we began the appropriate resections for placement of the prosthesis.? The plan was for a cruciate retaining left total knee arthroplasty. Once appropriate mapping had been accomplished retraction was established using the Clovis leg positioner and retractors.? The knee was evaluated.? There was a significant valgus deformity with slight flexion contracture.? There is also osteopenic changes.? There were large osteophytes circumferentially about the trochlear groove as well as the patella and medial tibial plateau.? Appropriate bone resection was accomplished using the Clovis.? This started with the femur and subsequently tibial resection was accomplished.? Osteophytes were removed prior to this portion of the procedure.? We had performed a minimal medial release at the beginning of the procedure to allow for placement of the array.? Proximal tibia was evaluated and it was felt that appropriate size for the tibia was a size 3 which matched the femoral component. A trial reduction was accomplished after osteophytes have been removed as well as the medial and lateral menisci.? We had removed the anterior cruciate ligament at the beginning of the case and preserved the posterior cruciate ligament.? Trial reduction was accomplished with a size 3 femoral cruciate retaining component and a size 3 CS tibial bearing insert which was 11 mm in thickness.? With this, we had excellent stability, full extension, and appropriate alignment.? Trial components were removed after the femur had been drilled.? Prior to removal of the tibial tray which had been pinned in position with appropriate rotation as determined by the Clovis plan, we broached the tibia.? Subsequently, the 4 drill holes were made for the prosthetic component.? All trial components had been removed, and the wound was irrigated.? Plans were made for insertion of the prosthetic components.? Prior to this, the patella was manually prepared.? After resection of the articular surface with the jogging system, it was measured and measured a 32 mm patella.? We resected approximately 9 mm of patella and patellar height was restored with the patellar component. Once again, the wound was irrigated.? The Tritanium tibia was impacted into position.? The beaded femur was then impacted into position in a cementless fashion. The CS tibial insert was placed prior to placement of the femoral component. The patella was pressed into position with a patellar clamp.? Exparel was injected about the components deep and superficially.? The knee was then copiously irrigated with betadine and saline and suctioned dry. Attention was then directed to closure. Closure was accomplished with 0 Vicryl in the fascial tissues.? This was followed by Surgiflo and vancomycin powder.? Following this, a 2-0 Monocryl was used in the subcutaneous tissues, and the skin was closed with skin keagan.? Care was taken to assure an excellent subcutaneous as well as skin closure.? A sterile dressing was then placed consisting of Dermabond Prineo, Telfa, OpSite, sterile soft roll including over the foot, and an Hubert wrap. The patient was returned the Recovery Room in a satisfactory condition. X-rays were obtained and reviewed there.? The patient will be discharged to the floor for postoperative rehabilitation and pain management. Related Problem List Diagnoses (1) Osteoarthritis of right knee: (2) Valgus deformity, not elsewhere classified, right knee:
[2022-11-20] MEDS: oxyCODONE 5 mg IR Tab/Cap 10 MG PO ×3 (12:33→20:14)
[2022-11-20] MEDS: chlorhexidine gluconate 0.12% Btl 473 mL 30 ML MUCOUS MEM ×3 (13:41→20:14)
--- NOTE | 2022-11-20 13:51 | ANE.PACU2 ---
Inpatient post-anesthesia follow up: Airway intact: Yes Vital signs: Temperature 98.3 F Pulse Rate 64 Respiratory Rate 18 Blood Pressure 108/71 Pulse Oximetry 97 Oxygen Delivery Me thod Room Air Oxygen Flow Rate 2 Fraction of Inspir ed Oxygen Hydration adequate: Yes Nausea and vomiting: No Pain level: 1 Mental status: Baseline
[2022-11-20] MEDS: gabapentin 400 mg Capsule PO ×2 (14:09→20:13)
[2022-11-20] MEDS: albuterol 2.5 mg/3 mL Neb INHALATION ×2 (15:12→19:43)
[2022-11-20] MEDS: ipratropium 0.5 mg/2.5 mL Neb INHALATION ×2 (15:13→19:43)
[2022-11-20] MEDS: calcium carbonate 500 mg Chew Tablet 1000 MG PO (17:09)
[2022-11-20] MEDS: iron polysaccharide complex 150 mg Capsule PO (17:09)
[2022-11-20] MEDS: sennosides-docusate Tablet 2 TAB PO (17:09)
[2022-11-20] MEDS: oxybutynin 5 mg Tablet 10 MG PO (17:10)
[2022-11-20] MEDS: mupirocin oint 22 gm 1 APPLIC NASAL (17:11)
[2022-11-20] MEDS: CELEcoxib 200 mg Capsule PO (17:11)
[2022-11-20] MEDS: budesonide 0.5 mg/2 mL Neb INHALATION (19:44)
[2022-11-20] MEDS: mirtazapine 15 mg Tablet PO (20:13)
[2022-11-21 03:00] VITALS: BP 105/65; PULSE 74; RESP 17; TEMP 36.6; O2SAT 93
[2022-11-21 04:58] VITALS: RESP 18; O2SAT 93
[2022-11-21] MEDS: oxyCODONE 5 mg IR Tab/Cap 10 MG PO ×2 (04:58→08:58)
[2022-11-21] MEDS: CELEcoxib 200 mg Capsule PO (05:01)
[2022-11-21] MEDS: acetaminophen 1,000 MG/100 ML PIGGYBACK 400 MG IV (05:01)
[2022-11-21] MEDS: buPROPion XL (24 HR) 150 mg Tablet PO (05:01)
[2022-11-21 05:07] LABS: Basophils # 0.1 10^3/uL (0.0-0.1); Basophils % 0.9 %; Eosinophils # 0.1 10^3/uL (0.0-0.8); Eosinophils % 1.1 %; Hemoglobin 9.9 g/dL (11.5-15.3); Lymphocytes # 0.4 10^3/uL (0.8-4.8); Lymphocytes % 5.7 %; Mean Corpuscular HGB Conc 29.1 g/dL (30.0-36.0); Mean Corpuscular Hemoglobin 27.7 pg (28.0-34.0); Monocytes # 0.6 10^3/uL (0.2-0.9); Monocytes % 9.1 %; Neutrophils # 5.33 10^3/uL (1.8-7.7); Neutrophils % 82.6 %; Nucleated Red Blood Cells % 0 %; Platelet Count 530 10^3/cmm (130-400); Red Blood Count 3.58 10^6/uL (4.1-5.3); Red Cell Distribution Width 19.6 % (12.1-15.1); White Blood Count 6.5 10^3/uL (4.0-10.0)
[2022-11-21 05:18] LABS: Anion Gap 13.9 (5-19); Blood Urea Nitrogen 21 mg/dL (8-23); Calcium 8.5 mg/dL (8.5-10.5); Carbon Dioxide 26 mmol/L (22-29); Chloride 103 mmol/L (98-107); Glucose 120 mg/dL (65-115); Osmolality Calculated 290 mOsm/kg (285-295); Potassium 4.9 mmol/L (3.5-5.1); Sodium 138 mmol/L (136-145)
[2022-11-21] MEDS: ceFAZolin 2,000 MG in sodium chloride 0.9% (plus) 50 ML 100 MG IV (08:03)
[2022-11-21] MEDS: aspirin 325 mg EC Tablet PO (08:11)
[2022-11-21] MEDS: sennosides-docusate Tablet 2 TAB PO (08:11)
[2022-11-21] MEDS: citalopram 20 mg Tablet 30 MG PO (08:11)
[2022-11-21] MEDS: cholecalciferol (vitamin D3) 1,000 unit Tablet 1000 UNIT PO (08:12)
[2022-11-21] MEDS: iron polysaccharide complex 150 mg Capsule PO (08:12)
[2022-11-21] MEDS: multivitamin therapeutic Tablet 1 TAB PO (08:12)
[2022-11-21] MEDS: pantoprazole DR 40 mg Tablet PO (08:12)
[2022-11-21] MEDS: rivaroxaban 10 mg Tablet 20 MG PO (08:12)
[2022-11-21] MEDS: oxybutynin 5 mg Tablet PO (08:12)
[2022-11-21] MEDS: gabapentin 400 mg Capsule PO (08:12)
[2022-11-21] MEDS: calcium carbonate 500 mg Chew Tablet 1000 MG PO (08:12)
[2022-11-21 08:21] VITALS: BP 106/65; PULSE 72; RESP 19; TEMP 36.6; O2SAT 95
[2022-11-21 08:58] VITALS: RESP 18
[2022-11-21] MEDS: chlorhexidine gluconate 0.12% Btl 473 mL 30 ML MUCOUS MEM (08:58)
[2022-11-21] MEDS: mupirocin oint 22 gm 1 APPLIC NASAL (09:00)
[2022-11-21] MEDS: ibuprofen 800 mg tablet PO (10:17)
[2022-11-21] MEDS: hydroxyurea 500 mg Capsule PO (10:18)
--- NOTE | 2022-11-21 12:09 | P.DS_ITS ---
Discharge Providers Date of Admission: 11/20/22 12:03 Date of Discharge: November 21, 2022 Attending Provider at Admission: Neyda Castillo MD Attending Provider at Discharge: Neyda Castillo MD Primary Care Provider: Luli Anna DO Diagnoses at Discharge Discharge Diagnosis (1) Osteoarthritis of right knee: Status: Acute Qualifiers: Osteoarthritis type: primary Qualified Code(s): M17.11 - Unilateral primary osteoarthritis, right knee Permanent problem details: Date of procedure: November 20, 2022 Diagnosis: Severe degenerative osteoarthritis right knee with valgus deformity and slight flexion contracture Procedure done: Clovis assisted left total knee arthroplasty Implants: The ebridge total knee system with a size 3 triathlon beaded cruciate retaining femur right, a triathlon titanium tibial component size 3 beaded, a triathlon X3 tibial bearing CS insert size 3 X 11 mm and a beaded triathlon titanium asymmetric patella size 32 x 10 mm (2) Valgus deformity, not elsewhere classified, right knee: Status: Acute Reason for Visit Reason for Visit: M17.10 Brief History: This is an established 72 year old female patient here today for right total knee arthroplasty secondary to valgus deformity and severe degenerative osteoarthritis. Patient states that she has had pain to the knee for years. Patient describes the pain to the anterior knee. Patient states that the knee snaps, pop, grinds, gives out, feels unstable. Patient states that the pain and instability keeps her from doing her daily activities. Patient utilizes a cane for ambulation.? Patient previously had her left knee arthroplasty in June of last year.? She is doing well from this and wishes to proceed.? Questions were answered and consents were signed. Hospital Course Hospital Course This patient was admitted following same-day surgery for right total knee arthroplasty with Clovis guidance. The patient was admitted under observation status, and on the first postoperative day, she was comfortable with good pain control. She was working with physical therapy. She was able to perform activities of daily living and was felt safe for discharge to home. Therefore, the patient was discharged home to follow-up with me in the office as scheduled. Physical Exam Const: COMMON NORMALS: no acute distress, average body habitus, patient oriented x3 and alert GENERAL APPEARANCE: cooperative and comfortable ORIENTATION/CONSCIOUSNESS: Yes awake HENMT: COMMON NORMALS: normocephalic and atraumatic HEAD & SCALP: normocephalic and atraumatic Eye: GENERAL EYE: appearance normal, both eyes and all related structures Chest: COMMONS NORMALS: normal inspection of the chest Resp: COMMON NORMALS: normal respiratory effort EFFORT & INSPECTION: Yes able to speak in complete sentences and Yes symmetric chest movement Extremity: RIGHT LOWER EXTREMITY: Yes knee joint (Minimal to no ecchymosis or swelling) Right knee: Yes palpation (Minimal tenderness), Yes ROM (Able to straight leg raise) and Yes neurovascular exam (Intact distally with no evidence of DVT) Neuro: COMMON NORMALS: patient oriented x3 SENSORIUM/ORIENTATION: Yes alert Psych: COMMON NORMALS: mental status grossly normal APPEARANCE: Yes grossly normal ATTITUDE: Yes calm and Yes engaged ATTENTION/CONCENTRATION: Yes attention grossly intact Skin: COMMON NORMALS: no rashes or lesions noted GENERAL SKIN EXAM: no rashes or lesions noted Urinary Catheter Management: Melendez: Cath Placed During This Visit: yes Reason for Continuing Indwelling Catheter: Required Immobilization for Trauma or Surgery or Anesthesia Urinary Catheter Date of Insertion: 11/20/22 Urinary Catheter Time of Insertion: 07:45 Discharge Data Studies Completed and Pending Completed Studies During Hospitalization Category Date Time Status XR knee RT 1-2V 67434 Urgent Exams 11/20/22 09:56 Completed Radiology Impressions Knee X-Ray 11/20/22 09:56 IMPRESSION: 1. Right total knee replacement in excellent position. Laboratory Results WBC 6.5 10^3/uL (4.0-10.0) 11/21/22 04:52 RBC 3.58 10^6/uL (4.1-5.3) L 11/21/22 04:52 Hgb 9.9 g/dL (11.5-15.3) L 11/21/22 04:52 Hct 34.0 % (37.0-47.0) L 11/21/22 04:52 MCV 95.0 fl (81-99) 11/21/22 04:52 MCH 27.7 pg (28.0-34.0) L 11/21/22 04:52 MCHC 29.1 g/dL (30.0-36.0) L 11/21/22 04:52 RDW 19.6 % (12.1-15.1) H 11/21/22 04:52 Plt Count 530 10^3/cmm (130-400) H 11/21/22 04:52 MPV 10.0 fL (7.4-10.4) 11/21/22 04:52 Neut % (Auto) 82.6 % 11/21/22 04:52 Lymph % (Auto) 5.7 % 11/21/22 04:52 [place] % (Auto) 9.1 % 11/21/22 04:52 Eos % (Auto) 1.1 % 11/21/22 04:52 Baso % (Auto) 0.9 % 11/21/22 04:52 Neut # (Auto) 5.33 10^3/uL (1.8-7.7) 11/21/22 04:52 Lymph # (Auto) 0.4 10^3/uL (0.8-4.8) L 11/21/22 04:52 [place] # (Auto) 0.6 10^3/uL (0.2-0.9) 11/21/22 04:52 Eos # (Auto) 0.1 10^3/uL (0.0-0.8) 11/21/22 04:52 Baso # (Auto) 0.1 10^3/uL (0.0-0.1) 11/21/22 04:52 Nucleated RBC % (auto) 0 % 11/21/22 04:52 Nucleated RBCs # 0.0 /100WBC 11/21/22 04:52 Sodium 138 mmol/L (136-145) 11/21/22 04:52 Potassium 4.9 mmol/L (3.5-5.1) 11/21/22 04:52 Chloride 103 mmol/L (98-107) 11/21/22 04:52 Carbon Dioxide 26 mmol/L (22-29) 11/21/22 04:52 Anion Gap 13.9 (5-19) 11/21/22 04:52 BUN 21 mg/dL (8-23) 11/21/22 04:52 Creatinine 0.9 mg/dL (0.5-0.9) 11/21/22 04:52 GFR Calculation Not Reportable 11/21/22 04:52 Glucose 120 mg/dL (65-115) H 11/21/22 04:52 Calculated Osmolality 290 mOsm/kg (285-295) 11/21/22 04:52 Calcium 8.5 mg/dL (8.5-10.5) 11/21/22 04:52 Total Bilirubin 0.4 mg/dL (0.15-1.2) 11/14/22 13:42 AST 10 U/L (0-32) 11/14/22 13:42 ALT 7 U/L (0-33) 11/14/22 13:42 Alkaline Phosphatase 91 U/L (35-105) 11/14/22 13:42 Total Protein 6.6 g/dL (6.6-8.7) 11/14/22 13:42 Albumin 4.4 g/dL (3.5-5.2) 11/14/22 13:42 Globulin 2.2 g/dL (1.3-4.6) 11/14/22 13:42 Vitals Last Vital Signs Temp 98 F 11/21/22 08:21 Pulse 72 11/21/22 08:21 Resp 18 11/21/22 08:58 BP 106/65 11/21/22 08:21 Pulse Ox 95 11/21/22 08:21 O2 Del Method 11/21/22 08:00 O2 Flow Rate 2 11/20/22 12:00 Discharge Plan Discharge Patient Disposition: Home Health Service Condition: Stable Prescriptions: New acetaminophen 500 mg Tablet 1,000 mg PO Q8H Qty: 0 0RF oxycodone 5 mg Tablet 10 mg PO Q4H PRN (Reason: Severe Pain) 7 Days Qty: 60 0RF Continued kkoclrlxjoca-ifcsxezx-[id number] Tablet 1 tab PO DAILY Magnesium Complex 300 mg magnesium tablet 300 mg PO DAILY cholecalciferol (vitamin D3) 25 mcg (1,000 unit) capsule 25 mcg PO DAILY milk thistle seed extract 300 mg PO DAILY PreserVision AREDS [id number] xaoy-ee-[id number] capsule 1 cap PO BID hydroxyurea 500 mg capsule 500 mg PO .COMPLEX 90 Days Qty: 96 0RF Hold Instructions: Doctor's Order Rx Instructions: 500 mg PO 2 caps on Mon, Weds, Fri 1 caps on Tues, Thurs None on Fri and Friday Spiriva with HandiHaler 18 mcg capsule, w/inhalation device 1 cap inhalation DAILY 30 Days Qty: 30 5RF Rx Instructions: puncture 1 cap using device; one dose = 2 inhalations 340B oxycodone 10 mg tablet 10 mg PO Q6H PRN (Reason: pain) 30 Days Qty: 120 0RF Rx Instructions: Do not fill until 05/24/2022 (DME) DME: Walker Unit See Rx Instructions .Route Qty: 1 0RF Rx Instructions: As directed budesonide 3 mg capsule,delayed,extend.release 6 mg PO DAILY calcium carbonate [Calcium 600] 600 mg calcium (1,500 mg) tablet 600 mg PO BID bupropion HCl [Wellbutrin XL] 150 mg tablet extended release 24 hr 150 mg PO QAM Qty: 90 0RF Xarelto 20 mg tablet 20 mg PO DAILY 90 Days Qty: 90 1RF Rx Instructions: must administer with evening meal Prolia 60 mg/mL syringe 60 mg SUBCUT .every 6 months Qty: 1 1RF citalopram [Celexa] 20 mg tablet 30 mg PO DAILY Qty: 45 1RF Rx Instructions: Please disregard prior rx oxybutynin chloride 5 mg tablet See Rx Instructions PO BID Qty: 90 3RF Rx Instructions: Take one in the AM and 2 at night mirtazapine 15 mg tablet See Rx Instructions .ROUTE .COMPLEX Qty: 45 0RF Dose Instruction: TAKE 1 & 1/2 (ONE & ONE-HALF) TABLETS BY MOUTH ONCE DAILY AT BEDTIME Rx Instructions: TAKE 1 & 1/2 (ONE & ONE-HALF) TABLETS BY MOUTH ONCE DAILY AT BEDTIME Advair HFA 230-21 mcg/actuation HFA aerosol inhaler 2 puff inhalation Q12H Qty: 12 2RF acyclovir 800 mg tablet See Rx Instructions .ROUTE .COMPLEX Qty: 30 0RF Dose Instruction: TAKE 1 TABLET BY MOUTH THREE TIMES DAILY NEEDED FOR COLD SORES Rx Instructions: TAKE 1 TABLET BY MOUTH THREE TIMES DAILY NEEDED FOR COLD SORES gabapentin 400 mg capsule 400 mg PO TID Qty: 90 0RF Rx Instructions: TAKE 1 CAPSULE BY MOUTH three TIMES DAILY pantoprazole 40 mg tablet,delayed release (DR/EC) 40 mg PO DAILY Rx Instructions: TAKE 1 TABLET BY MOUTH EVERY DAY Discharge Orders: Discharge Order (Routine); Ordered 11/21/22 Ordered By: Neyda Castillo Referrals: [facility] [Outside] Neyda Castillo MD [Physician] - 12/05/22 8:45 am Discharge Diet: Advance as tolerated and Usual diet Discharge Activity: Increase activity as tolerated, Limit activity as instructed, Use walker/crutches as instructed and As per PT/OT instructions Patient Instructions: Ibuprofen (By mouth), Oxycodone, Rapid Release (By mouth), Joint Replacement Surgery (GEN), Knee Replacement (GEN), Opioid Safety Activity Restrictions/Additional Instructions: Ice and elevation of right lower extremity. Range of motion, gait training, and strengthening per physical therapy. You may shower and get the dressing wet, but do not soak in a tub. Allow dressing that is in place to come off on its own. Discharge Attestations Time Spent in Discharge Care*: greater than 30 min Specific Discharge Activities: educating patient, educating and/or supporting family/caregiver, documenting/other paperwork and evaluating patient/reviewing data Quality Metrics Clinical Quality Measures [ No reported AMI, CVA or VTE this stay] Coding Level of Care Code Acute Code for Chg Fwd Diagnoses Osteoarthritis of right knee M17.11 Osteoarthritis type: primary Valgus deformity, not elsewhere classified, right knee M21.061
--- NOTE | 2022-11-21 12:25 | PC.CHAP ---
Pastoral Care Encounter/Spiritual Assessment Type of Contact [] Declined behavior management specialist visit [] Patient/Family/Request visit [] Outpatient visit [] Follow-up visit [] Physician referral [] Code/Alert [x] Routine visit [] Staff referral [] Actively dying [] Patient sleeping [] Family support [] [] Out of room [] Palliative care [] [x] Receiving care in room [] Pre-surgical visit [] Trauma [] Long length of stay [] ICU visit [] Other: Relational/Emotional Strength [x] Patient feels connected with others/family/visitors/staff [x] Distress [] Loneliness/isolation [] Abandonment Spirituality of Patient [x] Person of Nidhi [] Attends Gnosticist of their Nidhi [] Believes in Prayer [] Reads Bible or Restorationist materials [] There are Spiritual issues to be addressed Clinical Documentation Spec Interventions [x] Prayer [x] Active listening [x] Non-anxious presence [x] Spiritual/emotional support [] Crisis/trauma care [x] Spiritual counseling [] Bereavement support [] Provided bereavement packet [] Provided Bible/devotional materials [] Provided toy/stuffed animal, coloring book to patient or family member [] Provided Communion [] Anointing/[place] [] Salvation [x] Completed spiritual assessment [] Other: Impact on Illness or Injury [] Angry [] Fearful [x] Anxious [] Often cries [] Exhaustion [] Unable to work [] Unable to attend quaker [] Unable to walk/stand [] Unable to read [] Unable to drive [] Unable to eat/drink [] Unable to sleep [] Unable to be with family [] Patient intubated [] Other: Summary in pain doesn't know waiting on doctors report has a good attitude well go home Time spent with patient 10 mins
[2022-11-21 13:17] VITALS: RESP 18
== END 2022-11-21 13:00 | disposition home health service (06) ==
LOC: MEDSURG 12:05
PROVIDERS: Admitting Provider Specialist; PCP Family Medicine; Visit Provider Specialist
PROC: 8E0Y0CZ Robotic Assisted Procedure of Lower Extremity, Open Approach (ICD-10-PCS; CPT 27447; principal; 2022-11-20 07:00)
DX: M17.11 Unilateral primary osteoarthritis, right knee (principal); M21.061 Valgus deformity, not elsewhere classified, right knee; M24.561 Contracture, right knee; M25.761 Osteophyte, right knee; J44.9 Chronic obstructive pulmonary disease, unspecified; Z86.718 Personal history of other venous thrombosis and embolism; Z86.711 Personal history of pulmonary embolism; K21.9 Gastro-esophageal reflux disease without esophagitis; Z87.11 Personal history of peptic ulcer disease; E78.5 Hyperlipidemia, unspecified; F41.9 Anxiety disorder, unspecified; F32.A Depression, unspecified; Z87.891 Personal history of nicotine dependence
CPT/HCPCS: 27447; 36415; 51702; 73560; 80048; 80053; 85025; 94640; 97110; 97116; 97161; 97166; 97535; C1776; C9290; G0378; J0131; J0690; J2250; J2370; J2704; J2795; J3370; J3490; J7030; J7613; J7626; J7644; J8999

== ENCOUNTER → 2022-12-04 10:26 | Outpatient (BNVA) | payer MEDICARE, OTHER, SELFPAY | PROVIDERS: PCP Family Medicine; Visit Provider Nurse Practitioner Family | DX: Z96.651 Presence of right artificial knee joint (principal) | CPT/HCPCS: 73560; 73565; 99024 ==

== ENCOUNTER → 2023-01-02 11:17 | Outpatient (BNVA) | payer MEDICARE, OTHER, SELFPAY | PROVIDERS: PCP Family Medicine; Visit Provider Nurse Practitioner Family | DX: Z96.651 Presence of right artificial knee joint (principal); R29.898 Other symptoms and signs involving the musculoskeletal system | CPT/HCPCS: 73560; 73565; 99024; 99213 ==

== ENCOUNTER → 2023-02-17 14:51 | Outpatient (BNVA) | payer MEDICARE, OTHER, SELFPAY | PROVIDERS: PCP Family Medicine; Visit Provider Specialist | DX: Z96.652 Presence of left artificial knee joint (principal); M17.12 Unilateral primary osteoarthritis, left knee; M21.062 Valgus deformity, not elsewhere classified, left knee | CPT/HCPCS: 73560; 73565; 99024; 99213 ==

== ENCOUNTER 2023-03-13 14:21 | Outpatient (RCR) | payer MEDICARE, OTHER, SELFPAY | END 2023-03-28 23:59 | disposition home or self-care (01) | LOC: SPT 14:21 | PROVIDERS: Visit Provider Specialist | DX: R26.89 Other abnormalities of gait and mobility (principal); M62.81 Muscle weakness (generalized) | CPT/HCPCS: 97110; 97161 ==

== ENCOUNTER 2023-03-26 15:28 | Oncology outpatient (recurring) (ONCR) | payer MEDICARE, OTHER, SELFPAY ==
[2023-03-26 16:13] LABS: Basophils # 0.1 10^3/uL (0.0-0.1); Basophils % 1.8 %; Eosinophils # 0.2 10^3/uL (0.0-0.8); Hematocrit 33.8 % (37.0-47.0); Hemoglobin 9.5 g/dL (11.5-15.3); Lymphocytes # 1.2 10^3/uL (0.8-4.8); Lymphocytes % 15.2 %; Mean Corpuscular HGB Conc 28.1 g/dL (30.0-36.0); Mean Corpuscular Hemoglobin 23.5 pg (28.0-34.0); Mean Corpuscular Volume 83.5 fl (81-99); Monocytes # 0.5 10^3/uL (0.2-0.9); Neutrophils # 5.92 10^3/uL (1.8-7.7); Neutrophils % 74.4 %; Nucleated Red Blood Cells % 0 %; Platelet Count 985 10^3/cmm (130-400); Red Blood Count 4.05 10^6/uL (4.1-5.3); Red Cell Distribution Width 19.8 % (12.1-15.1)
[2023-03-26 16:28] LABS: Alanine Aminotransferase 8 U/L (0-33); Albumin Level 3.8 g/dL (3.5-5.2); Alkaline Phosphatase 77 U/L (35-105); Anion Gap 14.1 (5-19); Aspartate Amino Transferase 11 U/L (0-32); Blood Urea Nitrogen 18 mg/dL (8-23); Calcium 8.8 mg/dL (8.5-10.5); Carbon Dioxide 27 mmol/L (22-29); Chloride 99 mmol/L (98-107); Globulin 2.2 g/dL (1.3-4.6); Glucose 124 mg/dL (65-115); Lactate Dehydrogenase 257 U/L (135-214); Osmolality Calculated 285 mOsm/kg (285-295); Potassium 4.1 mmol/L (3.5-5.1); Sodium 136 mmol/L (136-145); Total Bilirubin 0.2 mg/dL (0.15-1.2)
[2023-03-27 13:29] LABS: Iron 12 ug/dL (37-145); Percent Saturation 3.6 % (20-50); Total Iron Binding Capacity 328 mcg/dl; Unsaturated Iron Binding 316 ug/dL (112-347)
== END 2023-03-28 23:59 | disposition home or self-care (01) ==
PROVIDERS: Visit Provider Internal Medicine Medical Oncology
DX: D47.3 Essential (hemorrhagic) thrombocythemia (principal); Z87.891 Personal history of nicotine dependence; D50.9 Iron deficiency anemia, unspecified; Z96.651 Presence of right artificial knee joint; Z79.899 Other long term (current) drug therapy
CPT/HCPCS: 36415; 80053; 83540; 83550; 83615; 85025; 99214

== ENCOUNTER 2023-03-29 15:26 | Outpatient (RCR) | payer MEDICARE, OTHER, SELFPAY | END 2023-04-28 23:59 | disposition home or self-care (01) | LOC: SPT 15:26 | PROVIDERS: PCP Family Medicine; Visit Provider Specialist | DX: Z47.1 Aftercare following joint replacement surgery (principal); Z96.651 Presence of right artificial knee joint | CPT/HCPCS: 97110 ==

== ENCOUNTER 2023-04-18 10:32 | Outpatient (CLI) | payer MEDICARE, OTHER, SELFPAY ==
--- NOTE | 2023-04-18 10:45 | XR_ITS ---
WS: [id number] Exam: XR thoracic spine 2V [id number] Date/Time of Exam: 04/18/2023 10:45 AM Reason For Exam: chronic back pain No fracture or dislocation. There is spondylosis and degenerative disc changes at all levels. There i s straightening and reversal of the thoracic kyphosis. Paraspinal soft tissues are unremarkable. Slig ht dextroscoliosis. XR/XR thoracic spine 2V [id number] IMPRESSION: 1. Moderately advanced degenerative changes and straightening. 2. No fracture or malalignment. Slight scoliosis.
--- NOTE | 2023-04-18 10:45 | XR_ITS ---
WS: [id number] Exam: XR shoulder LT min 2V* [id number] Date/Time of Exam: 04/18/2023 10:45 AM Reason For Exam: left shoulder pain No fracture or dislocation. Moderately advanced degenerative change at the glenohumeral joint and the AC joint. Normal soft tissues. XR/XR shoulder LT min 2V* [id number] IMPRESSION: 1. Moderately advanced degenerative changes as noted above. 2. No fracture.
--- NOTE | 2023-04-18 10:45 | XR_ITS ---
WS: [id number] Exam: XR lumbar spine 2-3V* [id number] Date/Time of Exam: 04/18/2023 10:45 AM Reason For Exam: chronic back pain. 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 Severe disc degeneration from L2 to L5 with marked spondylos is. Angular levoscoliosis. No acute fracture. Advanced facet arthropathy at all levels. Osteopenia. A ortoiliac atherosclerosis. A prominent circumscribed lytic defect is noted involving S1. XR/XR lumbar spine 2-3V* [id number] IMPRESSION: 1. Advanced degenerative change, spondylosis and angular levoscoliosis. 2. Circumscribed lytic defect involving the S1 vertebra and may extend into the posterior elements. This could represent a pressure erosion from a neural cyst or other destructive process. Lumbosacral CT with and without contrast recomme nded for follow-up.
== END 2023-04-18 10:33 | disposition home or self-care (01) ==
LOC: RAD 10:35
PROVIDERS: PCP Family Medicine; Visit Provider Family Medicine
DX: G89.29 Other chronic pain (principal); M54.50 Low back pain, unspecified; M25.512 Pain in left shoulder; M54.6 Pain in thoracic spine
CPT/HCPCS: 72070; 72100; 73030

== ENCOUNTER 2023-04-22 10:47 | Oncology outpatient (recurring) (ONCR) | payer MEDICARE, OTHER, SELFPAY ==
[2023-04-22] MEDS: ferric carboxy (IVPB) 750 MG in sodium chloride 0.9% (100 ml) 100 ML 345 MG IV (11:55)
[2023-04-22] MEDS: sodium chloride 0.9% 250 ML 75 ML IV (11:55)
[2023-04-22 12:38] VITALS: BP 122/42; PULSE 59; RESP 16; TEMP 37.1; O2SAT 91
== END 2023-04-28 23:59 | disposition home or self-care (01) ==
PROVIDERS: PCP Family Medicine; Visit Provider Internal Medicine Medical Oncology
DX: D47.3 Essential (hemorrhagic) thrombocythemia (principal); R30.0 Dysuria; R19.7 Diarrhea, unspecified; R12 Heartburn; J44.9 Chronic obstructive pulmonary disease, unspecified; M25.561 Pain in right knee; M54.50 Low back pain, unspecified; G89.29 Other chronic pain; K13.79 Other lesions of oral mucosa; Z87.891 Personal history of nicotine dependence; Z79.64 Long term (current) use of myelosuppressive agent; T45.1X5A Adverse effect of antineoplastic and immunosuppressive drugs, initial encounter; E87.5 Hyperkalemia
CPT/HCPCS: 82274; 96365; J1439; J7050

== ENCOUNTER → 2023-05-06 11:38 | Outpatient (BNVA) | payer MEDICARE, OTHER, SELFPAY | PROVIDERS: PCP Family Medicine; Visit Provider Surgery | DX: R19.7 Diarrhea, unspecified; D50.9 Iron deficiency anemia, unspecified | CPT/HCPCS: 99203 ==

== ENCOUNTER 2023-05-13 14:30 | Outpatient (CLI) | payer MEDICARE, OTHER, SELFPAY ==
--- NOTE | 2023-05-13 14:45 | CT_ITS ---
WS: [id number] CT THORACIC SPINE HISTORY: degenerative changes on xray TECHNIQUE: Contiguous 2.0 mm axial images are reviewed to thoracic spine. Images are reformatted in s agittal and coronal planes. All CT scans at [facility] use at least one of these dose optimiz ation techniques: automated exposure control; mA and/or kV adjustment per patient size (includes targ eted exams where dose is matched to clinical indication); or iterative reconstruction. DLP: 603.15 mGy.cm COMPARISON: None available. Mild straightening and curvature thoracic spine. Disc spaces are all narrowed and desiccated. Mild co ncavity superior endplate of T3. Mild anterior wedging of T7 and T8. T1-2: Bilateral foraminal narrowing due to disc and osteophyte disease. T2-3: Moderate right and mild left foraminal stenosis. Small osteophyte encroaches upon the left late ral thecal sac. T3-4: No high-grade stenosis. T4-5: Mild bilateral facet arthritis and foraminal narrowing. T5-6: Mild foraminal narrowing. T6-7: Mild foraminal narrowing. T7-8: Mild osteophytic ridging and facet arthritis. Mild foraminal narrowing. T8-9: Moderate bilateral foraminal stenosis due to facet disease. T9-10: Moderate facet joint arthritis and osteophytic ridging. Moderate central and bilateral foramin al stenosis. T10-11: Moderate central and moderate to severe bilateral foraminal stenosis. Foraminal stenosis due to combination of facet disease and osteophytes. T11-12: Osteophytic ridging. Central disc protrusion encroaches upon the ventral thecal sac. Mild oz tral with moderate foraminal stenosis. Paravertebral soft tissues are normal. Mild atherosclerotic changes in the visualized thoracic aorta. IMPRESSION: 1. Moderate degenerative changes of the thoracic spine. Disc spaces are narrowed throughout the thora cic spine. 2. T2-3, moderate right and mild left foraminal stenosis. 3. T8-9: Moderate bilateral foraminal stenosis. 4. Moderate central and bilateral foraminal stenosis at T9-10, moderate central and moderate to sever e bilateral foraminal stenosis at T10-11. 5. Mild central and moderate foraminal stenosis at T11-12
--- NOTE | 2023-05-13 14:45 | CT_ITS ---
WS: [id number] CT LUMBAR SPINE, noncontrast. HISTORY: Chronic back pain. Spondylosis. TECHNIQUE: Contiguous 2.0 mm axial imaging are performed. Sagittal and coronal reformats are submitte d and reviewed. All CT scans at [facility] use at least one of these dose optimization techni ques: automated exposure control; mA and/or kV adjustment per patient size (includes targeted exams w here dose is matched to clinical indication); or iterative reconstruction. IV contrast: None DLP: 603.15 mGy.cm COMPARISON: Lumbar spine 04/18/2023 Severe rotary scoliosis and asymmetric disc space narrowing throughout the lumbar spine. Disc spaces are narrowed with left curvature of the lumbar vertebral bodies. Severe disc space narrowing. Very sl ight anterior wedging of L1 and L2. Vacuum disc phenomenon from L1-2 to L4-5. Severe facet joint arth ritis. T12-L1: Osteophytic and annular disc bulging. Encroachment upon the ventral thecal sac predominately by osteophytes. Moderate to severe central and bilateral subarticular recess stenosis. L1-2: Severe central, bilateral subarticular recess and left foraminal stenosis due to asymmetric dis c bulging and osteophyte and facet disease. Most significant encroachment upon the left L1 and L2 ner ve roots. L2-3: Marked annular disc bulging with marked osteophytic ridging and facet arthritis. Severe central , bilateral subarticular recess and foraminal stenosis. L3-4: Diffuse osteophytic ridging and facet arthritis. Moderate central with moderate to severe bilat eral subarticular recess and foraminal stenosis. L4-5: Asymmetric disc bulging. Severe facet joint arthritis with annular disc bulging and osteophytic ridging. Severe central, bilateral subarticular recess and foraminal stenosis. Most significant sten osis right subarticular recess and foramen. L5-S1: Mild annular disc bulging with facet arthritis. Moderate central, bilateral subarticular reces s and foraminal stenosis. Moderate atherosclerotic plaque throughout the abdominal aorta. IMPRESSION: 1. Severe, advanced degenerative lumbar spine rotary scoliosis with multiple levels of stenosis. Sten oses at each level is due to combination of the scoliosis, marked osteophytosis, disc and facet arthr itis. 2. Multilevel severe central, subarticular recess and foraminal stenosis as described above from T12- L1 to L4-5. More moderate stenosis at L5-S1. 3. Most significant stenoses at the L4-5 level.
== END 2023-05-13 14:31 | disposition home or self-care (01) ==
LOC: RAD 14:34
PROVIDERS: PCP Family Medicine; Visit Provider Family Medicine
DX: G89.29 Other chronic pain (principal); M43.07 Spondylolysis, lumbosacral region; M54.50 Low back pain, unspecified; M54.6 Pain in thoracic spine; M48.04 Spinal stenosis, thoracic region
CPT/HCPCS: 72128; 72131

== ENCOUNTER 2023-05-14 12:00 | Oncology outpatient (recurring) (ONCR) | payer MEDICARE, OTHER, SELFPAY ==
--- OUTSIDE RECORDS SUMMARY | 2023-04-30 10:32 | XMS_ITS | Patient Health Record ---
Author Name Unknown Organization [facility] Address [address] [place] [address] Care Team Providers Care Oil Producer Name Role Phone Harsh Fuller Primary Care Provider [phone] ALLERGIES No Known Allergies REASON FOR REFERRAL Reason Diarrhea Diagnosis 1 Diarrhea, unspecifie d type (R19.7) Referring Provider First Name Luli Referring Provider Last Name Wilfrido Referring Provider Speciality Family Pra [facility] Referred Organization [facility] Referred Provider Harsh Fuller Referred Address [address] [place] [phone], Referred Provider Specialty Internal Med icine General Notes Ramya Washington 03/2023 12:00:43 PM >Friday 8, 1:40 Referral Priority Routine MEDICATIONS Medication SIG (Take, Route, Frequency, Duration) Notes Start Date End Date Status Rivaroxaban 20 MG 1 tablet with food Orally Once a day Active Citalopram Hydrobromide 30 MG 1 capsule Orally Once a day Active Denosumab 60 MG/ML as directed Subcutaneous Active Famotidine 20 MG 1 tablet at bedtime as needed Orally Once a day Active Budesonide 3 MG 3 capsules Orally On ce a day for 30 day(s) 11/06/2022 Active Oxybutynin Chloride Active oxyCODONE HCl 10 MG 1 tablet as needed Orally every 6 hrs Active buPROPion HCl 150 MG as directed Orally Active Pantoprazole Sodium Active Calcium Carbonate 600 MG 1 tablet with f ood Orally Twice a day Active Cholecalciferol 25 MCG (1000 UT) 1 capsule Orally Once a day Active Gabapentin Active Hydroxyurea 500 MG 1 capsule Orally Onc e a day Active Acyclovir 800 MG 1 tablet Orally Twic e a day Active Milk Thistle Extract Active Mirtazapine Active Amoxicillin-Pot Clavulanate 875-125 MG 1 tablet Orally every 12 hrs Active SOCIAL HISTORY Tobacco Use: Social History Observation Description Date Details (start date - stop date) Never Smoker NA - NA Sex Assigned At : Social History Observation Description Sex Assigned At Unknown Tobacco Use/Smoking Question Answer Notes Are you a nonsmoker Alcohol Screen (Audit-C) Question Answer Notes Did you have a drink contain ing alcohol in the past year? Yes How often did you have a dri nk containing alcohol in the past year? Monthly or less (1 point) How many drinks did you have on a typical day when you were drinking in the past year? 1 or 2 drinks (0 point) Points 1 Interpretation Negative PHQ-9 Question Answer Notes Little interest or pleasure in doing things Not at all Feeling down, depressed, or hopeless Not at all Trouble falling or staying asleep, or sleeping t oo much Not at all Feeling tired or having little energy Several da ys Poor appetite or overeating Not at all Feeling bad about yourself, or that you are a failure, or have let yourself or your family down Not at all Trouble concentrating on thi ngs, such as reading the newspaper or watching television Not at all Moving or speaking so slowly that other people could have noticed. Or the opposite ? 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) Active confirmed 945360811 Problem Diarrhea, unspecified type (R19.7) Active confirmed 48654814 VITAL SIGNS Heart Rate 74 /min 02/06/2023 lower back Temperature 98.0 degrees Fahrenheit 02/06/2023 lowe r back Respiratory Rate 22 /min 11/06/2022 pain in rig ht knee and back Height-cm 170.18 cm 02/06/2023 lower back Oximetry 93 % 02/06/2023 lower back Blood pressure diastolic 64 mm Hg 02/06/2023 low er back Weight-kg 63.14 kg 02/06/2023 lower back Height 67 in 02/06/2023 lower back Blood pressure systolic 102 mm Hg 02/06/2023 lowe r back Weight 139.2 lbs 02/06/2023 lower back BMI 21.8 kg/m2 02/06/2023 lower back Encounters Encounter Location Date Provider Diagnosis [facility] [address] [place] [id number] 11/14/2022 Harsh Fuller [facility] [address] [place] [address] 12/02/2022 Harsh Fuller Diarrhea, unspecified type R19.7 [facility] [address] [place] [phone] 12/04/2022 Harsh Fuller [facility] [address] [place] [phone] 12/19/2022 Harsh Fuller Other microscopic colitis K52.838 [facility] [address] [place] [phone] 01/16/2023 Harsh Fuller Other microscopic colitis K52.838 and Diarrhea, unspecified type R19.7 [facility] [address] [place] [phone] 02/06/2023 Harsh Fuller Other microscopic colitis K52.838 and Diarrhea, unspecified type R19.7 [facility] [address] [place] [phone] 11/06/2022 Harsh Fuller Diarrhea, unspecified type R19.7 ASSESSMENTS Encounter Date Diagnosis Assessment Notes Treatment Notes Treatment Clinical Notes 11/06/2022 Diarrhea, unspecified type (ICD-10 - R19.7) Given that she doesn't appear to have any infection, and that she is current on her endoscopy. She also has no alarm symptoms. I will try a diagnose by treatment with some budesonide. 12/02/2022 Diarrhea, unspecified type (ICD-10 - R19.7) 12/19/2022 Other microscopic colitis (ICD-10 - K52.838) I have asked her to start her budesonide pills back. I will add bismuth temporarily. 01/16/2023 Other microscopic colitis (ICD-10 - K52.838) Not great control. 01/16/2023 Diarrhea, unspecified type (ICD-10 - R19.7) 02/06/2023 Other microscopic colitis (ICD-10 - K52.838) I have advised her to titrate her metamucil dose for comfort and continue the budesonide. 02/06/2023 Diarrhea, unspecified type (ICD-10 - R19.7) PLAN OF TREATMENT No Information Insurance Providers Payer Name Payer Address Payer Phone Subscriber Number Group Number Insured Name Patient Relationship to Insured Coverage Start Date Coverage End Date [place] [address] [place] [phone] [id number] Yina Mata Self - patient is the insured [place] of [address] [phone] [id number] Yina Mata Self - patient is the insured MEDICAL (GENERAL) HISTORY Medical History History ICD Code COPD (chronic obstructive pulmonary dise ase) J44.9 Congestive heart failure I50.9 Chronic pain syndrome G89.4 Depression F32.9 Dyslipidemia E78.5 Essential thrombocytopenia D69.3 Hx of pulmonary embolus Z86.711 Lumbosacral spondylolysis M43.07 Macular degeneration H35.30 Osteoarthritis M19.90 Peptic ulcer disease K27.9 Pulmonary HTN I27.20 Scoliosis M41.9 Valvular heart disease I38 Surgical History Surgery Date(Month/Year) had total knee replacement to right knee a month ago 2022 broken ankle on the right total hip left total knee left side Hospitalization History Reason Date(Month/Year) see surgical hx
[2023-04-30 10:36] VITALS: BP 93/47; PULSE 89; RESP 18; TEMP 36.8
[2023-04-30] MEDS: sodium chloride 0.9% 250 ML 100 ML IV (11:57)
[2023-04-30] MEDS: ferric carboxy (IVPB) 750 MG in sodium chloride 0.9% (100 ml) 100 ML 345 MG IV (11:59)
[2023-04-30 12:45] VITALS: BP 127/76; PULSE 58; TEMP 36.6; O2SAT 96
--- NOTE | 2023-04-30 13:10 | XRR_ITS ---
PROCEDURE INFORMATION: Exam: XR Left Forearm Exam date and time: 04/30/2023 1:17 PM Age: 72 years old Clinical indication: Injury or trauma; Fall; Blunt trauma (contusions or hematomas); Arm, lower; Left; Injury date: 6 days ago; Additional info: Pain after fall TECHNIQUE: Imaging protocol: Radiologic exam of the left forearm. Views: 2 views. COMPARISON: No relevant prior studies available. FINDINGS: Bones/joints: Normal. Soft tissues: Normal. XR/XR forearm LT 2V [id number] IMPRESSION: No acute findings.
--- NOTE | 2023-04-30 13:10 | XRR_ITS ---
PROCEDURE INFORMATION: Exam: XR Left Ribs with PA Chest Exam date and time: 04/30/2023 1:17 PM Age: 72 years old Clinical indication: Injury or trauma; Fall; Rib area, left side; Blunt trauma; Injury date: 6 days ago; Additional info: Pain after fall TECHNIQUE: Imaging protocol: Radiologic exam of the left ribs with PA chest. Views: 3 views COMPARISON: CR XR shoulder LT min 2V* [id number] 04/18/2023 10:50 AM FINDINGS: Lungs: Small focal opacity in the right lateral base could represent atelectasis, infiltrate, or scarring. Acuity is uncertain without comparison studies. Pleural spaces: Unremarkable. No pleural effusion. No pneumothorax. Heart/Mediastinum: Unremarkable. No cardiomegaly. Bones/joints: No identifiable rib fracture or other acute abnormality. XR/XR ribs LT 2V* [id number] IMPRESSION: No rib fracture. Small focal lateral opacity in the right base of uncertain acuity.
[2023-05-14 11:40] VITALS: BP 116/55; PULSE 84; RESP 16; TEMP 36; O2SAT 94
[2023-05-14] MEDS: denosumab 60 mg SDV SUBCUT (11:45)
== END 2023-05-29 23:59 | disposition home or self-care (01) ==
PROVIDERS: PCP Family Medicine; Visit Provider Internal Medicine Medical Oncology
DX: M81.0 Age-related osteoporosis without current pathological fracture (principal)
CPT/HCPCS: 71100; 73090; 96365; 96401; J0897; J1439; J7050

== ENCOUNTER → 2023-05-28 10:14 | Outpatient (BNVA) | payer MEDICARE, OTHER, SELFPAY | PROVIDERS: PCP Family Medicine; Visit Provider Specialist | DX: Z96.653 Presence of artificial knee joint, bilateral (principal); M17.0 Bilateral primary osteoarthritis of knee | CPT/HCPCS: 73560; 73565; 99213 ==

== ENCOUNTER 2023-06-11 07:33 | Day surgery (SDC) | payer MEDICARE, OTHER, SELFPAY ==
[2023-06-09 12:07] VITALS: BMI 21.9
[2023-06-11 07:52] VITALS: BP 122/94; PULSE 68; RESP 18; TEMP 36.4; O2SAT 97
--- NOTE | 2023-06-11 08:03 | PM.HP ---
Providers/Chief Complaint Primary Care Provider: Luli Anna DO Chief Complaint: R19.7, D50.8 History of Present Illness Yina Mata is a 73 year old female Review of Systems General: Reports: 10 or more systems reviewed and unremarkable except in HPI and below Medications/Allergies Home Medications Medication Instructions Recorded Confirmed Last Taken Type cholecalciferol (vitamin D3) 25 25 mcg PO DAILY 08/20/21 06/09/23 06/10/23 History mcg (1,000 unit) capsule milk thistle seed extract 300 mg PO DAILY 08/20/21 06/09/23 06/10/23 History vxyziddtyfui-uznezdwb-ijrmtu tablet 1 tab PO DAILY 08/20/21 06/09/23 06/10/23 History vitamins A,C,P-aucc-sxgwbt 4,296 1 cap PO DAILY 08/20/21 06/09/23 06/10/23 History mcg-226 mg-90 mg capsule (PreserVision AREDS) oxycodone 10 mg tablet 10 mg PO Q6H PRN pain 30 days #120 05/16/22 06/11/23 06/11/23 06:30 Rx tabs 5 mg DME: Jose #1 ea 07/31/22 06/09/23 Unknown Rx calcium carbonate 600 mg calcium 1,200 mg PO BID 09/12/22 06/09/23 06/10/23 History (1,500 mg) tablet (Calcium) fluticasone propionate 230 2 puff inhalation Q12H #12 grams 11/05/22 06/09/23 06/10/23 Rx mcg-salmeterol 21 mcg/actuation HFA inhaler (Advair HFA) albuterol sulfate 90 mcg/actuation 2 puff inhalation QID PRN 04/07/23 06/11/23 06/08/23 Rx aerosol inhaler shortness of breath or wheezing #8.5 grams magnesium gluconate 30 mg (550 mg) 30 mg PO DAILY 04/07/23 06/09/23 06/10/23 History tablet denosumab 60 mg/mL subcutaneous 60 mg SUBCUT .q 6 months #1 mL 05/08/23 06/09/23 05/07/23 Rx syringe (Prolia) solifenacin 10 mg tablet (Vesicare) 10 mg PO DAILY #90 tabs 0806/09/23 06/10/23 Rx acyclovir 800 mg tablet 800 mg PO TID PRN other 06/09/23 06/11/23 05/30/23 History bupropion HCl 150 mg 24 hr tablet, 150 mg PO DAILY 06/09/23 06/09/23 06/10/23 History extended release citalopram 20 mg tablet 30 mg PO DAILY 06/09/23 06/09/23 06/10/23 History gabapentin 400 mg capsule 400 mg PO TID 06/09/23 06/09/23 06/10/23 History hydroxyurea 500 mg capsule 500 mg PO DAILY 06/09/23 06/09/23 06/10/23 History mirtazapine 15 mg tablet 15 mg PO BEDTIME 06/09/23 06/09/23 06/10/23 History pantoprazole 40 mg tablet,delayed 80 mg PO DAILY 06/09/23 06/09/23 06/10/23 History release rivaroxaban 20 mg tablet (Xarelto) 20 mg PO DAILY 06/09/23 06/09/23 06/07/23 History tiotropium bromide 18 mcg capsule 2 cap inhalation DAILY 06/09/23 06/09/23 06/10/23 History with inhalation device (Spiriva with HandiHaler) Allergies Allergy/AdvReac Type Severity Reaction Status Date / Time No Known Allergies Allergy Verified 06/09/23 11:57 PFSH Acute PFSH: Medical History Chronic pain syndrome Congestive heart failure COPD (chronic obstructive pulmonary disease) Depression Dyslipidemia Essential thrombocythemia Hx of pulmonary embolus Lumbosacral spondylolysis Macular degeneration of both eyes Osteoarthritis Peptic ulcer disease Pulmonary HTN Scoliosis Valvular heart disease Surgical History (Updated 06/11/23 @ 08:03 by Abdirahman Trotter DO) History of ankle surgery ORIF for right ankle fracture History of total left hip replacement Hx of colonoscopy 2018 No polyps found Hx of tonsillectomy S/P ORIF (open reduction internal fixation) fracture (02/12/22) ORIF for right intertrochanteric hip fracture with associated subcapital hip fracture Status post total left knee replacement not using cement Diagnosis: Severe degenerative osteoarthritis left knee with valgus deformity and slight flexion contracture Procedure done: [place] assisted left total knee arthroplasty Implants: The Bvents total knee system with a size 3 triathlon beaded cruciate retaining femur left, a triathlon titanium tibial component size 3 beaded, a triathlon X3 tibial bearing CS insert size 3 X 13 mm and a beaded triathlon titanium asymmetric patella size 35 x 10 mm Family History Father Alcoholic cirrhosis of liver Other Dementia Hyperlipidemia Denies family history of Diabetes CAD (coronary artery disease) Clotting disorder Psychiatric illness Chronic kidney disease (CKD) Suicide Anesthesia complication Bleeding disorder Lung disease Cancer Hypertension Stroke Social History Smoking and tobacco status: former smoker Second hand smoke exposure: No Smoking risk assessment/counseling performed?: No Alcohol intake: never Desire information about alcohol rehabilitation?: No Counseling given: No Substance/Drug Use: current Substance/Drug use frequency: daily Desire information about substance/drug rehabilitation?: No Counseling given: No Adopted: No Caregiver/support person: No Lives independently: Yes Household members: none Marital status: / Current occupational status: retired Vitals/I&O/Wt Last Vital Signs Temp 97.6 F 06/11/23 07:52 Pulse 68 06/11/23 07:52 Resp 18 06/11/23 07:52 BP 122/94 06/11/23 07:52 Pulse Ox 97 06/11/23 07:52 O2 Del Method Room Air 06/11/23 07:52 Weight last 48 hrs Weight 140 lb A&P Assessment and plan (1) Iron deficiency anemia: (2) Diarrhea: Qualifiers: Diarrhea type: unspecified type Qualified Code(s): R19.7 - Diarrhea, unspecified Plan EGD and Colonoscopy Attestations Medical Necessity Statement*: home Coding Level of Care Code Acute Code for [facility] Fwd Diagnoses Iron deficiency anemia D50.9 Diarrhea R19.7 Diarrhea type: unspecified type
[2023-06-11] MEDS: sodium chloride 0.9% 1,000 ML 30 ML IV (08:04)
[2023-06-11 08:38] VITALS: BP 88/53; PULSE 55; RESP 12; TEMP 36.1; O2SAT 93
[2023-06-11 08:43] VITALS: BP 92/58; PULSE 54; RESP 18; O2SAT 94
[2023-06-11 08:53] VITALS: BP 122/68; PULSE 58; RESP 18; O2SAT 94
--- NOTE | 2023-06-11 09:00 | ANE.PACU2 ---
Inpatient post-anesthesia follow up: Airway intact: Yes Vital signs: Temperature 97.0 F Pulse Rate 58 Respiratory Rate 18 Blood Pressure 122/68 Pulse Oximetry 94 Oxygen Delivery Me thod Room Air Oxygen Flow Rate Fraction of Inspir ed Oxygen Hydration adequate: Yes Nausea and vomiting: No Pain level: 0 Mental status: Baseline
--- NOTE | 2023-06-11 11:41 | P.ANESASSM_ITS ---
Pre-Anesthetic Assessment Height/Weight: Height 1.7 m Weight 63.503 kg Temp Pulse Resp BP Pulse Ox O2 Del Method 97.0 F L 58 L 18 122/68 94 Room Air 06/11/23 08:38 06/11/23 08:53 06/11/23 08:53 06/11/23 08:53 06/11/23 08:53 06/11/23 08:53 Operation Date: 06/11/23 08:30 Proposed Procedures p [id number] EGD [id number] Colonoscopy D50.8,R19.7(Not Applicable) - DO rachel Calzada Colonoscopy(Not Applicable) - Abdirahman Trotter DO Familial anesthetic complications: none Was Beta Liane taken within 24 hours: N/A Was Clonidine taken within 24 hours: N/A Last intake: Intake Last Liquid Date 06/10/23 Last Liquid Time 21:00 Last Solid Date 06/09/23 Last Solid Time 20:00 Social No alcohol and No tobacco Exam alert, oriented x 3, clear to auscultation bilaterally and regular rate & rhythm Airway Submandibular: within normal limits Cervical ROM: within normal limits Mallampati: Class II Dentition: chipped and full Pulmonary Chronic Obstructive Pulmonary Disease PHTN CV/HEM Anemia, Congestive Heart Failure and Deep Vein Thrombosis (PE) GI Gastroesophageal Reflux Disease Musc/skel Osteoarthritis/DJD Neuropsych chronic pain Anesthetic Plan ASA status: 3 Anesthesia: MAC Medications/Allergies Home Medications Medication Instructions Recorded Confirmed Last Taken Type cholecalciferol (vitamin D3) 25 25 mcg PO DAILY 08/20/21 06/09/23 06/10/23 History mcg (1,000 unit) capsule milk thistle seed extract 300 mg PO DAILY 08/20/21 06/09/23 06/10/23 History lqqopelairps-gjsygkbp-ucccvw tablet 1 tab PO DAILY 08/20/21 06/09/23 06/10/23 History vitamins A,C,N-bhos-xyebkd 4,296 1 cap PO DAILY 08/20/21 06/09/23 06/10/23 History mcg-226 mg-90 mg capsule (PreserVision AREDS) oxycodone 10 mg tablet 10 mg PO Q6H PRN pain 30 days #120 05/16/22 06/11/23 06/11/23 06:30 Rx tabs 5 mg DME: Walker #1 ea 07/31/22 06/09/23 Unknown Rx calcium carbonate 600 mg calcium 1,200 mg PO BID 09/12/22 06/09/23 06/10/23 History (1,500 mg) tablet (Calcium) fluticasone propionate 230 2 puff inhalation Q12H #12 grams 11/05/22 06/09/23 06/10/23 Rx mcg-salmeterol 21 mcg/actuation HFA inhaler (Advair HFA) albuterol sulfate 90 mcg/actuation 2 puff inhalation QID PRN 04/07/23 06/11/23 06/08/23 Rx aerosol inhaler shortness of breath or wheezing #8.5 grams magnesium gluconate 30 mg (550 mg) 30 mg PO DAILY 04/07/23 06/09/23 06/10/23 History tablet denosumab 60 mg/mL subcutaneous 60 mg SUBCUT .q 6 months #1 mL 05/08/23 06/09/23 05/07/23 Rx syringe (Prolia) solifenacin 10 mg tablet (Vesicare) 10 mg PO DAILY #90 tabs 05/13/23 06/09/23 06/10/23 Rx acyclovir 800 mg tablet 800 mg PO TID PRN other 06/09/23 06/11/23 05/30/23 History bupropion HCl 150 mg 24 hr tablet, 150 mg PO DAILY 06/09/23 06/09/23 06/10/23 History extended release citalopram 20 mg tablet 30 mg PO DAILY 06/09/23 06/09/23 06/10/23 History gabapentin 400 mg capsule 400 mg PO TID 06/09/23 06/09/23 06/10/23 History hydroxyurea 500 mg capsule 500 mg PO DAILY 06/09/23 06/09/23 06/10/23 History mirtazapine 15 mg tablet 15 mg PO BEDTIME 06/09/23 06/09/23 06/10/23 History pantoprazole 40 mg tablet,delayed 80 mg PO DAILY 06/09/23 06/09/23 06/10/23 History release rivaroxaban 20 mg tablet (Xarelto) 20 mg PO DAILY 06/09/23 06/09/23 06/07/23 History tiotropium bromide 18 mcg capsule 2 cap inhalation DAILY 06/09/23 06/09/23 06/10/23 History with inhalation device (Spiriva with HandiHaler) Allergies Allergy/AdvReac Type Severity Reaction Status Date / Time No Known Allergies Allergy Verified 06/09/23 11:57 [facility] Anesthesia Medical History Chronic pain syndrome Congestive heart failure COPD (chronic obstructive pulmonary disease) Depression Dyslipidemia Essential thrombocythemia Hx of pulmonary embolus Lumbosacral spondylolysis Macular degeneration of both eyes Osteoarthritis Peptic ulcer disease Pulmonary HTN Scoliosis Valvular heart disease Surgical History (Updated 06/11/23 @ 08:03 by Abdirahman Trotter DO) History of ankle surgery ORIF for right ankle fracture History of total left hip replacement Hx of colonoscopy 2018 No polyps found Hx of tonsillectomy S/P ORIF (open reduction internal fixation) fracture (02/12/22) ORIF for right intertrochanteric hip fracture with associated subcapital hip fracture Status post total left knee replacement not using cement Diagnosis: Severe degenerative osteoarthritis left knee with valgus deformity and slight flexion contracture Procedure done: [place] assisted left total knee arthroplasty Implants: The [employer] total knee system with a size 3 triathlon beaded cruciate retaining femur left, a triathlon titanium tibial component size 3 beaded, a triathlon X3 tibial bearing CS insert size 3 X 13 mm and a beaded triathlon titanium asymmetric patella size 35 x 10 mm Family History Father Alcoholic cirrhosis of liver Other Dementia Hyperlipidemia Denies family history of Diabetes CAD (coronary artery disease) Clotting disorder Psychiatric illness Chronic kidney disease (CKD) Suicide Anesthesia complication Bleeding disorder Lung disease Cancer Hypertension Stroke Social History Smoking and tobacco status: former smoker Second hand smoke exposure: No Smoking risk assessment/counseling performed?: No Alcohol intake: never Desire information about alcohol rehabilitation?: No Counseling given: No Substance/Drug Use: current Substance/Drug use frequency: daily Desire information about substance/drug rehabilitation?: No Counseling given: No Adopted: No Caregiver/support person: No Lives independently: Yes Household members: none Marital status: / Current occupational status: retired Data Anesthesia Microbiology 06/11/23 08:25 Stool Lactoferrin - Final Stool Occult Blood (FIT) - Final Cardiac Studies: No Data to Display
== END 2023-06-11 09:18 | disposition home or self-care (01) ==
PROVIDERS: PCP Family Medicine; Visit Provider Surgery
PROC: 0DJ08ZZ Inspection of Upper Intestinal Tract, Via Natural or Artificial Opening Endoscopic (ICD-10-PCS; CPT 43235; principal; 2023-06-11 08:30)
PROC: 0DJD8ZZ Inspection of Lower Intestinal Tract, Via Natural or Artificial Opening Endoscopic (ICD-10-PCS; CPT 45378; 2023-06-11 08:30)
DX: D50.8 Other iron deficiency anemias (principal); R19.7 Diarrhea, unspecified; K29.70 Gastritis, unspecified, without bleeding; J44.9 Chronic obstructive pulmonary disease, unspecified; I11.0 Hypertensive heart disease with heart failure; I50.9 Heart failure, unspecified; K21.9 Gastro-esophageal reflux disease without esophagitis; Z86.718 Personal history of other venous thrombosis and embolism; Z86.711 Personal history of pulmonary embolism; Z87.891 Personal history of nicotine dependence
CPT/HCPCS: 43239; 45380; 82274; 83630; 87045; 87177; 87209; 87324; 87427; 87449; 88305; 88312; J2704; J7030

== ENCOUNTER 2023-06-17 15:47 | Outpatient (CLI) | payer MEDICARE, OTHER, SELFPAY ==
--- NOTE | 2023-06-17 16:00 | MR_ITS ---
WS: [id number] MRI LEFT SHOULDER HISTORY: Left shoulder pain COMPARISON: LEFT shoulder radiographs 04/18/2023 TECHNIQUE: Multiplanar sequences of the shoulder joint are submitted. Severe AC joint arthritis. Loss of the normal joint space with osteophytic ridging. No fracture. Smal l amount of fluid in the subacromial and subdeltoid bursa. Moderate subacromial impingement upon the supraspinatus tendon. Biceps tendon is not identified in the bicipital groove. No os acromion. Moderately high riding humeral head. Severe glenohumeral joint narrowing. Osteophytic ridging around the humeral head and the acetabulum. Loss of the normal cartilage. Abnormal marrow signal but no frac ture. Diffuse mild to moderate atrophy without edema involving the rotator cuff muscles. Supraspinatus tendon is very thin and atrophic distal to the glenoid. There is an at least insertion site tear. There is marked fraying along both the bursal and articular surface of the supraspinatus t endon and it appears at least partially retracted to the superior humeral head. Subscapularis tendon is very wavy and the distal insertion site is not well visualized. Suspect at least partial tear. Thi nning and fraying of the distal infraspinatus tendon. There is fluid along the tendon but no tear con firmed. There is edema over the posterior lateral deltoid muscle may be from a recent injury. Diffusely abnor mal labrum. IMPRESSION: 1. Advanced degenerative changes at the AC joint and glenohumeral joint. 2. Moderate subacromial impingement upon the supraspinatus tendon. 3. Biceps tendon not identified in the bicipital groove. 4. Moderate high riding humeral head. 5. Diffuse abnormal marrow signal throughout the humeral head and glenoid from osteopenia and chronic osteoarthritis. 6. Markedly thinned atrophic distal supraspinatus tendon over the humeral head. The insertion site te ar is also present. 7. Subscapularis tendon is wavy and the distal insertion site is not identified. Suspect tear. 8. Diffuse rotator cuff muscle atrophy.
== END 2023-06-17 15:48 | disposition home or self-care (01) ==
PROVIDERS: PCP Family Medicine; Visit Provider Family Medicine
DX: M25.512 Pain in left shoulder (principal); M19.012 Primary osteoarthritis, left shoulder; M25.812 Other specified joint disorders, left shoulder
CPT/HCPCS: 73221

== ENCOUNTER → 2023-06-23 10:56 | Outpatient (BNVA) | payer MEDICARE, OTHER, SELFPAY | PROVIDERS: PCP Family Medicine; Visit Provider Specialist | DX: M19.012 Primary osteoarthritis, left shoulder | CPT/HCPCS: 20610; 73030; 99214; J1100; J2795; J3301 ==

== ENCOUNTER → 2023-06-24 15:20 | Outpatient (BNVA) | payer MEDICARE, OTHER, SELFPAY | PROVIDERS: PCP Family Medicine; Visit Provider Surgery | DX: Z09 Encounter for follow-up examination after completed treatment for conditions other than malignant neoplasm (principal) | CPT/HCPCS: 99213 ==

== ENCOUNTER 2023-06-26 11:00 | Oncology outpatient (recurring) (ONCR) | payer MEDICARE, OTHER, SELFPAY ==
[2023-06-26 11:49] LABS: Basophils # 0.2 10^3/uL (0.0-0.1); Basophils % 2.1 %; Eosinophils # 0.2 10^3/uL (0.0-0.8); Eosinophils % 2.9 %; Hematocrit 40.4 % (36-47); Lymphocytes # 1.1 10^3/uL (0.8-4.8); Lymphocytes % 13.5 %; Mean Corpuscular HGB Conc 31.7 g/dL (30-55); Mean Corpuscular Hemoglobin 30.2 pg (27-33); Mean Corpuscular Volume 95.3 fl (85-98); Monocytes # 0.7 10^3/uL (0.2-0.9); Monocytes % 8.7 %; Neutrophils # 5.96 10^3/uL (1.8-7.7); Neutrophils % 71.8 %; Nucleated Red Blood Cells % 0 %; Platelet Count 686 10^3/cmm (157-399); Red Blood Count 4.24 10^6/uL (3.85-5.65); Red Cell Distribution Width 26.6 % (12.1-15.1); White Blood Count 8.29 10^3/uL (3.29-11.43)
[2023-06-26 12:16] LABS: Alanine Aminotransferase 10 U/L (0-33); Albumin Level 4.4 g/dL (3.5-5.2); Alkaline Phosphatase 70 U/L (35-105); Anion Gap 15.5 (5-19); Aspartate Amino Transferase 17 U/L (0-32); Blood Urea Nitrogen 24 mg/dL (8-23); Calcium 8.9 mg/dL (8.5-10.5); Carbon Dioxide 26 mmol/L (22-29); Chloride 103 mmol/L (98-107); Globulin 1.8 g/dL (1.3-4.6); Glucose 97 mg/dL (65-115); Lactate Dehydrogenase 334 U/L (135-214); Osmolality Calculated 292 mOsm/kg (285-295); Potassium 5.5 mmol/L (3.5-5.1); Sodium 139 mmol/L (136-145); Total Bilirubin 0.2 mg/dL (0.15-1.2); Total Protein 6.2 g/dL (6.6-8.7)
[2023-06-26 13:56] LABS: Ferritin 166 ng/mL (15-150); Iron 63 ug/dL (37-145); Percent Saturation 30.2 % (20-50); Total Iron Binding Capacity 208 mcg/dl; Unsaturated Iron Binding 145 ug/dL (112-347)
== END 2023-06-28 23:59 | disposition home or self-care (01) ==
PROVIDERS: Nurse Practitioner Family; PCP Family Medicine; Visit Provider Internal Medicine Medical Oncology
DX: M81.0 Age-related osteoporosis without current pathological fracture (principal); D50.8 Other iron deficiency anemias; R52 Pain, unspecified; F51.04 Psychophysiologic insomnia; R19.7 Diarrhea, unspecified; Z79.899 Other long term (current) drug therapy; Z53.9 Procedure and treatment not carried out, unspecified reason
CPT/HCPCS: 36415; 80053; 82728; 83540; 83550; 83615; 85025; 99214

== ENCOUNTER 2023-10-12 13:01 | Emergency (ER) | payer MEDICARE, OTHER, SELFPAY ==
[2023-10-12 13:13] VITALS: BP 104/67; PULSE 66; RESP 16; TEMP 37.1; O2SAT 98; BMI 21.9
--- NOTE | 2023-10-12 13:52 | XRR_ITS ---
PROCEDURE INFORMATION: Exam: XR Left Shoulder Exam date and time: 10/12/2023 1:56 PM Age: 73 years old Clinical indication: Left; Patient HX: Lt shoulder pain post mutiple falls TECHNIQUE: Imaging protocol: Radiologic exam of the left shoulder. Views: 2 or more views. COMPARISON: CR XR shoulder LT min 2V* [id number] 06/23/2023 11:05 AM FINDINGS: Bones/joints: Narrow subacromial space is seen on external rotation position, while no longer seen on internal rotation view. No acute fracture. Soft tissues: Soft tissues normal. Partially visualized lung lobe is clear. XR/XR shoulder LT min 2V* [id number] IMPRESSION: Increased narrowed subacromial space, which can be seen with rotator cuff arthropathy Further evaluation with nonemergent MRI may be obtained.
--- NOTE | 2023-10-12 15:06 | W.ED.EXTPRO ---
HPI - Extremity Problem General: Chief complaint: Extremity Problem,Nontraumatic Stated complaint: LEFT SHOUDLER PAIN Time Seen by Provider: 10/12/23 14:38 Source: patient Mode of arrival: ambulatory Limitations: no limitations History of Present Illness: Patient is a 73-year-old female presents to ED today with a complaint of left shoulder pain. Patient states her left shoulder has been bothering her for 6 weeks however later tells me it was bothering her when she saw Dr. Castillo and received an intra articular steroid injection. Date of the service was approximately 3 months ago in May. Patient has not had any recent injury or trauma to the shoulder. She states the injection helped temporarily. MD Complaint: joint pain Onset (ago): month(s) Pain Consistency: constant Location: left and upper extremity Radiation: none Relieving factors: nothing Exacerbating factors: range of motion Associated symptoms: Reports no associated symptoms; Deny chest pain or fever(s) Review of Systems Const: Denies: fever(s), chills, body aches, fatigue or malaise Card: Denies: chest pain Resp: Denies: dyspnea Musc: Reports: joint pain (L shoulder); Denies: neck pain, back pain, extremity pain, extremity swelling, joint swelling, joint redness or joint warmth Neuro: Denies: headache(s), numbness in extremities, weakness in extremities or sensory changes [facility] ED PFSH: Medical History Congestive heart failure Valvular heart disease Essential thrombocythemia Pulmonary HTN COPD (chronic obstructive pulmonary disease) Chronic pain syndrome Scoliosis Osteoarthritis Hx of pulmonary embolus Depression Dyslipidemia Lumbosacral spondylolysis Peptic ulcer disease Macular degeneration of both eyes Surgical History Hx of colonoscopy 2019 No polyps found Status post total left knee replacement not using cement Diagnosis: Severe degenerative osteoarthritis left knee with valgus deformity and slight flexion contracture Procedure done: [place] assisted left total knee arthroplasty Implants: The [employer] total knee system with a size 3 triathlon beaded cruciate retaining femur left, a triathlon titanium tibial component size 3 beaded, a triathlon X3 tibial bearing CS insert size 3 X 13 mm and a beaded triathlon titanium asymmetric patella size 35 x 10 mm S/P ORIF (open reduction internal fixation) fracture (02/12/22) ORIF for right intertrochanteric hip fracture with associated subcapital hip fracture History of total left hip replacement History of ankle surgery ORIF for right ankle fracture Hx of tonsillectomy Family History Father Alcoholic cirrhosis of liver Other Dementia Hyperlipidemia Denies family history of Diabetes CAD (coronary artery disease) Clotting disorder Psychiatric illness Chronic kidney disease (CKD) Suicide Anesthesia complication Bleeding disorder Lung disease Cancer Hypertension Stroke Social History Smoking and tobacco/nicotine status: former use of tobacco/nicotine Quit status (tobacco/nicotine): has quit using Year quit tobacco: 2020 Former quit date comment: 50 + years smoked/still uses chewing tobacco Second hand smoke exposure: No Alcohol intake: never Substance/Drug Use: current Substance/Drug use frequency: daily Adopted: No Caregiver/support person: No Lives independently: Yes Household members: none Marital status: / Current occupational status: retired Physical Exam Const: COMMON NORMALS: no acute distress, patient oriented x3, no limitations, healthy appearing, alert and well nourished Neck/C-Spine: COMMON NORMALS: full ROM GENERAL: Yes normal visual inspection CERVICAL SPINE: Yes cervical ROM normal, No pain with cervical ROM, No Cervical spine tenderness and No Paracervical muscle tenderness Extremity: COMMON NORMALS: normal to inspection, capillary refill normal and no joint enlargement GENERAL: Yes normal exam except as noted LEFT UPPER EXTREMITY: Yes shoulder joint (TTP) Left shoulder joint: Yes ROM (hesitant but full passive ROM) and Yes neurovascular exam (normal) Neuro: COMMON NORMALS: patient oriented x3, moves all extremities, no focal motor deficits and no sensory deficits noted SENSORIUM/ORIENTATION: Yes alert Skin: COMMON NORMALS: no rashes or lesions noted GENERAL SKIN EXAM: no rashes or lesions noted Course Vital Signs: Vital signs: Vital Signs Temperature 98.8 F 10/12/23 13:13 Pulse Rate 66 10/12/23 13:13 Respiratory Rate 16 10/12/23 13:13 Blood Pressure 104/67 10/12/23 13:13 Pulse Oximetry 98 10/12/23 13:13 Oxygen Delivery Me thod Room Air 10/12/23 13:13 MDM - Extremity (Nontraumatic) Medical Decision Making XR showing narrowed subacromial space which can be seen with rotator cuff arthropathy. Recommend she follow-up with Dr. Castillo for further evaluation/treatment. Lab Data Radiology Impressions Shoulder X-Ray 10/12/23 13:52 IMPRESSION: Increased narrowed subacromial space, which can be seen with rotator cuff arthropathy Further evaluation with nonemergent MRI may be obtained. All radiology interpretation(s) finalized by discharge Discharge Plan Discharge Patient Disposition: Home Clinical Impression: Left shoulder pain Qualifiers: Chronicity: acute Qualified Code(s): M25.512 - Pain in left shoulder Condition: Stable Prescriptions: No Action mndjdowsnzxj-itoipsay-vwnqgv Tablet 1 tab PO DAILY cholecalciferol (vitamin D3) 25 mcg (1,000 unit) capsule 25 mcg PO DAILY milk thistle seed extract 300 mg PO DAILY PreserVision AREDS [id number] xhqz-xh-vlfs capsule 1 cap PO DAILY oxycodone 10 mg tablet 10 mg PO Q6H PRN (Reason: pain) 30 Days Qty: 120 0RF Rx Instructions: Do not fill until 05/24/2022 (DME) DME: [facility] Unit See Rx Instructions .Route Qty: 1 0RF Rx Instructions: As directed calcium carbonate [Calcium 600] 600 mg calcium (1,500 mg) tablet 1,200 mg PO BID hydroxyurea 500 mg capsule 500 mg PO DAILY Qty: 96 2RF Rx Instructions: 500 mg PO 2 caps on Mon, Weds, Fri 1 caps on , Thurs None on Fri and Friday magnesium gluconate 30 mg (550 mg) tablet 30 mg PO DAILY albuterol sulfate 90 mcg/actuation HFA aerosol inhaler 2 puff inhalation QID PRN (Reason: shortness of breath or wheezing) Qty: 8.5 3RF Prolia 60 mg/mL syringe 60 mg SUBCUT .q 6 months Qty: 1 2RF Advair HFA 230-21 mcg/actuation HFA aerosol inhaler 2 puff inhalation Q12H Qty: 12 2RF solifenacin [Vesicare] 10 mg tablet 10 mg PO DAILY Qty: 90 0RF terbinafine HCl 250 mg tablet 250 mg PO DAILY Qty: 60 0RF pantoprazole 40 mg tablet,delayed release (DR/EC) 80 mg PO DAILY Qty: 180 0RF Rx Instructions: TAKE 2 TABLETS BY MOUTH EVERY DAY Xarelto 20 mg tablet See Rx Instructions .ROUTE .COMPLEX Qty: 30 0RF Hold Instructions: Resume on 06/14/23. Dose Instruction: TAKE 1 TABLET BY MOUTH EVERY DAY with evening meal Rx Instructions: TAKE 1 TABLET BY MOUTH EVERY DAY with evening meal gabapentin 400 mg capsule See Rx Instructions .ROUTE .COMPLEX Qty: 90 0RF Dose Instruction: TAKE ONE CAPSULE BY MOUTH THREE TIMES DAILY Rx Instructions: TAKE ONE CAPSULE BY MOUTH THREE TIMES DAILY mirtazapine 15 mg tablet See Rx Instructions .ROUTE .COMPLEX Qty: 90 0RF Dose Instruction: TAKE 1 & 1/2 (ONE & ONE-HALF) TABLETS BY MOUTH ONCE DAILY AT BEDTIME Rx Instructions: TAKE 1 & 1/2 (ONE & ONE-HALF) TABLETS BY MOUTH ONCE DAILY AT BEDTIME acyclovir 800 mg tablet 800 mg PO TID PRN (Reason: other) Rx Instructions: TAKE 1 TABLET BY MOUTH THREE TIMES DAILY NEEDED FOR COLD SORES citalopram 20 mg tablet 30 mg PO DAILY Rx Instructions: TAKE 1 & 1/2 (ONE & ONE-HALF) TABLETS BY MOUTH ONCE DAILY bupropion HCl 150 mg tablet extended release 24 hr 150 mg PO DAILY Rx Instructions: TAKE 1 TABLET BY MOUTH ONCE DAILY IN THE MORNING tiotropium bromide [Spiriva with HandiHaler] 18 mcg capsule, w/inhalation device 2 cap inhalation DAILY Rx Instructions: use 2 inhalations to inhale contents of 1 capsule per handihaler once daily Discharge Orders: Discharge ED (Routine); Ordered 10/12/23 Ordered By: Catrachita Cruz Referrals: Luli Anna DO [Primary Care Provider] - Activity Restrictions/Additional Instructions: As we discussed please contact Dr. Castillo's office for further follow up. Coding Level of Care Code ED Residential Installer for Davon Chavez
[2023-10-12] MEDS: dexamethasone 10 mg/mL INJ 6 MG IM (15:15)
== END 2023-10-12 15:29 | disposition home or self-care (01) ==
PROVIDERS: Emergency Provider Physician Assistant; PCP Family Medicine
DX: M25.512 Pain in left shoulder (principal); Z87.891 Personal history of nicotine dependence; I11.0 Hypertensive heart disease with heart failure; I50.9 Heart failure, unspecified; J44.9 Chronic obstructive pulmonary disease, unspecified; E78.5 Hyperlipidemia, unspecified; H35.30 Unspecified macular degeneration
CPT/HCPCS: 73030; 96372; 99284; J1100

== ENCOUNTER 2023-10-27 10:58 | Oncology outpatient (recurring) (ONCR) | payer MEDICARE, OTHER, SELFPAY ==
[2023-10-27 11:13] VITALS: BP 119/67; PULSE 65; RESP 18; TEMP 37.1; O2SAT 97
[2023-10-27 11:39] LABS: Basophils # 0.1 10^3/uL (0.0-0.1); Basophils % 1.5 %; Eosinophils # 0.1 10^3/uL (0.0-0.8); Eosinophils % 1.5 %; Hematocrit 32.4 % (36-47); Lymphocytes # 0.9 10^3/uL (0.8-4.8); Lymphocytes % 14.2 %; Mean Corpuscular HGB Conc 31.8 g/dL (30-55); Mean Corpuscular Hemoglobin 34.2 pg (27-33); Mean Corpuscular Volume 107.6 fl (85-98); Mean Platelet Volume 10.2 fL (7.4-10.4); Monocytes # 0.4 10^3/uL (0.2-0.9); Monocytes % 6.5 %; Neutrophils # 4.91 10^3/uL (1.8-7.7); Neutrophils % 75.5 %; Nucleated Red Blood Cells % 0 %; Platelet Count 499 10^3/cmm (157-399); Red Blood Count 3.01 10^6/uL (3.85-5.65); Red Cell Distribution Width 20.1 % (12.1-15.1)
[2023-10-27 11:57] LABS: Alanine Aminotransferase < 5 U/L (0-33); Albumin Level 3.6 g/dL (3.5-5.2); Alkaline Phosphatase 69 U/L (35-105); Anion Gap 10.5 (5-19); Aspartate Amino Transferase 10 U/L (0-32); Blood Urea Nitrogen 15 mg/dL (8-23); Calcium 8.6 mg/dL (8.5-10.5); Carbon Dioxide 29 mmol/L (22-29); Chloride 105 mmol/L (98-107); Ferritin 165 ng/mL (15-150); Globulin 2.1 g/dL (1.3-4.6); Glucose 91 mg/dL (65-115); Iron 53 ug/dL (37-145); Osmolality Calculated 292 mOsm/kg (285-295); Percent Saturation 29.9 % (20-50); Potassium 3.5 mmol/L (3.5-5.1); Sodium 141 mmol/L (136-145); Total Bilirubin 0.3 mg/dL (0.15-1.2); Total Iron Binding Capacity 177 mcg/dl; Total Protein 5.7 g/dL (6.6-8.7); Unsaturated Iron Binding 124 ug/dL (112-347)
[2023-10-27 14:31] LABS: Vitamin B12 1019 pg/mL (232-1245)
== END 2023-10-29 23:59 | disposition home or self-care (01) ==
PROVIDERS: Nurse Practitioner Family; PCP Family Medicine; Visit Provider Internal Medicine Medical Oncology
DX: M81.0 Age-related osteoporosis without current pathological fracture (principal); D50.8 Other iron deficiency anemias; R52 Pain, unspecified; Z79.899 Other long term (current) drug therapy
CPT/HCPCS: 36415; 80053; 82607; 82728; 83540; 83550; 85025; 99214

== ENCOUNTER → 2023-10-31 12:29 | Outpatient (BNVA) | payer MEDICARE, OTHER, SELFPAY | PROVIDERS: PCP Family Medicine; Visit Provider Family Medicine | DX: R19.7 Diarrhea, unspecified (principal); E78.5 Hyperlipidemia, unspecified | CPT/HCPCS: 80061; 86003; 86008 ==

== ENCOUNTER 2023-11-10 13:57 | Oncology outpatient (recurring) (ONCR) | payer MEDICARE, OTHER, SELFPAY ==
[2023-11-10 14:18] VITALS: BP 107/72; PULSE 74; RESP 14; TEMP 36.6; O2SAT 94
[2023-11-10] MEDS: denosumab 60 mg SDV SUBCUT (15:02)
== END 2023-11-27 23:59 | disposition home or self-care (01) ==
PROVIDERS: PCP Family Medicine; Visit Provider Internal Medicine Medical Oncology
DX: M81.0 Age-related osteoporosis without current pathological fracture (principal); Z53.9 Procedure and treatment not carried out, unspecified reason
CPT/HCPCS: 96372; J0897

== ENCOUNTER 2024-01-07 10:28 | Outpatient (RCR) | payer MEDICARE, OTHER, SELFPAY | END 2024-01-27 23:59 | disposition home or self-care (01) | LOC: SPT 10:28 | PROVIDERS: PCP Family Medicine; Visit Provider Family Medicine | DX: R26.81 Unsteadiness on feet (principal) | CPT/HCPCS: 95992; 97110; 97112; 97161 ==

== ENCOUNTER 2024-01-28 06:00 | Outpatient (RCR) | payer MEDICARE, OTHER, SELFPAY | END 2024-02-27 23:59 | disposition home or self-care (01) | LOC: SPT 06:00 | PROVIDERS: PCP Family Medicine; Visit Provider Family Medicine | DX: R26.81 Unsteadiness on feet (principal) | CPT/HCPCS: 95992; 97110; 97112 ==

== ENCOUNTER 2024-02-02 12:08 | Oncology outpatient (recurring) (ONCR) | payer MEDICARE, OTHER, SELFPAY ==
[2024-02-02 12:40] LABS: Basophils # 0.2 10^3/uL (0.0-0.1); Basophils % 2.1 %; Eosinophils # 0.2 10^3/uL (0.0-0.8); Hematocrit 37.9 % (36-47); Lymphocytes # 1.3 10^3/uL (0.8-4.8); Lymphocytes % 14.5 %; Mean Corpuscular HGB Conc 31.4 g/dL (30-55); Mean Corpuscular Hemoglobin 31.4 pg (27-33); Mean Platelet Volume 10.5 fL (7.4-10.4); Monocytes # 0.6 10^3/uL (0.2-0.9); Monocytes % 6.7 %; Neutrophils # 6.78 10^3/uL (1.8-7.7); Neutrophils % 73.8 %; Nucleated Red Blood Cells % 0 %; Platelet Count 562 10^3/cmm (157-399); Red Blood Count 3.79 10^6/uL (3.85-5.65); Red Cell Distribution Width 18.1 % (12.1-15.1); White Blood Count 9.17 10^3/uL (3.29-11.43)
[2024-02-02 13:06] LABS: Alanine Aminotransferase 6 U/L (0-33); Albumin Level 4.1 g/dL (3.5-5.2); Alkaline Phosphatase 68 U/L (35-105); Aspartate Amino Transferase 11 U/L (0-32); Blood Urea Nitrogen 21 mg/dL (8-23); Calcium 8.5 mg/dL (8.5-10.5); Carbon Dioxide 26 mmol/L (22-29); Chloride 106 mmol/L (98-107); Ferritin 135 ng/mL (15-150); Globulin 2.2 g/dL (1.3-4.6); Glucose 101 mg/dL (65-115); Iron 57 ug/dL (37-145); Osmolality Calculated 295 mOsm/kg (285-295); Percent Saturation 28.9 % (20-50); Sodium 141 mmol/L (136-145); Total Bilirubin 0.3 mg/dL (0.15-1.2); Total Iron Binding Capacity 197 mcg/dl; Total Protein 6.3 g/dL (6.6-8.7); Unsaturated Iron Binding 140 ug/dL (112-347)
[2024-02-02 13:32] LABS: Folate Level 11.1 ng/mL (4.8-37.3)
== END 2024-02-27 23:59 | disposition home or self-care (01) ==
PROVIDERS: Nurse Practitioner Family; PCP Family Medicine; Visit Provider Internal Medicine Medical Oncology
DX: M81.0 Age-related osteoporosis without current pathological fracture (principal); Z53.9 Procedure and treatment not carried out, unspecified reason; D50.8 Other iron deficiency anemias; D47.3 Essential (hemorrhagic) thrombocythemia; R19.7 Diarrhea, unspecified
CPT/HCPCS: 36415; 80053; 82728; 82746; 83540; 83550; 85025; 99214

== ENCOUNTER 2024-02-28 06:00 | Outpatient (RCR) | payer MEDICARE, OTHER, SELFPAY | END 2024-03-22 23:59 | disposition home or self-care (01) | LOC: SPT 06:00 | PROVIDERS: PCP Family Medicine; Visit Provider Family Medicine | DX: R26.81 Unsteadiness on feet (principal) | CPT/HCPCS: 95992; 97110; 97112 ==

== ENCOUNTER 2024-05-10 13:23 | Oncology outpatient (recurring) (ONCR) | payer MEDICARE, OTHER, SELFPAY ==
[2024-05-10 13:50] LABS: Basophils # 0.2 10^3/uL (0.0-0.1); Basophils % 2.6 %; Eosinophils # 0.3 10^3/uL (0.0-0.8); Eosinophils % 3.2 %; Hematocrit 35.9 % (36-47); Lymphocytes % 13.3 %; Mean Corpuscular HGB Conc 31.5 g/dL (30-55); Mean Corpuscular Hemoglobin 31.7 pg (27-33); Mean Corpuscular Volume 100.6 fl (85-98); Mean Platelet Volume 10.2 fL (7.4-10.4); Monocytes # 0.6 10^3/uL (0.2-0.9); Monocytes % 7.5 %; Neutrophils # 5.59 10^3/uL (1.8-7.7); Neutrophils % 71.9 %; Nucleated Red Blood Cells % 0 %; Platelet Count 584 10^3/cmm (157-399); Red Blood Count 3.57 10^6/uL (3.85-5.65); Red Cell Distribution Width 18.3 % (12.1-15.1); White Blood Count 7.77 10^3/uL (3.29-11.43)
[2024-05-10 14:09] LABS: Alanine Aminotransferase 8 U/L (0-33); Albumin Level 4.1 g/dL (3.5-5.2); Alkaline Phosphatase 85 U/L (35-105); Aspartate Amino Transferase 17 U/L (0-32); Blood Urea Nitrogen 26 mg/dL (8-23); Calcium 9.1 mg/dL (8.5-10.5); Carbon Dioxide 25 mmol/L (22-29); Chloride 99 mmol/L (98-107); Glucose 143 mg/dL (65-115); Osmolality Calculated 287 mOsm/kg (285-295); Sodium 135 mmol/L (136-145); Total Bilirubin 0.3 mg/dL (0.15-1.2); Total Protein 6.1 g/dL (6.6-8.7)
== END 2024-05-29 23:55 | disposition home or self-care (01) ==
PROVIDERS: Nurse Practitioner Family; PCP Family Medicine; Visit Provider Internal Medicine Medical Oncology
DX: M81.0 Age-related osteoporosis without current pathological fracture (principal); D50.9 Iron deficiency anemia, unspecified; D47.3 Essential (hemorrhagic) thrombocythemia; Z87.891 Personal history of nicotine dependence; Z79.64 Long term (current) use of myelosuppressive agent; Z79.899 Other long term (current) drug therapy
CPT/HCPCS: 36415; 80053; 85025; 99214